=== PATIENT | male | born 1945 | race Caucasian/White ===

== ENCOUNTER 2020-03-16 07:06 | Outpatient (CLI) | payer MEDICARE, SELFPAY ==
--- NOTE | ~2020-03-16 | CT_ITS ---
EXAMINATION: CT abdomen pelvis w con DATE: 03/16/2020 07:58 INDICATION: Unintentional weight loss. TECHNIQUE: Computed tomography (CT) of the abdomen and pelvis was performed with 100 mL Omnipaque 350 intravenous contrast. Automated exposure control and iterative reconstruction technique were employe d. The dose-length product was 441.99 mGy-cm. COMPARISON: None. FINDINGS: The visualized portions of the lung bases demonstrate mild atelectasis. No pleural effusion . The heart size is normal. No pericardial effusion. 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 There is an 8 mm low-attenuation lesion at the periphery of right hepatic lobe, likely benign. The spleen, pancreas, adrenal glands, and right kidney are normal. There is a 1 mm stone in left kidney. There are bilateral inguinal hernias containing fat. The prostate is moderately enlarged. There is d iverticulosis of the colon without evidence of diverticulitis. There are no dilated loops of bowel. T he appendix is normal. There are no pathologically enlarged lymph nodes. There is no free intraperito kim fluid. There is lumbar levoscoliosis and severe spondylosis. IMPRESSION: 1. No specific evidence of malignancy. Reviewed, dictated and finalized at location B.
[2020-03-16 07:50] LABS: Estimated Glomerular Filt Rate > 60
== END 2020-03-16 07:07 | disposition home or self-care (01) ==
PROVIDERS: PCP Physician Assistant; Visit Provider Physician Assistant
DX: R63.4 Abnormal weight loss (principal)
CPT/HCPCS: 74177; Q9967

== ENCOUNTER 2021-05-08 01:41 | Day surgery (SDC) | payer MEDICARE, SELFPAY ==
[2021-04-23 10:54] VITALS: BMI 24.5
--- NOTE | 2021-05-08 08:23 | WPDHPUPDATE1 ---
History and Physical Update Update Date/Time: 05/08/21 08:23 History and Physical has been reviewed, including an updated exam of the patient. There are NO changes in the patient's condition. Risks, benefits, and alternatives have been discussed and questions answered. Patient agrees to proceed with procedure.
[2021-05-08 08:24] VITALS: BP 117/79; PULSE 127; RESP 18; O2SAT 98; BMI 23.3
[2021-05-08] MEDS: LACTATED RINGERS 1,000 ML 150 ML IV CONT (08:41)
--- NOTE | 2021-05-08 09:13 | P.PNAN_ITS ---
Anes - Initial Pre Proc Eval Procedure: Operation Date: 05/08/21 09:45 Proposed Procedures p Flexible Sigmoidoscopy - Jj Sullivan MD Date/Time: 05/08/21 09:13 Surgeon: Jj Sullivan MD Pre Op Diagnosis: Rectal Bleeding Patient Data Age: 76 Gender: M Height: 1.83 m Weight: 78.1 kg Last Vital Signs Pulse 127 H 05/08/21 08:24 Resp 18 05/08/21 08:24 BP 117/79 05/08/21 08:24 Pulse Ox 98 05/08/21 08:24 Allergies Allergy/AdvReac Type Severity Reaction Status Date / Time No Known Allergies Allergy Verified 05/08/21 08:23 Home Medications Medication Instructions Recorded Confirmed Type aspirin 81 mg tablet,delayed 81 mg PO DAILY 04/12/21 05/08/21 History release metoprolol succinate 25 mg 25 mg PO DAILY 04/12/21 05/08/21 History tablet,extended release 24 hr omeprazole 40 mg capsule,delayed 40 mg PO DAILY 04/12/21 05/08/21 History release Patient hx anesthesia problems: none Family hx anesthesia problems: none Results Review: All pre-operative results and documents have been reviewed as part of the pre-operative evaluation. COUNTS INCLUDE 234 BEDS AT THE [facility] Past Medical History Medical History GERD (gastroesophageal reflux disease) Hypertension Family History Family History Other Family history of malignant neoplasm Hypertension Social History Social History Smoking status: Never smoker Alcohol intake: never Substance use: never Living arrangements: with family Spiritual care concerns: No Anes - Eval Final PreProcedure Day of Procedure 05/08/21 09:13 Patient weight: normal Heart: regular rate and rhythm Lungs: clear to auscultation Airway: Mallampati scale class II Neurological: alert and oriented Last oral intake: >/= 8 hours ASA classification: II Emergent: no Anesthetic plan: proceed Anesthesia type and monitoring: general GIVS and standard monitoring Results Review: All pre-operative results and documents have been reviewed as part of the pre-operative evaluation. Informed Consent: The patient's anesthetic plan and its attendant risks and benefits were discussed with the patient/family/POA. Questions were solicited and answers provided to the satisfaction of the patient/family/POA.
[2021-05-08 09:32] VITALS: BP 96/54; PULSE 88; RESP 21; O2SAT 97
[2021-05-08 09:42] VITALS: BP 121/63; PULSE 88; RESP 23; O2SAT 96
[2021-05-08 09:52] VITALS: BP 133/72; PULSE 86; RESP 18; O2SAT 98
== END 2021-05-08 10:10 | disposition home or self-care (01) ==
PROVIDERS: PCP Physician Assistant; Visit Provider Internal Medicine Gastroenterology
PROC: 0DJD8ZZ Inspection of Lower Intestinal Tract, Via Natural or Artificial Opening Endoscopic (ICD-10-PCS; CPT 45330; principal; 2021-05-08 09:45)
DX: K62.5 Hemorrhage of anus and rectum (principal); K64.8 Other hemorrhoids; K57.30 Diverticulosis of large intestine without perforation or abscess without bleeding; K21.9 Gastro-esophageal reflux disease without esophagitis; I10 Essential (primary) hypertension; Z80.0 Family history of malignant neoplasm of digestive organs
CPT/HCPCS: 45330; J2704; J7120

== ENCOUNTER 2023-05-12 10:43 | Emergency (ER) | payer MEDICARE, SELFPAY ==
--- NOTE | ~2023-05-12 | XR_ITS ---
XR chest 2V 05/12/2023 13:17 Indication: Cough. Status post Covid. Procedure: PA and lateral views of the chest Comparison: No prior studies for comparison. Findings: There is right lower lobe airspace disease which may represent pneumonia or atelectasis. No pleural effusion. No edema. No pneumothorax. No acute osseous abnormality. There are cholecystectomy clips. Impression: 1: Right lower lobe airspace disease may represent pneumonia and/or atelectasis. Reviewed, dictated and finalized at location B. Impression: 1: Right lower lobe airspace disease may represent pneumonia and/or atelectasis .
[2023-05-12 11:03] VITALS: BP 122/73; PULSE 82; RESP 16; TEMP 36.4; O2SAT 97
[2023-05-12 11:10] VITALS: O2SAT 97
--- NOTE | 2023-05-12 12:44 | ED.GENADULT ---
HPI - General Adult General Chief complaint: Unspecified Stated complaint: I can't get over this stuff that I have. Time Seen by Provider: 05/12/23 12:00 History of Present Illness HPI narrative: Patient is a 78-year-old male presenting with diarrhea. Patient states that he was diagnosed with COVID about a month ago. Since that time he has had an ongoing cough. His PCP started him on Tylenol with codeine several weeks ago and he initially was struggling with constipation. States that he stopped taking the prescription and then he started to have diarrhea. States that it has irritated his hemorrhoids. He continues to feel generally weak and they are concerned that he is dehydrated. States that he was nauseated earlier but did not vomit. Reports normal urinary frequency and denies dysuria. He has been keeping down solids and fluids. No chest pain or shortness of breath. No fevers or chills. No further complaints. Related Data Home Medications Medication Instructions Recorded Confirmed aspirin 81 mg tablet,delayed 81 mg PO DAILY 04/12/21 05/08/21 release metoprolol succinate 25 mg 25 mg PO DAILY 04/12/21 05/08/21 tablet,extended release 24 hr omeprazole 40 mg capsule,delayed 40 mg PO DAILY 04/12/21 05/08/21 release Allergies Allergy/AdvReac Type Severity Reaction Status Date / Time No Known Allergies Allergy Verified 05/12/23 11:08 Review of Systems Review of Systems: All systems reviewed & are unremarkable except as noted in HPI and below PMFSH Past Medical History Medical History GERD (gastroesophageal reflux disease) Hypertension Family History Family History Other Family history of malignant neoplasm Hypertension Social History Social History Smoking status: Never smoker Alcohol intake: never Substance use: never Living arrangements: with family Spiritual care concerns: No Exam Narrative: GENERAL: Well-appearing, no acute distress HEAD: Normocephalic, atraumatic. EYES: PERRLA and EOMI. ENT: Mucous membranes moist. NECK: Supple. CHEST: Clear to auscultation. No respiratory distress. HEART: Regular rate and rhythm ABDOMEN: Soft, nontender, nondistended EXTREMITIES: Normal range of motion. SKIN: Warm, dry, no rash. NEURO: Alert and oriented x3. PSYCH: Normal mood and affect. Course Vital Signs Vital signs: Vital Signs Temperature 97.6 F 05/12/23 11:03 Pulse Rate 82 05/12/23 11:03 Respiratory Rate 16 05/12/23 11:03 Blood Pressure 122/73 05/12/23 11:03 Pulse Oximetry 97 05/12/23 11:03 Oxygen Delivery Room Air 05/12/23 11:03 Temperature 97.6 F 05/12/23 11:03 Pulse Rate 82 05/12/23 11:03 Respiratory Rate 16 05/12/23 11:03 Blood Pressure 122/73 05/12/23 11:03 Pulse Oximetry 97 05/12/23 11:10 Oxygen Delivery Room Air 05/12/23 11:10 Medical Decision Making MDM Narrative Medical decision making narrative: Patient is a 78-year-old male presenting with diarrhea and 1 month of cough. Vitals are stable. Exam remarkable for the above. Plan for basic labs, IV fluids, Zofran, chest x-ray. Chest x-ray with possible small right lower lobe pneumonia. We will start the patient on some Doxy. Blood work is unremarkable. UA is unremarkable. On reevaluation, the patient is resting comfortably. States that his nausea has improved. He feels comfortable going home. Advise close PCP follow-up. Appropriate return precautions given. Discharged in stable condition. Differential Diagnosis Differential Diagnosis: Pneumonia, postviral cough, diarrhea, dehydration Medical Records Medical records reviewed: Yes I reviewed the external patient's medical records. Vital Signs Vital Signs: Vital Signs Temperature 97.6 F 05/12/23 11:03 Pulse Rate 82
[2023-05-12] MEDS: SODIUM CHLORIDE 0.9% IV 1,000 ML 999 ML IV CONT (12:55)
[2023-05-12] MEDS: ONDANSETRON INJ 4 MG/2 ML VIAL IV PUSH (12:56)
[2023-05-12 13:49] LABS: Basophils Percent Auto 0.6 % (0.2-1.2); Eosinophils Absolute Auto 0.1 K/mm3 (0-0.3); Eosinophils Percent Auto 0.8 % (0-4.4); Hematocrit 33.6 % (42.0-52.0); Immature Granulocyte Absolute 0.03 K/mm3 (0.00-0.031); Immature Granulocyte Percent A 0.5 % (0-0.5); Lymphocytes Absolute Auto 1.22 K/mm3 (0.9-3.2); Lymphocytes Percent Auto 18.3 % (18.3-44.2); Mean Corpuscular HGB Conc 35.7 g/dl (32-36); Mean Corpuscular Hemoglobin 34.9 pg (26-34); Mean Corpuscular Volume 97.7 fl (80-100); Mean Platelet Volume 9.2 fl (7.4-10.4); Monocytes Absolute Auto 0.6 K/mm3 (0.1-0.6); Monocytes Percent Auto 9.2 % (2.6-8.5); Neutrophils Absolute Auto 4.7 K/mm3 (1.3-6.7); Neutrophils Percent Auto 70.6 % (45.5-73.1); Platelet Count Result 324 k/mm3 (150-375); Red Blood Count 3.44 M/mm3 (4.6-6.20); Red Cell Distribution Width 15.2 % (11.5-14.5); White Blood Count 6.7 K/mm3 (4.5-10.0)
[2023-05-12 13:59] LABS: Anion Gap 8 mmol/L (8-16); Blood Urea Nitrogen 16 mg/dL (9-20); Calcium 8.6 mg/dL (8.4-10.2); Carbon Dioxide 19 mmol/L (22-30); Chloride 109 mmol/L (98-107); Estimated CRCL calculation 85 ml/min; Estimated Glomerular Filt Rate > 60; Glucose 93 mg/dL (65-110); Sodium 136 mmol/L (137-145)
[2023-05-12 14:32] LABS: Appearance Urine Cloudy (Clear); Bacteria Urine None Seen /hpf; Bilirubin Urine 1+ (Negative); Blood Urine Negative (Negative); Color Urine Dark Yellow (Yellow); Glucose Urine UA Negative (Negative); Ketones Urine Trace mg/dL (Negative); Leukocyte Esterase Ur Trace LEU/UL (Negative); Nitrate Urine Negative (Negative); Non Pathogenic Casts 0-2; Protein Urine Negative (Negative); RBC Urine 0-2 /hpf (0-2); Specific Grav Ur 1.031 (1.001-1.035); Squamous Epithelial Cell Urine None seen /hpf (Few); WBC Urine 0-5 /hpf; pH Urine 5.5 (5.0-9.0)
[2023-05-12 14:38] LABS: Add Urine Microscopic? YES
== END 2023-05-12 15:24 | disposition home or self-care (01) ==
PROVIDERS: Emergency Provider Emergency Medicine; PCP Physician Assistant
DX: J18.9 Pneumonia, unspecified organism (principal); I10 Essential (primary) hypertension; K21.9 Gastro-esophageal reflux disease without esophagitis
CPT/HCPCS: 36415; 71046; 80048; 81001; 85025; 96361; 96374; 99284; J2405; J7030

== ENCOUNTER 2023-07-03 08:17 | Outpatient (CLI) | payer MEDICARE, SELFPAY ==
--- NOTE | 2023-07-03 | EST_ITS ---
Patient Info Name: Marek Schulz Age: 78 years : 1945 Gender: Male Ht: 72 in Wt: 165 lbs BSA: 1.95 m2 HR: 144 bpm BP: 199 / 84 mmHg Technical Quality: Fair Exam Date: 07/03/2023 8:50 AM Exam Location: Echo Lab Exam Room: stress lab Patient Status: Outpatient Admit Date: 07/03/2023 Staff Ordering Physician: Thomas Senior MD (lashell/pro) Package Dyer: Hellen Andrea RDCS Attending Provider: PAOLA GUZMÁN NP Referring Physician: Parrish LARSON; Exercise Technologist: Hellen Andrea RCS Nurse: Paola Guzmán APN Exam Type: CA stress echo Study Info Indications - alvarez Treadmill exercise stress echocardiogram is performed. Summary 1. Reduced functional capacity, achieving 5.3 METs of workload. 2. Occasional PACs during exercise. 3. There is baseline motion artifact during parts of exercise which limits interpretation. No clear abnormal ST/T wave changes diagnostic of ischemia with exercise. 4. Normal left venticular systolic function with no regional wall motion abnormalities noted at rest. 5. Negative stress echocardiogram for ischemia. 6. Stress test supervised by Paola Guzmán NP. Stress test interpreted by Thomas Senior MD. Stress Echo Findings Left Ventricle Normal left venticular systolic function with no regional wall motion abnormalities noted at rest. Normal augmentation of all wall segments without evidence of ischemia with stress. Protocol: [facility] Stress ECG Details Stage: REST Duration (min): 0 min : 59 sec Speed (mph): 0.0 Grade (%): 0 HR (bpm): 63 SBP (mmHg): 142 DBP (mmHg): 77 METS: --- Stage: REST Duration (min): 9 min : 2 sec Speed (mph): 0.0 Grade (%): 0 HR (bpm): 73 SBP (mmHg): 142 DBP (mmHg): 77 METS: --- Stage: STAGE 1 Duration (min): 1 min : 0 sec Speed (mph): 1.7 Grade (%): 10 HR (bpm): 105 SBP (mmHg): 142 DBP (mmHg): 77 METS: --- Stage: STAGE 1 Duration (min): 2 min : 0 sec Speed (mph): 1.7 Grade (%): 10 HR (bpm): 124 SBP (mmHg): 142 DBP (mmHg): 77 METS: --- Stage: STAGE 1 Duration (min): 3 min : 0 sec Speed (mph): 1.7 Grade (%): 10 HR (bpm): 136 SBP (mmHg): 199 DBP (mmHg): 84 METS: --- Stage: STAGE 2 Duration (min): 1 min : 0 sec Speed (mph): 0.0 Grade (%): 0 HR (bpm): 130 SBP (mmHg): 199 DBP (mmHg): 84 METS: --- Stage: STAGE 2 Duration (min): 2 min : 0 sec Speed (mph): 0.0 Grade (%): 0 HR (bpm): 110 SBP (mmHg): 199 DBP (mmHg): 84 METS: --- Stage: STAGE 2 Duration (min): 3 min : 0 sec Speed (mph): 0.0 Grade (%): 0 HR (bpm): 99 SBP (mmHg): 199 DBP (mmHg): 84 METS: --- Stage: STAGE 2 Duration (min): 4 min : 0 sec Speed (mph): 0.0 Grade (%): 0 HR (bpm): 82 SBP (mmHg): 199 DBP (mmHg): 84 METS: --- Stage: STAGE 2 Duration (min): 5 min : 0 sec Speed (mph): 0.0 Grade (%): 0 HR (bpm): 78 SBP (mmHg): 183 DBP (mmHg): 87 METS: --- Stage: STAGE 2 Duration (min): 5 min : 20 sec Speed (mph): 0.0 Grade (%):
== END 2023-07-03 08:18 | disposition home or self-care (01) ==
LOC: ANHCARD 08:20
PROVIDERS: PCP Physician Assistant; Visit Provider Internal Medicine
DX: R06.09 Other forms of dyspnea (principal)
CPT/HCPCS: 93351

== ENCOUNTER 2024-12-21 13:17 | Emergency (ER) | payer MEDICARE, SELFPAY ==
[2024-12-21 13:28] VITALS: BP 132/68; PULSE 80; RESP 16; TEMP 36.8; O2SAT 96
--- OUTSIDE RECORDS SUMMARY | 2024-12-21 13:28 | XMS_ITS | Data Portability ---
[facility] Address [address] [place] [address] Assessment No assessment recorded. Plan of Treatment Reminders Order Date Submit Date Provider Last Modified By Organization Details Last Modified Time Details Appointments None recorded. Lab CBC 2024 025 [facility], [address], [address], [place], [address], 5 13:02:01 iron + TIBC + ferritin, serum 2024 025 [facility], [address], [address], [place], [address], 5 13:01:58 CMP, serum or plasma 2024 025 [facility], [address], [address], [place], [address], 5 13:02:00 fecal occult blood, immunoassay , stool 2024 025 [facility], [address] [facility], [place], [address], 5 16:35:29 lipid panel, serum 2023 024 [facility], [address], [address], [place], [address], 4 11:00:37 carcinoembr yonic Ag, quant, serum or plasma 2023 024 [facility] [place], [address], [address], [place], [address], 4 11:00:39 CMP, serum or plasma 2023 024 [facility] [place], [address], [address], [place], [address], 4 11:00:38 CBC w/ auto diff 2023 024 [facility] [place], [address], [address]avi [address], [place], [address], 4 11:00:38 lipid panel, serum 2022 023 [facility] [place], [address], [address], [place], [address], 3 06:55:59 urinalysis, complete 2022 023 [facility] [place], [address], [address], [place], [address], 3 06:56:01 CBC w/ auto diff 2022 023 [facility] [place], [address], [address], [place], [address], 3 06:56:02 iron + TIBC + ferritin, serum 2022 023 [facility] [place], [address], [address], [place], [address], 3 06:55:59 CMP, serum or plasma 2022 023 [facility] [place], [address], [address], [place], [address], 3 06:56:00 carcinoembr yonic Ag, quant, serum or plasma 2022 023 [facility] [place], [address], [address], [place], [address], 3 06:56:03 erythrocyte sedimentati on rate by westergren method 2022 023 [facility], [address], [address], [place], [address], 3 06:56:01 carcinoembr yonic Ag, quant, serum or plasma 2021 022 WA[facility]A [facility] [place], [address], [address], [place], [address], 2 01:14:04 CMP, serum or plasma 2021 022 [facility], [address], [address], [place], [address], 2 01:14:03 lipid panel, serum 2021 022 [facility], [address], [address]avi [address], [place], [address], 2 01:14:02 CBC w/ auto diff 2021 022 [facility], [address], [address], [place], [address], 2 01:14:03 Referral cardiologis t referral 2022 023 [facility], [address], [address], [place], [address], 3 11:53:13 Procedures None recorded. Surgeries None recorded. Imaging None recorded. Medication Orders omeprazole 40 mg capsule,del ayed release 2023 024 [facility], [address] [place] [address], [address], [place], [place], [id number], 4 15:22:08 hydrocortis one 2.5 % topical cream with perineal applicator 2022 023 [id number], [address], [place], [place], [id number], 3 11:14:54 omeprazole 40 mg capsule,del ayed release 2022 023 WAIMEA [facility], [address] [place] [address], [address], [place], [place], [id number], 3 11:14:49 cyanocobala min (vit B-12) 1,000 mcg/mL injection solution 2022 023 Not available 14:53:11 acetaminoph en 300 mg-codeine 30 mg tablet 2022 023 [facility], [address], [place], [address], 3 10:36:02 Patient TargetsNo targets recorded. Patient Instructions Encounter Date Encounter Id Patient Instructions Last Modified By Organization Details Last Modified Time 03/19/2022 [id number] advance care planning: care instructions Not available 03/19/2022 11:45:30 preventing falls : care instructions Not available 03/19/2022 11:45:30 Medicare [facility] Preventive Checklist Not available 03/19/2022 11:45:30 eating healthy foods: care instructions Not available 03/19/2022 11:45:30 04/29/2023 [id number] advance care planning: care instructions Not available 04/29/2023 10:33:36 preventing falls : care instructions Not available 04/29/2023 10:33:37 eating healthy foods: care instructions Not available 04/29/2023 10:33:37 04/15/2024 [id number] advance care planning: care instructions Not available 04/15/2024 15:22:08 preventing falls : care instructions Not available 04/15/2024 15:22:08 Medicare [facility] Preventive Checklist Not available 04/15/2024 15:22:08 eating healthy foods: care instructions Not available 04/15/2024 15:22:08 AD8 Dementia Screening Interview Not available 04/15/2024 15:22:08 Reason for Referral [place] Referral for Dy spnea on exertion Referring Physician: Guadalupe Ware, Family Medicine, Encounter Date: 04/29/2023 Results Created Date Observation Date Name Description Value Unit Range Abnormal Flag Note LastModifiedBy Organization Detail LastModifiedTime 03/19/20 22 03/21/2022 LIPID PANEL , STAND KIMBERLYN cholesterol, total 161 mg/dL <200 normal Not Available [facility] [address], [address], 03/21/2022 01:14:02 03/19/20 22 03/21/2022 LIPID PANEL , STAND KIMBERLYN HDL cholesterol 68 mg/dL > or = 40 normal Not Available [facility] [address], [address], 03/21/2022 01:14:02 03/19/20 22 03/21/2022 LIPID PANEL , STAND KIMBERLYN triglyceride s 62 mg/dL <150 normal Not Available [facility] [address], [address], 03/21/2022 01:14:02 03/19/20 22 03/21/2022 LIPID PANEL , STAND KIMBERLYN LDL-choleste rol 79 mg/dL _(zina c) normal Refer ence range : <100 Catie able range <100 mg/dL for prima ry preve ntion ; <70 mg/dL for patie nts with CHD or diabe tic patie nts with > or = 2 CHD risk facto rs. LDL-C is now calcu lated using the [facility] n-Hop kins daryl ross, which is a valid ated novel metho d provi mg rodriguez r accur acy than the Fried gene equat ion in the estim ation of LDL-C . Magaly n SS et al. BRIT. 2013; 310(1 9): 2061- 2068 (http ://ed ucati on.Remotemedical carleeFracture. Athersys/f aq/FA Q164) Not Available [address], [address], 03/21/2022 01:14:02 03/19/20 22 03/21/2022 LIPID PANEL , STAND KIMBERLYN chol/HDLC ratio 2.4 (calc ) <5.0 normal Not Available [address], [address], 03/21/2022 01:14:02 03/19/2003/21/2022 LIPID PANEL , STAND KIMBERLYN non HDL cholesterol 93 mg/dL _(zina c) <130 normal For patie nts with diabe lazaro plus 1 major ASCVD risk facto r, treat ing to a non-H DL-C goal of <100 mg/dL (LDL- C of <70 mg/dL ) is mere perales n. Not Available [address] [address] [place], [address], 03/21/2022 01:14:02 03/19/20 22 03/21/2022 COMPR EHENS MATTHEW METAB OLIC PANEL glucose 90 mg/dL 65-99 normal Fasti ng refer ence inter mike Not Available [address] [address] [place], [address], 03/21/2022 01:14:03 03/19/20 22 03/21/2022 COMPR EHENS MATTHEW METAB OLIC PANEL urea nitrogen (BUN) 17 mg/dL 7-25 normal Not Available [address] [address] [place], [address], 03/21/2022 01:14:03 03/19/20 22 03/21/2022 COMPR EHENS MATTHEW METAB OLIC PANEL creatinine 0.91 mg/dL 0.70-1 .28 normal Not Available [address], [address], 03/21/2022 01:14:03 03/19/20 22 03/21/2022 COMPR EHENS MATTHEW METAB OLIC PANEL eGFR 88 mL/mi n/1.7 3m2 > or = 60 normal The eGFR is based on the CKD-E PI 2020 equat ion. To calcu late the new eGFR from a previ ous Creat inine or Cysta tin C resul t, go to https ://felicity cuello.jermaine higgins/saad moe s/ kdoqi /gfr% 5Fcal culat or Not Available [address], [address], 03/21/2022 01:14:03 03/19/20 22 03/21/2022 COMPR EHENS MATTHEW METAB OLIC PANEL BUN/creatini ne ratio NOT APPLIC ABLE (calc ) 6-22 Not Available [address], [address], 03/21/2022 01:14:03 03/19/20 22 03/21/2022 COMPR EHENS MATTHEW METAB OLIC PANEL sodium 138 mmol/ L 135-14 6 normal Not Available [address], [address], 03/21/2022 01:14:03 03/19/20 22 03/21/2022 COMPR EHENS MATTHEW METAB OLIC PANEL potassium 4.8 mmol/ L 3.5-5. 3 normal Not Available [address], [address], 03/21/2022 01:14:03 03/19/20 22 03/21/2022 COMPR EHENS MATTHEW METAB OLIC PANEL chloride 107 mmol/ L 98-110 normal Not Available [address], [address], 03/21/2022 01:14:03 03/19/20 22 03/21/2022 COMPR EHENS MATTHEW METAB OLIC PANEL carbon dioxide 24 mmol/ L 20-32 normal Not Available [address], [address], 03/21/2022 01:14:03 03/19/20 22 03/21/2022 COMPR EHENS MATTHEW METAB OLIC PANEL calcium 9.1 mg/dL 8.6-10 .3 normal Not Available [address], [address], 03/21/2022 01:14:03 03/19/20 22 03/21/2022 COMPR EHENS MATTHEW METAB OLIC PANEL protein, total 6.5 g/dL 6.1-8. 1 normal Not Available [address], [address], 03/21/2022 01:14:03 03/19/20 22 03/21/2022 COMPR EHENS MATTHEW METAB OLIC PANEL albumin 4.2 g/dL 3.6-5. 1 normal Not Available [address], [address], 03/21/2022 01:14:03 03/19/20 22 03/21/2022 COMPR EHENS MATTHEW METAB OLIC PANEL globulin 2.3 g/dL_ (calc ) 1.9-3. 7 normal Not Available [address], [address], 03/21/2022 01:14:03 03/19/20 22 03/21/2022 COMPR EHENS MATTHEW METAB OLIC PANEL albumin/glob ulin ratio 1.8 (calc ) 1.0-2. 5 normal Not Available [address], [address], 03/21/2022 01:14:03 03/19/20 22 03/21/2022 COMPR EHENS MATTHEW METAB OLIC PANEL bilirubin, total 0.9 mg/dL 0.2-1. 2 normal Not Available [address], [address], 03/21/2022 01:14:03 03/19/20 22 03/21/2022 COMPR EHENS MATTHEW METAB OLIC PANEL alkaline phosphatase 67 U/L 35-144 normal Not Available [facility] [employer] [address], [address], 03/21/2022 01:14:03 03/19/20 22 03/21/2022 COMPR EHENS MATTHEW METAB OLIC PANEL AST 15 U/L 10-35 normal Not Available [address], [address], 03/21/2022 01:14:03 03/19/20 22 03/21/2022 COMPR EHENS MATTHEW METAB OLIC PANEL ALT 10 U/L 9-46 normal Not Available [address], [address], 03/21/2022 01:14:03 03/19/20 22 03/21/2022 CBC (INCL UDES DIFF/ PLT) white blood cell count 5.7 thous and/u L 3.8-10 .8 normal Not Available [address], [address], 03/21/2022 01:14:03 03/19/20 22 03/21/2022 CBC (INCL UDES DIFF/ PLT) red blood cell count 4.00 killian on/uL 4.20-5 .80 low Not Available [address], [address], 03/21/2022 01:14:03 03/19/20 22 03/21/2022 CBC (INCL UDES DIFF/ PLT) hemoglobin 13.1 g/dL 13.2-1 7.1 low Not Available [address], [address], 03/21/2022 01:14:03 03/19/2003/21/2022 CBC (INCL UDES DIFF/ PLT) hematocrit 38.1 % 38.5-5 0.0 low Not Available [address], [address], 03/21/2022 01:14:03 03/19/20 22 03/21/2022 CBC (INCL UDES DIFF/ PLT) MCV 95.3 fL 80.0-1 00.0 normal Not Available [facility] [address], [address], 03/21/2022 01:14:03 03/19/20 22 03/21/2022 CBC (INCL UDES DIFF/ PLT) MCH 32.8 pg 27.0-3 3.0 normal Not Available [address], [address], 03/21/2022 01:14:03 03/19/2003/21/2022 CBC (INCL UDES DIFF/ PLT) MCHC 34.4 g/dL 32.0-3 6.0 normal Not Available [address], [address], 03/21/2022 01:14:03 03/19/2003/21/2022 CBC (INCL UDES DIFF/ PLT) RDW 13.0 % 11.0-1 5.0 normal Not Available [facility] [address], [address], 03/21/2022 01:14:03 03/19/2003/21/2022 CBC (INCL UDES DIFF/ PLT) platelet count 285 thous and/u L 140-40 0 normal Not Available [facility] [address], [address], 03/21/2022 01:14:03 03/19/20 22 03/21/2022 CBC (INCL UDES DIFF/ PLT) MPV 10.4 fL 7.5-12 .5 normal Not Available [address], [address], 03/21/2022 01:14:03 03/19/20 22 03/21/2022 CBC (INCL UDES DIFF/ PLT) absolute neutrophils 3842 cells /uL 1500-7 800 normal Not Available [address], [address], 03/21/2022 01:14:03 03/19/20 22 03/21/2022 CBC (INCL UDES DIFF/ PLT) absolute lymphocytes 1146 cells /uL 850-39 00 normal Not Available [address], [address], 03/21/2022 01:14:03 03/19/20 22 03/21/2022 CBC (INCL UDES DIFF/ PLT) absolute monocytes 547 cells /uL 200-95 0 normal Not Available [address], [address], 03/21/2022 01:14:03 03/19/20 22 03/21/2022 CBC (INCL UDES DIFF/ PLT) absolute eosinophils 103 cells /uL 15-500 normal Not Available [address], [address], 03/21/2022 01:14:03 03/19/20 22 03/21/2022 CBC (INCL UDES DIFF/ PLT) absolute basophils 63 cells /uL 0-200 normal Not Available [address], [address], 03/21/2022 01:14:03 03/19/20 22 03/21/2022 CBC (INCL UDES DIFF/ PLT) neutrophils 67.4 % normal Not Available [address], [address], 03/21/2022 01:14:03 03/19/20 22 03/21/2022 CBC (INCL UDES DIFF/ PLT) lymphocytes 20.1 % normal Not Available [address], [address], 03/21/2022 01:14:03 03/19/20 22 03/21/2022 CBC (INCL UDES DIFF/ PLT) monocytes 9.6 % normal Not Available [facility] [address], [address], 03/21/2022 01:14:03 03/19/20 22 03/21/2022 CBC (INCL UDES DIFF/ PLT) eosinophils 1.8 % normal Not Available [address], [address], 03/21/2022 01:14:03 03/19/20 22 03/21/2022 CBC (INCL UDES DIFF/ PLT) basophils 1.1 % normal Not Available [address], [address], 03/21/2022 01:14:03 03/19/20 22 03/21/2022 CEA cea 0.7 NG/mL see note: normal Refer ence Range : Non-S moker : <2.5 Smoke r: <5.0 This test was perfo rmed using the [employer] chemi lumin escen t metho d. Value s obtai rosibel from diffe rent assay metho ds canno t be used inter jackson eably . CEA level s, regar dless of value , shoul d not be inter prete d as absol [place] evide nce of the prese nce or absen ce of disea se. Not Available [address], [address], 03/21/2022 01:14:04 04/29/20 23 05/01/2023 IRON, TIBC AND NYA TIN PANEL iron, total 79 mcg/d L 50-180 normal Not Available [address], [address], 05/01/2023 06:55:59 04/29/2005/01/2023 IRON, TIBC AND NYA TIN PANEL iron binding capacity 210 mcg/d L_(ca lc) 250-42 5 low Not Available [address], [address], 05/01/2023 06:55:59 04/29/2005/01/2023 IRON, TIBC AND NYA TIN PANEL % saturation 38 %_(ca lc) 20-48 normal Not Available [address], [address], 05/01/2023 06:55:59 04/29/2005/01/2023 IRON, TIBC AND NYA TIN PANEL ferritin 166 NG/mL 24-380 normal Not Available [address], [address], 05/01/2023 06:55:59 04/29/2005/01/2023 LIPID PANEL , STAND KIMBERLYN cholesterol, total 131 mg/dL <200 normal Not Available [address], [address], 05/01/2023 06:55:59 04/29/2005/01/2023 LIPID PANEL , STAND KIMBERLYN HDL cholesterol 45 mg/dL > or = 40 normal Not Available [address], [address], 05/01/2023 06:55:59 04/29/2005/01/2023 LIPID PANEL , STAND KIMBERLYN triglyceride s 100 mg/dL <150 normal Not Available [address], [address], 05/01/2023 06:55:59 04/29/2005/01/2023 LIPID PANEL , STAND KIMBERLYN LDL-choleste rol 67 mg/dL _(zina c) normal Refer ence range : <100 Catie able range <100 mg/dL for prima ry preve ntion ; <70 mg/dL for patie nts with CHD or diabe tic patie nts with > or = 2 CHD risk facto rs. LDL-C is now calcu lated using the Mag[employer] n-Hop kins calcu sherri n, which is a valid ated novel metho d provi ding michael r accur acy than the Fried gene equat ion in the estim ation of LDL-C . Magaly ross SS et al. BRIT. 2013; 310(1 5): 2061- 2068 (http ://ed ucati on.Remotemedical carleeFracture. com/f aq/FA Q164) Not Available [facility] [address] [address] [place], [address], 05/01/2023 06:55:59 04/29/2005/01/2023 LIPID PANEL , STAND KIMBERLYN chol/HDLC ratio 2.9 (calc ) <5.0 normal Not Available [facility] [address] [address] [place], [address], 05/01/2023 06:55:59 04/29/2005/01/2023 LIPID PANEL , STAND KIMBERLYN non HDL cholesterol 86 mg/dL _(zina c) <130 normal For patie nts with diabe lazaro plus 1 major ASCVD risk facto r, treat ing to a non-H DL-C goal of <100 mg/dL (LDL- C of <70 mg/dL ) is consi dered a thera peuti c optio n. Not Available [employer] [facility] [address] [facility] [place], [address], 05/01/2023 06:55:59 04/29/2005/01/2023 COMPR EHENS MATTHEW METAB OLIC PANEL glucose 94 mg/dL 65-99 normal Fasti ng refer ence inter mike Not Available [facility] [address] [address] [place], [address], 05/01/2023 06:56:00 04/29/2005/01/2023 COMPR EHENS MATTHEW METAB OLIC PANEL urea nitrogen (BUN) 12 mg/dL 7-25 normal Not Available [address], [place], [address], 05/01/2023 06:56:00 04/29/2005/01/2023 COMPR EHENS MATTHEW METAB OLIC PANEL creatinine 0.78 mg/dL 0.70-1 .28 normal Not Available [address], [address], 05/01/2023 06:56:00 04/29/2005/01/2023 COMPR EHENS MATTHEW METAB OLIC PANEL eGFR 92 mL/mi n/1.7 3m2 > or = 60 normal Not Available [address], [address], 05/01/2023 06:56:00 04/29/2005/01/2023 COMPR EHENS MATTHEW METAB OLIC PANEL BUN/creatini ne ratio SEE NOTE: (calc ) 6-22 Not Repor carolyn: BUN and Creat inine are withi n refer ence range . Not Available [address], [address], 05/01/2023 06:56:00 04/29/2005/01/2023 COMPR EHENS MATTHEW METAB OLIC PANEL sodium 139 mmol/ L 135-14 6 normal Not Available [address] [address] [place], [address], 05/01/2023 06:56:00 04/29/2005/01/2023 COMPR EHENS MATTHEW METAB OLIC PANEL potassium 4.5 mmol/ L 3.5-5. 3 normal Not Available [address], [address], 05/01/2023 06:56:00 04/29/2005/01/2023 COMPR EHENS MATTHEW METAB OLIC PANEL chloride 107 mmol/ L 98-110 normal Not Available [address], [address], 05/01/2023 06:56:00 04/29/2005/01/2023 COMPR EHENS MATTHEW METAB OLIC PANEL carbon dioxide 25 mmol/ L 20-32 normal Not Available [address], [address], 05/01/2023 06:56:00 04/29/2005/01/2023 COMPR EHENS MATTHEW METAB OLIC PANEL calcium 8.7 mg/dL 8.6-10 .3 normal Not Available [address], [address], 05/01/2023 06:56:00 04/29/2005/01/2023 COMPR EHENS MATTHEW METAB OLIC PANEL protein, total 6.1 g/dL 6.1-8. 1 normal Not Available [address], [address], 05/01/2023 06:56:00 04/29/2005/01/2023 COMPR EHENS MATTHEW METAB OLIC PANEL albumin 3.9 g/dL 3.6-5. 1 normal Not Available [address], [address], 05/01/2023 06:56:00 04/29/2005/01/2023 COMPR EHENS MATTHEW METAB OLIC PANEL globulin 2.2 g/dL_ (calc ) 1.9-3. 7 normal Not Available [address], [address], 05/01/2023 06:56:00 04/29/2005/01/2023 COMPR EHENS MATTHEW METAB OLIC PANEL albumin/glob ulin ratio 1.8 (calc ) 1.0-2. 5 normal Not Available [address], [address], 05/01/2023 06:56:00 04/29/2005/01/2023 COMPR EHENS MATTHEW METAB OLIC PANEL bilirubin, total 0.8 mg/dL 0.2-1. 2 normal Not Available [address], [address], 05/01/2023 06:56:00 04/29/2005/01/2023 COMPR EHENS MATTHEW METAB OLIC PANEL alkaline phosphatase 72 U/L 35-144 normal Not Available [address], [address], 05/01/2023 06:56:00 04/29/2005/01/2023 COMPR EHENS MATTHEW METAB OLIC PANEL AST 16 U/L 10-35 normal Not Available [address], [address], 05/01/2023 06:56:00 04/29/2005/01/2023 COMPR EHENS MATTHEW METAB OLIC PANEL ALT 10 U/L 9-46 normal Not Available [address], [address], 05/01/2023 06:56:00 04/29/2005/01/2023 URINA LYSIS , COMPL ETE color DARK YELLOW yellow normal Not Available [address], [address], 05/01/2023 06:56:00 04/29/2005/01/2023 URINA LYSIS , COMPL ETE appearance TURBID clear abnormal Not Available [address], [address], 05/01/2023 06:56:00 04/29/2005/01/2023 URINA LYSIS , COMPL ETE specific gravity 1.022 1.001- 1.035 normal Not Available [address], [address], 05/01/2023 06:56:00 04/29/2005/01/2023 URINA LYSIS , COMPL ETE pH < OR = 5.0 5.0-8. 0 normal Not Available [address], [address], 05/01/2023 06:56:00 04/29/2005/01/2023 URINA LYSIS , COMPL ETE glucose NEGATI VE negati ve normal Not Available [address], [address], 05/01/2023 06:56:00 04/29/2005/01/2023 URINA LYSIS , COMPL ETE bilirubin NEGATI VE negati ve normal Not Available [address], [address], 05/01/2023 06:56:00 04/29/2005/01/2023 URINA LYSIS , COMPL ETE ketones NEGATI VE negati ve normal Not Available [address], [address], 05/01/2023 06:56:00 04/29/2005/01/2023 URINA LYSIS , COMPL ETE occult blood NEGATI VE negati ve normal Not Available [address], [address], 05/01/2023 06:56:00 04/29/2005/01/2023 URINA LYSIS , COMPL ETE protein NEGATI VE negati ve normal Not Available [address], [address], 05/01/2023 06:56:00 04/29/2005/01/2023 URINA LYSIS , COMPL ETE nitrite NEGATI VE negati ve normal Not Available [address], [address], 05/01/2023 06:56:00 04/29/2005/01/2023 URINA LYSIS , COMPL ETE leukocyte esterase NEGATI VE negati ve normal Not Available [address], [address], 05/01/2023 06:56:00 04/29/2005/01/2023 URINA LYSIS , COMPL ETE WBC NONE SEEN /hpf < or = 5 normal Not Available [address], [address], 05/01/2023 06:56:00 04/29/2005/01/2023 URINA LYSIS , COMPL ETE RBC NONE SEEN /hpf < or = 2 normal Not Available [address], [address], 05/01/2023 06:56:00 04/29/2005/01/2023 URINA LYSIS , COMPL ETE squamous epithelial cells NONE SEEN /hpf < or = 5 normal Not Available [address], [address], 05/01/2023 06:56:00 04/29/2005/01/2023 URINA LYSIS , COMPL ETE bacteria NONE SEEN /hpf none seen normal Not Available [address], [address], 05/01/2023 06:56:00 04/29/2005/01/2023 URINA LYSIS , COMPL ETE hyaline cast NONE SEEN /lpf none seen normal Not Available [address], [address], 05/01/2023 06:56:00 04/29/2005/01/2023 SED RATE BY MODIF IED KRYSTAL HIGGINSREN sed rate by modified westergren 5 mm/h < or = 20 normal Not Available [address], [address], 05/01/2023 06:56:01 04/29/2005/01/2023 CBC (INCL UDES DIFF/ PLT) white blood cell count 6.8 thous and/u L 3.8-10 .8 normal Not Available [address], [address], 05/01/2023 06:56:02 04/29/2005/01/2023 CBC (INCL UDES DIFF/ PLT) red blood cell count 4.07 killian on/uL 4.20-5 .80 low Not Available [address], [address], 05/01/2023 06:56:02 04/29/2005/01/2023 CBC (INCL UDES DIFF/ PLT) hemoglobin 13.2 g/dL 13.2-1 7.1 normal Not Available [address], [address], 05/01/2023 06:56:02 04/29/2005/01/2023 CBC (INCL UDES DIFF/ PLT) hematocrit 38.4 % 38.5-5 0.0 low Not Available [address], [address], 05/01/2023 06:56:02 04/29/2005/01/2023 CBC (INCL UDES DIFF/ PLT) MCV 94.3 fL 80.0-1 00.0 normal Not Available [facility] [address], [address], 05/01/2023 06:56:02 04/29/2005/01/2023 CBC (INCL UDES DIFF/ PLT) MCH 32.4 pg 27.0-3 3.0 normal Not Available [address] [place], [address], 05/01/2023 06:56:02 04/29/2005/01/2023 CBC (INCL UDES DIFF/ PLT) MCHC 34.4 g/dL 32.0-3 6.0 normal Not Available [address], [address], 05/01/2023 06:56:02 04/29/2005/01/2023 CBC (INCL UDES DIFF/ PLT) RDW 13.6 % 11.0-1 5.0 normal Not Available [address], [address], 05/01/2023 06:56:02 04/29/2005/01/2023 CBC (INCL UDES DIFF/ PLT) platelet count 279 thous and/u L 140-40 0 normal Not Available [address], [address], 05/01/2023 06:56:02 04/29/2005/01/2023 CBC (INCL UDES DIFF/ PLT) MPV 9.6 fL 7.5-12 .5 normal Not Available [address], [address], 05/01/2023 06:56:02 04/29/2005/01/2023 CBC (INCL UDES DIFF/ PLT) absolute neutrophils 4903 cells /uL 1500-7 800 normal Not Available [address], [address], 05/01/2023 06:56:02 04/29/2005/01/2023 CBC (INCL UDES DIFF/ PLT) absolute lymphocytes 884 cells /uL 850-39 00 normal Not Available [address], [address], 05/01/2023 06:56:02 04/29/2005/01/2023 CBC (INCL UDES DIFF/ PLT) absolute monocytes 884 cells /uL 200-95 0 normal Not Available [address], [address], 05/01/2023 06:56:02 04/29/2005/01/2023 CBC (INCL UDES DIFF/ PLT) absolute eosinophils 88 cells /uL 15-500 normal Not Available [facility] [address], [address], 05/01/2023 06:56:02 04/29/2005/01/2023 CBC (INCL UDES DIFF/ PLT) absolute basophils 41 cells /uL 0-200 normal Not Available [address], [address], 05/01/2023 06:56:02 04/29/2005/01/2023 CBC (INCL UDES DIFF/ PLT) neutrophils 72.1 % normal Not Available [address] [address], [address], 05/01/2023 06:56:02 04/29/2005/01/2023 CBC (INCL UDES DIFF/ PLT) lymphocytes 13.0 % normal Not Available [address], [address], 05/01/2023 06:56:02 04/29/2005/01/2023 CBC (INCL UDES DIFF/ PLT) monocytes 13.0 % normal Not Available [facility] [address], [address], 05/01/2023 06:56:02 04/29/2005/01/2023 CBC (INCL UDES DIFF/ PLT) eosinophils 1.3 % normal Not Available [facility] [address], [address], 05/01/2023 06:56:02 04/29/2005/01/2023 CBC (INCL UDES DIFF/ PLT) basophils 0.6 % normal Not Available [address], [address], 05/01/2023 06:56:02 04/29/2005/01/2023 CEA cea <2.0 NG/mL see note: normal Refer ence Range : Non-S moker : <2.5 Smoke r: <5.0 This test was perfo rmed using the Alaie ns chemi lumin escen t metho d. Value s obtai rosibel from diffe rent assay metho ds canno t be used inter jackson eably . CEA level s, regar dless of value , shoul d not be inter prete d as absol [place] evide nce of the prese nce or absen ce of disea se. Not Available [address], [address], 05/01/2023 06:56:03 04/15/20 24 04/16/2024 LIPID PANEL , STAND KIMBERLYN cholesterol, total 139 mg/dL <200 normal Not Available [address], [address], 04/16/2024 11:00:37 04/15/2004/16/2024 LIPID PANEL , STAND KIMBERLYN HDL cholesterol 62 mg/dL > or = 40 normal Not Available [address], [address], 04/16/2024 11:00:37 04/15/2004/16/2024 LIPID PANEL , STAND KIMBERLYN triglyceride s 90 mg/dL <150 normal Not Available [address], [address], 04/16/2024 11:00:37 04/15/2004/16/2024 LIPID PANEL , STAND KIMBERLYN LDL-choleste rol 60 mg/dL _(zina c) normal Refer ence range : <100 Catie able range <100 mg/dL for prima ry preve ntion ; <70 mg/dL for patie nts with CHD or diabe tic patie nts with > or = 2 CHD risk facto rs. LDL-C is now calcu lated using the Magaly n-Hop kins efrau sherri n, which is a valid ated novel metho d provi ding michael r accur acy than the Fried gene equat ion in the estim ation of LDL-C . Magaly ross SS et al. BRIT. 2013; 310(1 9): 2061- 2068 (http ://ed ucati on.Qu estFracture. com/f aq/FA Q164) Not Available [address], [address], 04/16/2024 11:00:37 04/15/20 24 04/16/2024 LIPID PANEL , STAND KIMBERLYN chol/HDLC ratio 2.2 (calc ) <5.0 normal Not Available [address], [address], 04/16/2024 11:00:37 04/15/20 24 04/16/2024 LIPID PANEL , STAND KIMBERLYN non HDL cholesterol 77 mg/dL _(zina c) <130 normal For patie nts with diabe lazaro plus 1 major ASCVD risk facto r, treat ing to a non-H DL-C goal of <100 mg/dL (LDL- C of <70 mg/dL ) is consi sulema a gerald sorenson optio n. Not Available [address] [address] [place], [address], 04/16/2024 11:00:37 04/15/20 24 04/16/2024 COMPR EHENS MATTHEW METAB OLIC PANEL glucose 89 mg/dL 65-99 normal Fasti ng refer ence inter mike Not Available [employer] [place] [address] [place], [address], 04/16/2024 11:00:38 04/15/20 24 04/16/2024 COMPR EHENS MATTHEW METAB OLIC PANEL urea nitrogen (BUN) 18 mg/dL 7-25 normal Not Available [address], [address], 04/16/2024 11:00:38 04/15/20 24 04/16/2024 COMPR EHENS MATTHE[place] METAB OLIC PANEL creatinine 0.94 mg/dL 0.70-1 .28 normal Not Available [address], [address], 04/16/2024 11:00:38 04/15/20 24 04/16/2024 COMPR EHENS MATTHEW METAB OLIC PANEL eGFR 83 mL/mi n/1.7 3m2 > or = 60 normal Not Available [address], [address], 04/16/2024 11:00:38 04/15/20 24 04/16/2024 COMPR EHENS MATTHEW METAB OLIC PANEL BUN/creatini ne ratio SEE NOTE: (calc ) 6-22 Not Repor carolyn: BUN and Creat inine are withi n refer ence range . Not Available [address], [address], 04/16/2024 11:00:38 04/15/20 24 04/16/2024 COMPR EHENS MATTHE[place] METAB OLIC PANEL sodium 141 mmol/ L 135-14 6 normal Not Available [address], [address], 04/16/2024 11:00:38 04/15/20 24 04/16/2024 COMPR EHENS MATTHE[place] METAB OLIC PANEL potassium 4.6 mmol/ L 3.5-5. 3 normal Not Available [address], [address], 04/16/2024 11:00:38 04/15/20 24 04/16/2024 COMPR EHENS MATTHEW METAB OLIC PANEL chloride 109 mmol/ L 98-110 normal Not Available [address] [place], [address], 04/16/2024 11:00:38 04/15/20 24 04/16/2024 COMPR EHENS MATTHEW METAB OLIC PANEL carbon dioxide 27 mmol/ L 20-32 normal Not Available [address], [address], 04/16/2024 11:00:38 04/15/20 24 04/16/2024 COMPR EHENS MATTHE[place] METAB OLIC PANEL calcium 9.0 mg/dL 8.6-10 .3 normal Not Available [address], [address], 04/16/2024 11:00:38 04/15/20 24 04/16/2024 COMPR EHENS MATTHE[place] METAB OLIC PANEL protein, total 6.0 g/dL 6.1-8. 1 low Not Available [address], [address], 04/16/2024 11:00:38 04/15/20 24 04/16/2024 COMPR EHENS MATTHEW METAB OLIC PANEL albumin 3.7 g/dL 3.6-5. 1 normal Not Available [address], [address], 04/16/2024 11:00:38 04/15/20 24 04/16/2024 COMPR EHENS MATTHEW METAB OLIC PANEL globulin 2.3 g/dL_ (calc ) 1.9-3. 7 normal Not Available [address], [address], 04/16/2024 11:00:38 04/15/20 24 04/16/2024 COMPR EHENS MATTHEW METAB OLIC PANEL albumin/glob ulin ratio 1.6 (calc ) 1.0-2. 5 normal Not Available [address], [address], 04/16/2024 11:00:38 04/15/20 24 04/16/2024 COMPR EHENS MATTHEW METAB OLIC PANEL bilirubin, total 0.6 mg/dL 0.2-1. 2 normal Not Available [address], [address], 04/16/2024 11:00:38 04/15/20 24 04/16/2024 COMPR EHENS MATTHEW METAB OLIC PANEL alkaline phosphatase 69 U/L 35-144 normal Not Available [facility] [address], [address], 04/16/2024 11:00:38 04/15/20 24 04/16/2024 COMPR EHENS MATTHEW METAB OLIC PANEL AST 15 U/L 10-35 normal Not Available [address], [address], 04/16/2024 11:00:38 04/15/20 24 04/16/2024 COMPR EHENS MATTHEW METAB OLIC PANEL ALT 9 U/L 9-46 normal Not Available [address], [address], 04/16/2024 11:00:38 04/15/20 24 04/16/2024 CBC (INCL UDES DIFF/ PLT) white blood cell count 6.4 thous and/u L 3.8-10 .8 normal Not Available [address], [address], 04/16/2024 11:00:38 04/15/20 24 04/16/2024 CBC (INCL UDES DIFF/ PLT) red blood cell count 3.94 killian on/uL 4.20-5 .80 low Not Available [address], [address], 04/16/2024 11:00:38 04/15/20 24 04/16/2024 CBC (INCL UDES DIFF/ PLT) hemoglobin 12.7 g/dL 13.2-1 7.1 low Not Available [address], [address], 04/16/2024 11:00:38 04/15/20 24 04/16/2024 CBC (INCL UDES DIFF/ PLT) hematocrit 37.7 % 38.5-5 0.0 low Not Available [address], [address], 04/16/2024 11:00:38 04/15/20 24 04/16/2024 CBC (INCL UDES DIFF/ PLT) MCV 95.7 fL 80.0-1 00.0 normal Not Available [address], [address], 04/16/2024 11:00:38 04/15/20 24 04/16/2024 CBC (INCL UDES DIFF/ PLT) MCH 32.2 pg 27.0-3 3.0 normal Not Available [address], [address], 04/16/2024 11:00:38 04/15/20 24 04/16/2024 CBC (INCL UDES DIFF/ PLT) MCHC 33.7 g/dL 32.0-3 6.0 normal Not Available [address], [address], 04/16/2024 11:00:38 04/15/20 24 04/16/2024 CBC (INCL UDES DIFF/ PLT) RDW 13.3 % 11.0-1 5.0 normal Not Available [facility] [address], [address], 04/16/2024 11:00:38 04/15/20 24 04/16/2024 CBC (INCL UDES DIFF/ PLT) platelet count 314 thous and/u L 140-40 0 normal Not Available [address], [address], 04/16/2024 11:00:38 04/15/20 24 04/16/2024 CBC (INCL UDES DIFF/ PLT) MPV 9.9 fL 7.5-12 .5 normal Not Available [address], [address], 04/16/2024 11:00:38 04/15/20 24 04/16/2024 CBC (INCL UDES DIFF/ PLT) absolute neutrophils 4237 cells /uL 1500-7 800 normal Not Available [address], [address], 04/16/2024 11:00:38 04/15/20 24 04/16/2024 CBC (INCL UDES DIFF/ PLT) absolute lymphocytes 1389 cells /uL 850-39 00 normal Not Available [address], [address], 04/16/2024 11:00:38 04/15/20 24 04/16/2024 CBC (INCL UDES DIFF/ PLT) absolute monocytes 595 cells /uL 200-95 0 normal Not Available [address], [address], 04/16/2024 11:00:38 04/15/20 24 04/16/2024 CBC (INCL UDES DIFF/ PLT) absolute eosinophils 128 cells /uL 15-500 normal Not Available [address], [address], 04/16/2024 11:00:38 04/15/20 24 04/16/2024 CBC (INCL UDES DIFF/ PLT) absolute basophils 51 cells /uL 0-200 normal Not Available [address], [address], 04/16/2024 11:00:38 04/15/20 24 04/16/2024 CBC (INCL UDES DIFF/ PLT) neutrophils 66.2 % normal Not Available [address] [place], [address], 04/16/2024 11:00:38 04/15/20 24 04/16/2024 CBC (INCL UDES DIFF/ PLT) lymphocytes 21.7 % normal Not Available [address], [address], 04/16/2024 11:00:38 04/15/20 24 04/16/2024 CBC (INCL UDES DIFF/ PLT) monocytes 9.3 % normal Not Available [facility] [address], [address], 04/16/2024 11:00:38 04/15/20 24 04/16/2024 CBC (INCL UDES DIFF/ PLT) eosinophils 2.0 % normal Not Available [address], [address], 04/16/2024 11:00:38 04/15/20 24 04/16/2024 CBC (INCL UDES DIFF/ PLT) basophils 0.8 % normal Not Available [address], [address], 04/16/2024 11:00:38 04/15/20 24 04/16/2024 CEA cea <2.0 NG/mL see note: normal Refer ence Range : Non-S moker : <2.5 Smoke r: <5.0 This test was perfo rmed using the Sieme ns chemi lumin escen t metho d. Value s obtai rosibel from diffe rent assay metho ds canno t be used inter jackson eably . CEA level s, regar dless of value , shoul d not be inter prete d as absol [place] evide nce of the prese nce or absen ce of disea se. Not Available [address], [address], 04/16/2024 11:00:39 04/15/20 24 04/19/2024 IRON, TIBC AND NYA TIN PANEL iron, total 115 mcg/d L 50-180 normal Not Available [address], [address], 04/19/2024 17:32:11 04/15/20 24 04/19/2024 IRON, TIBC AND NYA TIN PANEL iron binding capacity 243 mcg/d L_(ca lc) 250-42 5 low Not Available [address], [address], 04/19/2024 17:32:11 04/15/20 24 04/19/2024 IRON, TIBC AND NYA TIN PANEL % saturation 47 %_(ca lc) 20-48 normal Not Available [address], [address], 04/19/2024 17:32:11 04/15/20 24 04/19/2024 IRON, TIBC AND NYA TIN PANEL ferritin 96 NG/mL 24-380 normal Not Available [address], [address], 04/19/2024 17:32:11 04/15/20 24 04/19/2024 TEST AUTHO RIZAT ION test name: IRON, TIBC AND FERRIT IN PANEL Not Available [address], [address], 04/19/2024 17:32:14 04/15/2004/19/2024 TEST AUTHO RIZAT ION test code: 5616SB [id number] Not Available [address], [address], 04/19/2024 17:32:14 04/15/20 24 04/19/2024 TEST AUTHO RIZAT ION client contact: ABBY TITUS Not Available [address], [address], 04/19/2024 17:32:14 04/15/20 24 04/19/2024 TEST AUTHO RIZAT ION report always message signature The labor atory testi ng on this patie nt was verba lly reque sted or confi rmed by the order ing anum formann or his or her autho rized repre senta tive after conta ct with an emplo cantrell of [facility] s[facility] Alex al regul ation s requi re that we maint ain on file writt en autho rizat ion for all labor atorekta testi ng. Accor dingl y we are askin g that the order ing physi luis manuel or his or her autho rized repre senta tive sign a copy of this repor t and promp tly retur n it to the clien t servi ce repre senta tive. Signa ture: __ Not Available [facility] [employer] [address] [address] [place], [address], 04/19/2024 17:32:14 04/15/20 24 04/19/2024 TEST AUTHO RIZAT ION comment Fax pieter r: [phone] Not Available [employer] [address] [address] [place], [address], 04/19/2024 17:32:14 04/15/20 24 04/19/2024 VITAM IN B12/F OLATE , SERUM PANEL vitamin B12 497 pg/mL 200-11 00 normal Not Available [facility] [employer] [address] [address] [place], [address], 04/19/2024 17:32:15 04/15/20 24 04/19/2024 VITAM IN B12/F OLATE , SERUM PANEL folate, serum 17.5 NG/mL normal Refer ence Range Low: <3.4 Borde rline : 3.4-5 .4 Wanda l: >5.4 Not Available [employer] [address] [address] [address], [place], [address], 04/19/2024 17:32:15 04/27/2005/02/2024 Bacte brock ident ified in Speci men by Anaer obe cultu re specimen source identified TOE,LE FT SPEC DESCR IPTIO N TOE,L EFT 04/27 7:55 AM CDT [facility] Not Available Not Available 12/14/2024 03:18:08 04/27/2005/02/2024 Bacte brock ident ified in Speci men by Anaer obe cultu re service comment NO SPECIA L REQUES T SPECI AL REQUE STS NO SPECI AL REQUE ST 04/27 7:55 AM CDT [facility] Not Available Not Available 12/14/2024 03:18:08 04/27/2005/02/2024 Bacte brock ident ified in Speci men by Anaer obe cultu re microscopic observation [identifier] in specimen by gram stain RARE WHITE BLOOD CELLS SEEN GRAM STAIN RESUL T RARE WHITE BLOOD CELLS SEEN 04/27 2:32 PM CDT [facility] Not Available Not Available 12/14/2024 03:18:08 04/27/2005/02/2024 Bacte brock ident ified in Speci men by Anaer obe cultu re microscopic observation [identifier] in specimen by gram stain MANY RED BLOOD CELLS SEEN GRAM STAIN RESUL T MANY RED BLOOD CELLS SEEN 04/27 2:32 PM CDT [facility] Not Available Not Available 12/14/2024 03:18:08 04/27/2005/02/2024 Bacte brock ident ified in Speci men by Anaer obe cultu re microscopic observation [identifier] in specimen by gram stain NO ORGANI SMS SEEN GRAM STAIN RESUL T NO ORGAN ISMS SEEN 04/27 2:32 PM CDT [facility] Not Available Not Available 12/14/2024 03:18:08 04/27/20 24 05/02/2024 Bacte brock ident ified in Speci men by Anaer obe cultu re bacteria identified in specimen by culture NO GROWTH 5 DAYS CULTU RE RESUL T NO GROWT H 5 DAYS 05/02 6:55 AM CDT [facility] Not Available Not Available 12/14/2024 03:18:08 04/27/20 24 05/02/2024 Bacte brock ident ified in Speci men by Anaer obe cultu re bacteria identified in specimen by culture NOTE: ANAERO BIC CULTUR ES ARE ROUTIN SAMANTHA SCREEN ED FOR BOTH AEROBI C AND ANAERO BIC ORGANI SMS. CULTU RE RESUL T NOTE: ANAER OBIC CULTU RES ARE ROUTI AARON SCREE ROSIBEL FOR BOTH AEROB IC AND ANAER OBIC ORGAN ISMS. 05/02 6:55 AM CDT [facility] Not Available Not Available 12/14/2024 03:18:08 04/27/2004/28/2024 Patho logy study [facility] [address] [place] [address] Teleph one: [phone], extens ion [phone] Pathol ogy Report Surgic al Pathol ogy Report Name: PONCE GIBSON Bernardo en #: [id number] Age: [birth year] (Age: 79) Locati on: [facility] Sex: M Proced ure Date: Hospit al #: [id number] Date Receiv ed: Date Report ed: Provid er: GELACIO MACK DPM Source : Toe, left great Clinic al Histor y: Exosto sis and soft tissue mass left hallux . Gross Descri ption: Receiv ed in formal in, labele d with a patien t label and as left great toe is a disrup carolyn cystic struct ure that is 1.5 x 1.2 x 1.0 cm and is compos ed of firm pink-t an tissue . It is sectio rosibel to reveal thick white- mandel materi al. No bone is identi fied. No white chalky materi al is identi fied. Repres entati ve tissue is submit carolyn in casset te 1. Gross examin ation (when applic able), interp retati on, and sign [facility] [address] [place] [address]. FINAL DIAGNO SIS: Soft tissue , left great toe, excisi on: -Epide rmal inclus ion cyst. Elec tronic ally Signed Out GAVI JAIME MD PATHO LOGY [facility] Dep[facility] tment of Labor atory Medic ine [address] [facility] [place] [address] Telep conrad: , exten eleanor [phone] Patho logy Repor t Surgi zina Patho logy Repor t Name: PONCE GOTTI Speci men #: [id number] Age: [birth year] (Age: 79) Locat ion: [facility] Sex: M Proce dure Date: 2023 Hospi hrapreet #: [id number] Date Recei kathy: 2023 Date Repor carolyn: 2023 Provi carl: GELACIO Cabrera DPM Sourc e: Toe, left great Clini zina Histo ry: Exost osis and soft tissu e mass left hallu x. Gross Descr iptio n: Recei kathy in forma aroldo, label ed with a patie nt label and as left great toe is a disru pted cysti c struc ture that is 1.5 x 1.2 x 1.0 cm and is compo sed of firm pink- mandel tissu e. It is secti oned to revea l thick white -mandel mater ial. No bone is ident ified . No white chalk y mater ial is ident ified . Repre senta tive tissu e is submi tted in casse tte 1. Gross exami natio n (when appli cable ), inter preta tion, and sign out were perfo rmed at [facility], [address] [facility], [place] [address] . FINAL DIAGN OSIS: Soft tissu e, left great toe, excis ion: -Epid ermal inclu eleanor cyst. Abigail ctron icall y Nila d Out ERNESTINE Cabrera MD [facility] Not Available Not Available 12/14/2024 03:18:07 12/14/1912/15/2024 IRON, TIBC AND NYA TIN PANEL iron, total 181 mcg/d L 50-180 high Not Available [address], [address], 12/15/2024 13:01:58 12/14/19 25 12/15/2024 IRON, TIBC AND NYA TIN PANEL iron binding capacity 251 mcg/d L_(ca lc) 250-42 5 normal Not Available [address], [address], 12/15/2024 13:01:58 12/14/19 25 12/15/2024 IRON, TIBC AND NYA TIN PANEL % saturation 72 %_(ca lc) 20-48 high Not Available [address], [address], 12/15/2024 13:01:58 12/14/19 25 12/15/2024 IRON, TIBC AND NYA TIN PANEL ferritin 128 NG/mL 24-380 normal Not Available [address], [address], 12/15/2024 13:01:58 12/14/19 25 12/15/2024 COMPR EHENS MATTHE[place] METAB OLIC PANEL glucose 86 mg/dL 65-99 normal Fasti ng refer ence inter mike Not Available [address] [place], [address], 12/15/2024 13:02:00 12/14/19 25 12/15/2024 COMPR EHENS MATTHEW METAB OLIC PANEL urea nitrogen (BUN) 16 mg/dL 7-25 normal Not Available [address], [address], 12/15/2024 13:02:00 12/14/19 25 12/15/2024 COMPR EHENS MATTHEW METAB OLIC PANEL creatinine 0.89 mg/dL 0.70-1 .28 normal Not Available [address], [address], 12/15/2024 13:02:00 12/14/19 25 12/15/2024 COMPR EHENS MATTHEW METAB OLIC PANEL eGFR 88 mL/mi n/1.7 3m2 > or = 60 normal Not Available [address], [address], 12/15/2024 13:02:00 12/14/19 25 12/15/2024 COMPR EHENS MATTHE[place] METAB OLIC PANEL BUN/creatini ne ratio SEE NOTE: (calc ) 6-22 Not Repor carolyn: BUN and Creat inine are withi n refer ence range . Not Available [address], [address], 12/15/2024 13:02:00 12/14/19 25 12/15/2024 COMPR EHENS MATTHE[place] METAB OLIC PANEL sodium 139 mmol/ L 135-14 6 normal Not Available [address], [address], 12/15/2024 13:02:00 12/14/19 25 12/15/2024 COMPR EHENS MAT[place] METAB OLIC PANEL potassium 4.9 mmol/ L 3.5-5. 3 normal Not Available [address], [address], 12/15/2024 13:02:00 12/14/19 25 12/15/2024 COMPR EHENS MATTHE[place] METAB OLIC PANEL chloride 107 mmol/ L 98-110 normal Not Available [address], [address], 12/15/2024 13:02:00 12/14/19 25 12/15/2024 COMPR EHENS MATTHE[place] METAB OLIC PANEL carbon dioxide 28 mmol/ L 20-32 normal Not Available [address], [address], 12/15/2024 13:02:00 12/14/19 25 12/15/2024 COMPR EHENS MATTHE[place] METAB OLIC PANEL calcium 9.3 mg/dL 8.6-10 .3 normal Not Available [address], [address], 12/15/2024 13:02:00 12/14/19 25 12/15/2024 COMPR EHENS MATTHE[place] METAB OLIC PANEL protein, total 6.3 g/dL 6.1-8. 1 normal Not Available [address], [address], 12/15/2024 13:02:00 12/14/19 25 12/15/2024 COMPR EHENS MATTHE[place] METAB OLIC PANEL albumin 4.1 g/dL 3.6-5. 1 normal Not Available [address], [address], 12/15/2024 13:02:00 12/14/19 25 12/15/2024 COMPR EHENS MATTHE[place] METAB OLIC PANEL globulin 2.2 g/dL_ (calc ) 1.9-3. 7 normal Not Available [address], [address], 12/15/2024 13:02:00 12/14/19 25 12/15/2024 COMPR EHENS MATTHEW METAB OLIC PANEL albumin/glob ulin ratio 1.9 (calc ) 1.0-2. 5 normal Not Available [address], [address], 12/15/2024 13:02:00 12/14/19 25 12/15/2024 COMPR EHENS MAT[place] METAB OLIC PANEL bilirubin, total 1.0 mg/dL 0.2-1. 2 normal Not Available [address], [address], 12/15/2024 13:02:00 12/14/1912/15/2024 COMPR EHENS MATTHE[place] METAB OLIC PANEL alkaline phosphatase 68 U/L 35-144 normal Not Available [facility] [employer] [address], [address], 12/15/2024 13:02:00 12/14/19 25 12/15/2024 COMPR EHENS MATTHE[place] METAB OLIC PANEL AST 16 U/L 10-35 normal Not Available [address], [address], 12/15/2024 13:02:00 12/14/1912/15/2024 COMPR EHENS MAT[place] METAB OLIC PANEL ALT 11 U/L 9-46 normal Not Available [address], [address], 12/15/2024 13:02:00 12/14/19 25 12/15/2024 CBC (H/H, RBC, INDIC ES, WBC, PLT) white blood cell count 6.2 thous and/u L 3.8-10 .8 normal Not Available [address], [address], 12/15/2024 13:02:01 12/14/19 25 12/15/2024 CBC (H/H, RBC, INDIC ES, WBC, PLT) red blood cell count 4.20 killian on/uL 4.20-5 .80 normal Not Available [address], [address], 12/15/2024 13:02:01 12/14/1912 1212/15/2024 CBC (H/H, RBC, INDIC ES, WBC, PLT) hemoglobin 13.2 g/dL 13.2-1 7.1 normal Not Available [address], [address], 12/15/2024 13:02:01 12/14/1912/15/2024 CBC (H/H, RBC, INDIC ES, WBC, PLT) hematocrit 41.1 % 38.5-5 0.0 normal Not Available [address], [address], 12/15/2024 13:02:01 12/14/1912/15/2024 CBC (H/H, RBC, INDIC ES, WBC, PLT) MCV 97.9 fL 80.0-1 00.0 normal Not Available [facility] [address], [address], 12/15/2024 13:02:01 12/14/1912/15/2024 CBC (H/H, RBC, INDIC ES, WBC, PLT) MCH 31.4 pg 27.0-3 3.0 normal Not Available [address], [address], 12/15/2024 13:02:01 12/14/1912/15/2024 CBC (H/H, RBC, INDIC ES, WBC, PLT) MCHC 32.1 g/dL 32.0-3 6.0 normal For adult s, a sligh t decre ase in the calcu lated MCHC value (in the range of 30 to 32 g/dL) is most likel y not clini maritza signi gonzales t; linh er, it shoul d be inter prete d with cauti on in corre latio n with other red cell edmond eters and the patie nt's clini zina condi tion. Not Available [facility] [address], [address], 12/15/2024 13:02:01 12/14/1912/15/2024 CBC (H/H, RBC, INDIC ES, WBC, PLT) RDW 13.5 % 11.0-1 5.0 normal Not Available [address] [address] [place], [address], 12/15/2024 13:02:01 12/14/1912/15/2024 CBC (H/H, RBC, INDIC ES, WBC, PLT) platelet count 324 thous and/u L 140-40 0 normal Not Available [facility] [address] [address] [place], [address], 12/15/2024 13:02:01 12/14/19 25 12/15/2024 CBC (H/H, RBC, INDIC ES, WBC, PLT) MPV 9.8 fL 7.5-12 .5 normal Not Available [address], [address], 12/15/2024 13:02:01 05/12/20 23 05/12/2023 XR, abdom en, 2 or more views + XR, chest , 1 view No observ ation record ed. [email or web address] [place] [address] [address], [place], [address], 05/14/2023 09:45:07 07/18/2007/03/2023 exerc ise stres s test No observ ation record ed. Not Available 2022 12:57:30 Result Notes None recorded. Problems Name Problem SNOMED Code Status Onset Date Resolution Date Notes Provider Name and Address Organization Details Recorded Time Hyperlip idemia 04422962 Completed 03/06/2021 MIKE Soto Attn: Accounting ,[address] [facility], [place], [address] , [facility] 1 11:24:45 Gastroes ophageal reflux disease 861833760 Active Tara diallo, MD - [facility] 6 10:34:12 Conducti ve hearing loss 55661093 Active Tara Ocasio null, MD - [facility] 6 10:34:30 Impotenc e Active Tara Ocasio null, MD - [facility] 6 10:34:40 Closed fracture of rib 63430352 Completed 201308/26/2019 Location : None;Sev erity: Moderate ;Progres s: Stable;A dded By: Patrick Kovacs;Yusuf dd to Current Problems : NO MIKE Soto Attn: Accounting ,[address] [place], [address] , [facility] - [facility] 0 11:30:34 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 Completed 201203/29/2013 Location : None;Sev erity: Moderate ;Progres s: Stable;A dded By: Ashanti Wagoner;Add to Current Problems : NO Not Available [facility] 7 07:58:49 Actinic keratosi s Active 2012 Location : None;Sev erity: Moderate ;Progres s: Stable;A dded By: Lazara Fuentes;Add to Current Problems : NO Not Available [facility] 7 07:58:49 Screenin g procedur e Completed 201409/30/2014 Location : None;Sev erity: Moderate ;Progres s: Stable;A dded By: Lazara Fuentes;Add to Current Problems : YES Not Available [facility] 7 07:58:49 Psychose xual dysfunct ion associat ed with inhibite d libido 777638137 Completed 201408/26/2019 Location : None;Sev erity: Moderate ;Progres s: Stable;A dded By: Lazara Fuentes;Add to Current Problems : YES MIKE Soto Attn: Accounting ,[address] [place], [address] , [facility] 0 11:31:36 Neoplasm of uncertai n behavior of skin 35936224 Completed 201404/07/2015 Location : None;Sev erity: Moderate ;Progres s: Stable;A dded By: Lazara Fuentes;Add to Current Problems : YES Not Available [facility] 7 07:58:49 Lumbar sprain 207863101 Completed 201404/07/2015 Location : None;Sev erity: Moderate ;Progres s: Stable;A dded By: Lazara Fuentes;Add to Current Problems : YES Not Available [facility] 7 07:58:49 Benign essentia l hyperten eleanor 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 Active 2014 Location : None;Sev erity: Moderate ;Progres s: Stable;A dded By: Lazara Fuentes s Julien;Add to Current Problems : YES Not Available [facility] 7 07:58:49 Family history of malignan t neoplasm of thoracic cavity structur e 337241411 Active 2014 Location : None;Sev erity: Moderate ;Progres s: Stable;A dded By: Lazara Fuentes;Add to Current Problems : YES Not Available [facility] 7 07:58:50 Prostate specific antigen above referenc e range 833233677 Completed 201409/08/2015 Location : None;Sev erity: Moderate ;Progres s: Stable;A dded By: Lazara Fuentes;Add to Current Problems : YES Not Available [facility] 7 07:58:50 Screenin g for malignan t neoplasm of colon Active 2015 Location : None;Sev erity: Moderate ;Progres s: Stable;A dded By: Lazara Fuentes;Add to Current Problems : YES Not Available [facility] 7 07:58:50 Senile hyperker atosis 838887449 Completed 201209/16/2018 Location : None;Sev erity: Moderate ;Progres s: Stable;A dded By: Brooke Oviedo;Add to Current Problems : NO MIKE Soto Attn: [place], [address] , [facility] 9 14:54:17 Acute sinusiti s 97021992 Completed 201409/09/2015 Location : None;Sev erity: Moderate ;Progres s: Stable;A dded By: Brooke Oviedo;Add to Current Problems : YES Not Available [facility] 7 07:58:50 Diarrhea 12288433 Completed 201406/02/2015 Location : None;Sev erity: Moderate ;Progres s: Stable;A dded By: Nelda Peña; Add to Current Problems : YES Not Available [facility] 7 07:58:50 Neoplasm of uncertai n behavior of skin 87910360 Completed 201403/16/2015 Location : None;Sev erity: Moderate ;Progres s: Stable;A dded By: Karen Milton;Ad d to Current Problems : YES Not Available [facility] 7 07:58:50 Benign essentia l hyperten eleanor 9495839 Completed 201106/23/2012 Location : None;Sev erity: Moderate ;Progres s: Stable;A dded By: Marycruz Reich i;A dd to Current Problems : NO Not Available [facility] 7 07:58:50 Middle ear conducti ve hearing loss 39445381 Completed 201408/26/2019 Location : None;Sev erity: Moderate ;Progres s: Stable;A dded By: Marycruz Reich i;A dd to Current Problems : YES MIKE Soto Attn: Accounting [address] [place], [address] , [facility] 0 11:31:26 Abnormal weight loss 495103627 Completed 201509/16/2018 Location : None;Sev erity: Moderate ;Progres s: Stable;A dded By: Marycruz Reich i;A dd to Current Problems : NO MIKE Soto Attn: Accounting ,[address] [place], [address] , [facility] 9 14:54:12 Contact dermatit is due to plants, except food Completed 201502/03/2016 Location : None;Sev erity: Moderate ;Progres s: Stable;A dded By: Sabine Reich i dd to Current Problems : YES Not Available [facility] 7 07:58:51 Jose Francisco webster [id number] Completed 201108/26/2019 Location : None;Sev erity: Moderate ;Progres s: Stable;A dded By: Jose Angel Milton d to Current Problems : YES MIKE Soto Attn: Accounting [address] [place], [address] , [facility] 0 11:30:41 Problem Notes None recorded. Procedures Surgical History Date Name Laterality Status Provider Name and Address Organization Details Recorded Time 018 Knee arthroscopy/surger y completed Macey Zhou RN MD - [facility] 06/22/2018 12:49:40 [facility] 13:39:13 Cholecystectomy completed Marycruz Rodriguez [facility] 11/13/2017 13:39:07 Imaging Results None recorded. Procedure Notes None recorded. Medical Equipment None Reported. Allergies Allergen ID Allergen Name Allergen Category Reaction Reaction Severity Criticality Documentation Date Start Date Code Code System Note Provider Name and Address Organization Details Recorded Time 203437 Paxlovid medicatio n diarrhea Not available Not available 12/18/2021 [id number] UNK Jacklyn diallo MD - [facility] 2 14:03:15 Medications Name Sig Start Date Stop Date Status Note LastModified by Organization Details LastModified Time cyclobenz aprine 10 mg tablet TAKE 1 TABLET BY MOUTH THREE TIMES DAILY NEEDED . DO NOT DRIVE AFTER TAKING. 03/06 completed Not Available Not Available Not Available azelastin e 0.05 % eye drops INSTILL 1 DROP INTO BOTH EYES TWICE DAILY 12/14 completed Not Available Not Available Not Available prednison e 10 mg tablet take 6 tabs daily x 3 days, then 4 tabs daily x 3 days, then 2 tabs daily x 3 days then 1 tab daily x 3 days with food 07/01 completed Not Available Not Available Not Available doxycycli ne hyclate 100 mg capsule TAKE 1 CAPSULE BY MOUTH TWICE DAILY 04/15 completed Not Available Not Available Not Available ibuprofen 800 mg tablet active Not Available Not Available Not Available metoprolo l succinate ER 50 mg tablet,ex tended release 24 hr Take 1 tablet(s ) by mouth daily 08/01 completed RxNorm: 552262;A llow Substitu tion: True Not Available Not Available Not Available hydrocodo ne 5 mg-acetam inophen 325 mg tablet TAKE 1 TABLET BY MOUTH EVERY 6 HOURS NEEDED FOR PAIN OR ACUTE PAIN 12/14 completed Not Available Not Available Not Available ondansetr on HCl 4 mg tablet 07/25 completed Not Available Not Available Not Available Debrox 6.5 % ear drops INSTILL 5 DROPS INTO AFFECTED EAR(S) BY OTIC ROUTE 2 TIMES PER DAY 08/26 completed Not Available Not Available Not Available acetamino phen 300 mg-codein e 30 mg tablet Take 1 tablet every 6 hours by oral route as needed. 05/29 completed Not Available Not Available Not Available ciproflox acin 500 mg tablet 06/22 completed Not Available Not Available Not Available omeprazol e 40 mg capsule,d elayed release one po daily active Not Available Not Available No t Available aspirin 81 mg tablet,de layed release Take 1 tablet every day by oral route. 03/19 completed Not Available Not Available Not Available cefadroxi l 500 mg capsule 12/14 completed Not Available Not Available Not Available hydrocort isone 2.5 % topical cream with perineal applicato r APPLY THIN LAYER TOPICALL Y TO THE AFFECTED AREA 2 TO 4 TIMES DAILY FOR UP TO 2 WEEKS active Not Available Not Available No t Available ceftriaxo ne 1 gram solution for injection Take 1 g by injectio n route. 11/13 completed dboundsm a Not Available Not Available Not Available amoxicill in 875 mg tablet Take 1 tablet po bid with food for 10 days 11/13 completed Not Available Not Available Not Available meclizine 25 mg tablet Take 1 tab PO TID PRN for Dizzines s 08/26 completed Not Available Not Available Not Available benzonata te 100 mg capsule Take 2 capsules 3 times a day by oral route as needed for 14 days. 09/16 completed Not Available Not Available Not Available cyanocoba svetlana (vit B-12) 1,000 mcg/mL injection solution Inject 1 mL every other day by subcutan eous route. 04/15 completed Not Available Not Available Not Available esomepraz ole magnesium 40 mg capsule,d elayed release Take 1 capsule every day by oral route. 06/22 completed Not Available Not Available Not Available neomycin- polymyxin -dexameth 3.5 mg/mL-10, 000 unit/mL-0 .1% eye drops INSTILL 1 DROP 4 TIMES DAILY IN THE AFFECTED EYE AFTER WARM COMPRESS 05/29 completed Not Available Not Available Not Available aspirin 81 mg chewable tablet Chew 1 tablet(s ) by mouth qam 07/25 completed RxNorm: 518707;A corrie Substitu tion: True Not Available Not Available Not Available metoprolo l succinate ER 25 mg tablet,ex tended release 24 hr TAKE 1 TABLET BY MOUTH ONCE DAILY 2023 active Not Available Not Available Not Avai lable Anusol-HC 25 mg rectal supposito ry Insert 1 supposit ory twice a day by rectal route for 14 days. 03/29 completed Not Available Not Available Not Available methylpre dnisolone 4 mg tablets in a dose pack TAKE DIRECTED WITH FOOD 03/19 completed Not Available Not Available Not Available ondansetr on 4 mg disintegr ating tablet DISSOLVE 1 TABLET ON THE TONGUE DAILY FOR 5 DAYS NEEDED FOR NAUSEA OR VOMITING active Not Available Not Available No t Available fluticaso ne propionat e 50 mcg/actua tion nasal spray,jenyn [place] 1 spray every day by intranas al route. 09/16 completed Not Available Not Available Not Available doxycycli ne hyclate 100 mg tablet TAKE 1 TABLET BY MOUTH TWICE DAILY FOR 7 DAYS 05/29 completed Not Available Not Available Not Available dicyclomi ne 10 mg capsule Take 1 cap po qid prn 07/10 completed RxNorm: 142739;A llow Substitu tion: True Not Available Not Available Not Available naproxen 500 mg tablet TAKE 1 TABLET BY MOUTH TWICE DAILY NEEDED WITH MEALS 03/06 completed Not Available Not Available Not Available neomycin 3.5 mg/g-poly myxin B 10,000 unit/g-de xameth 0.1 % eye oint APPLY INTO EACH EYE AT BEDTIME 05/29 completed Not Available Not Available Not Available Mucinex DM 60 mg-1,200 mg tablet,ex tended release 12 hr TAKE 1 TABLET EVERY 12 HOURS BY MOUTH NEEDED 12/18 completed Not Available Not Available Not Available Paxlovid 300 mg (150 mg x 2)-100 mg tablets in a dose pack FOLLOW PACKAGE DIRECTIO NS 12/18 completed Not Available Not Available Not Available Vitals Date Recorded Body height Body mass index (BMI) Body weight Oxygen saturation Oxygen saturation in Arterial blood by Pulse oximetry Heart rate Body temperature Systolic blood pressure Diastolic blood pressure Provider Name and Address Organization Details Last Updated DateTime 5 182.88 cm 23.1 kg/m2 56425.5 g 96 % 96 % 72 /min 98.1 [degF] 109 mm[Hg] 70 mm[Hg] Greta Lugo MA MD - [facility] 5 10:11:10 Date Recorded Body height Body mass index (BMI) Body weight Body temperature Oxygen saturation Oxygen saturation in Arterial blood by Pulse oximetry Heart rate Systolic blood pressure Diastolic blood pressure Provider Name and Address Organization Details Last Updated DateTime 2 182.88 cm 23.3 kg/m2 34320.8 9 g 97.7 [degF] 96 % 96 % 67 /min 114 mm[Hg] 66 mm[Hg] Timothy Jeffries MA MD - [facility] 2 11:04:49 Date Recorded Body height Body mass index (BMI) Body weight Body temperature Heart rate Oxygen saturation Oxygen saturation in Arterial blood by Pulse oximetry Systolic blood pressure Diastolic blood pressure Provider Name and Address Organization Details Last Updated DateTime 4 182.88 cm 23.1 kg/m2 88858.5 g 98.5 [degF] 63 /min 96 % 96 % 108 mm[Hg] 65 mm[Hg] Blessing Montelongo MA [facility] 4 14:39:44 Date Recorded Body weight Body temperature Heart rate Oxygen saturation Oxygen saturation in Arterial blood by Pulse oximetry Body mass index (BMI) Body height Systolic blood pressure Diastolic blood pressure Provider Name and Address Organization Details Last Updated DateTime 3 84576.8 9 g 97.9 [degF] 85 /min 96 % 96 % 23.3 kg/m2 182.88 cm 102 mm[Hg] 62 mm[Hg] Brian Ventura MA [facility] 3 10:06:39 Date Recorded Body height Body mass index (BMI) Body weight Body temperature Oxygen saturation Oxygen saturation in Arterial blood by Pulse oximetry Heart rate Systolic blood pressure Diastolic blood pressure Provider Name and Address Organization Details Last Updated DateTime 3 182.88 cm 22.8 kg/m2 78004.2 2 g 97.3 [degF] 98 % 98 % 78 /min 120 mm[Hg] 71 mm[Hg] Greta Lugo MA [facility] 3 10:35:35 Social History Question Answer Notes LastModified by Organizat ion Details LastModified Time Tobacco Smoking Status Never [facility]oker [facility] 14:29:28 Do You Have An Advance Directive? Yes Information n ot available 03/06/2021 Are You Blind Or Do You Have Difficulty Seeing? No Information n ot available 03/06/2021 What Is Your Level Of Caffeine Consumption? Moderate Information not available 12/12/2021 In The 14 Days Before Symptom Onset, Have You Had Close Contact With A Laboratory-confirm ed COVID-19 While That Case Was Ill? No Information n ot available 03/06/2021 In The 14 Days Before Symptom Onset, Have You Had Close Contact With A Person Who Is Under Investigation For COVID-19 While That Person Was Ill? No Information not available 03/06/2021 Have You Been To An Area Known To Be High Risk For COVID-19? No Information not available 03/06/2021 Are You Deaf Or Do You Have Serious Difficulty Hearing? Yes Information not available 03/06/2021 What Type Of Diet Are You Following? REGULAR Information n ot available 03/06/2021 How Intense Was Your Typical Exercise? Moderate (brisk Walking) Information not available 03/06/2021 In The Past 7 Days, How Much Pain Have You Lebo? None Information not available 03/06/2021 In General, Would You Say You Health Is: Excellent Information not available 03/06/2021 How Would You Describe The Condition Of Your Mouth And Teeth- Including False Teeth Or Dentures? Good Information n ot available 03/06/2021 Each Night, How Many Hours Of Sleep Do You Get? 8 Information no t available 03/06/2021 Has Anyone Ever Told You That You Snore? Yes Information not available 03/06/2021 In The Past 7 Days, How Often Have You Lebo Sleepy In The Daytime? Rarely Information not available 03/06/2021 On They Days When You Drank Alcohol, How Often Did You Have 4 Or More Drinks At A Time? Never Information no t available 03/06/2021 # Alcohol Drinks Per Week 0 Information not available 03/06/2021 What Was The Date Of Your Most Recent Tobacco Screening? 12/14/2024 Information not available 12/14/2024 What Is Your Relationship Status? Information not available 03/06/2021 Do You Use Your Seat Belt Or Car Seat Routinely? Yes Information not available 03/06/2021 Do You Have Smoke And Carbon Monoxide Detectors In Your Home? Yes Information not available 03/06/2021 Are You Passively Exposed To Smoke? No Information no t available 03/06/2021 Sex: Unknown Functional Status Question Answer Note LastModified by Organizat ion Details LastModified Time Do you use any illicit or recreational drugs? No Information not available 03/06/2021 What is your level of alcohol consumption? None Information not available 03/06/2021 Are you currently employed? No Information not available 03/06/2021 Are you able to care for yourself? Yes Information n ot available 03/06/2021 What is your exercise level? Moderate Information not available 03/06/2021 Mental Status Question Answer Note LastModified by Organization D etails LastModified Time Do you feel stressed (tense, restless, nervous, or anxious, or unable to sleep at night)? [id number] Information not available 03/06/2021 Family History Relationship Description Onset Age of this Age Resolved Age Notes LastModified by Organization Details LastModified Time Sister Malignant tumor of breast charrisma Not available 2015 12:35:12 Sister Malignant neoplasm of lung [email or web address] Not available 13:39:34 Father Cerebrovascu lar accident charrisma Not available 06/2016 12:35:21 Father Heart disease charrisma Not available 2015 12:35:26 Father Hypertensive disorder charrisma Not available 2015 12:35:34 Mother Hypertensive disorder charrisma Not available 2015 12:35:34 Mother Kidney disease charrisma Not available 2015 12:35:40 Mother Malignant tumor of pancreas ssadlowskima Not available 13:39:47 Medical History Condition Response High Blood Pressure Y High Cholesterol Y Acid Reflux (GERD) Y Immunizations Vaccine Type Date Status Note Provider Ryan bingham and Address Organization Details Recorded Time Influenza, adjuvanted, quadrivalent, PF 1 completed MIKE Soto Attn: [address] [place], [address], [place] [facility] 04/29/2023 09:22:48 COVID-19, mRNA, LNP-S, PF, 30 mcg/0.3 mL dose 1 completed MIKE Soto Attn: [address] [place], [address], [place] [facility] 04/29/2023 09:22:48 COVID-19, mRNA, LNP-S, PF, 30 mcg/0.3 mL dose 1 completed MIKE Soto Attn: [address] [place], [address], [place] [facility] 04/29/2023 09:22:48 Influenza, split virus, quadrivalent, preservative 7 completed Not Available [facility] 08/07/2019 02:33:02 Tdap 8 completed Not Available [facility] 08/07/2019 02:45:24 Influenza, split virus, quadrivalent, preservative 8 completed Not Available [facility] 08/07/2019 02:51:07 Influenza, split virus, quadrivalent, preservative 0 completed Chari Gómez MA null, MD - [facility] 08/26/2019 12:10:01 Tdap 6 completed Tara Ocasio null, MD - [facility] 07/01/2016 10:36:30 Pneumococcal conjugate PCV 13 5 completed MIKE Soto Attn: [address] [place], [address], [facility] 04/29/2023 09:22:48 pneumococcal polysaccharide PPV23 4 completed MIKE Soto Attn: [address] [place], [address], [facility] 04/29/2023 09:22:48 Influenza, split virus, trivalent, preservative 2 completed Not Available [facility] 08/21/2019 02:11:43 Influenza, split virus, trivalent, preservative 3 completed Not Available [facility] 08/21/2019 02:11:43 Influenza, split virus, trivalent, preservative 4 completed Not Available [facility] 08/21/2019 02:11:43 Influenza, split virus, quadrivalent, preservative 5 completed Not Available [facility] 08/21/2019 02:11:43 Influenza, high-dose, trivalent, PF 4 completed Blessing Montelongo MA null, MD - [facility] 04/15/2024 16:16:11 Past Encounters Encounter ID Performer Location Encounter Start Date Encounter Closed Date Diagnosis/Indication Diagnosis SNOMED-CT Code Diagnosis ICD10 Code Diagnosis Note [id number] Chago Fuentes MD [facility] [address] [place] [address] 07/01/2016 12:33:00 07/03/2016 15:22:59 Upper respiratory infection 90889171 J06.9 [id number] Jacklyn Redd MD [facility] [address] [place] [address] 07/12/2016 10:09:57 07/16/2016 11:48:46 Screening for malignant neoplasm of prostate 136155114 Z12.5 Family his tory of malignant neoplasm 657079465 Z80.9 Essential hypertension 94097121 I10 Hyperlipidemia 73416311 E78.5 [id number] Jacklyn Redd MD [facility] [address] [place] [address] 07/23/2016 09:42:12 07/24/2016 11:36:06 Administration of influenza vaccine 09257921 Z23 [id number] Jacklyn Redd MD [facility] [address] [place] [address] 07/25/2017 11:15:42 07/25/2017 15:47:19 Acute sinusitis 92416183 J01.90 [id number] Chago Fuentes MD [facility] [address] [place] [address] 12/08/2017 16:43:28 12/09/2017 10:45:28 Gastroesophageal reflux disease 838718553 K21.9 Administra tion of diphtheria, pertussis, and tetanus vaccine 625353587 Z23 Adult heal th examination 856583647 Z00.00 Pain in thumb 217193032 M79.643 Primary er ectile dysfunction 835402241 N52.9 [id number] Chago Fuentes MD [facility] [address] [place] [address] 12/12/2017 09:04:47 12/16/2017 09:12:47 Benign essential hypertension 8909258 I10 Hyperlipidemia 50017307 E78.5 Adult heal th examination 115139661 Z00.00 Screening for malignant neoplasm of prostate 694525563 Z12.5 [id number] Chago Fuentes MD [facility] [address] [place] [address] 06/22/2018 12:12:32 06/23/2018 11:18:24 Benign essential hypertension 0525224 I10 Gastroesop hageal reflux disease 578274994 K21.9 Administra tion of influenza vaccine 82541789 Z23 Screening for malignant neoplasm of prostate 284411148 Z12.5 Active or passive immunization 893044580 Z23 Sinusitis 29511947 J32.9 Impacted c erumen of bilateral ears 6875708934 049614 H61.23 Use debrox daily for two weeks.Irri gate daily [id number] Jacklyn Redd MD [facility] [address] [place] [address] 09/16/2018 14:10:17 09/17/2018 13:30:34 Lacunar infarction 501316882 I63.81 no significan t sequelae, but one visit to neurology for anticoag recommenda tions vs none to be determined . Bilateral tinnitus 77601 33895 102 H93.13 continued f/u with audiology as discussed Benign par oxysmal positional vertigo 007631898 H81.11 Impacted c erumen of bilateral ears 7102816283 414029 H61.23 Anemia 057975297 D64.9 [id number] Jacklyn Redd MD [facility] [address] [place] [address] 08/26/2019 10:53:41 08/26/2019 12:28:08 Adult health examination 582124319 Z00.00 Health Risk Assessment collected and reviewed Hyperlipid emia screening 499273219 Z13.220 Screening for malignant neoplasm of prostate 205073176 Z12.5 Family his tory of malignant neoplasm of pancreas 391139784 Z80.0 per patient request sed rate to be added. Administra tion of influenza vaccine 08963621 Z23 [id number] Jacklyn Redd MD [facility] [address] [place] [address] 02/03/2020 11:07:40 02/03/2020 13:38:27 Allergic contact dermatitis 014191792 L23.9 Lacunar infarction 90853 8000 I63.81 [id number] Jacklyn Redd MD [facility] [address] [place] [address] 02/14/2020 14:50:58 02/14/2020 16:00:50 Anemia 509418090 D64.9 Bleeding i nternal hemorrhoids 41208078 K64.8 keep stool very soft, dietary measures and miralax discussed, sitz baths and witch wing pads prn. Prostate s pecific antigen above reference range 768969929 R97.20 saw urology and PSA has dropped Abnormal weight loss 267 138131 R63.4 reporting 10 pounds since last in the office, will see him in the office in 3 weeks when due for cbc repeat [id number] Jacklyn Redd MD [facility] [address] [place] [address] 03/06/2020 14:27:33 03/06/2020 17:24:35 Anemia 803267135 D64.9 Unintentio nal weight loss 429188264 R63.4 Family his tory of malignant neoplasm of pancreas 138003892 Z80.0 [id number] Jacklyn Redd MD [facility] [address] [place] [address] 03/29/2020 13:05:31 03/30/2020 11:45:05 Low back pain 231677074 M54.5 likely muscle bruise from blunt trauma. If he notices ANY blood or dark urine, he will come in for a urine dip. If no better let us know. No golf until pain resolved [id number] Jacklyn Redd MD [facility] [address] [place] [address] 03/06/2021 10:18:52 03/06/2021 15:08:55 Gastroesophageal reflux disease 878258530 K21.9 Adult heal th examination 015196928 Z00.00 Health Risk Assessment collected and reviewed Benign ess ential hypertension 6069752 I10 stable today Screening for malignant neoplasm of prostate 578880900 Z12.5 sees urology yearly and having every 6 months PSAs and last 2 were in the 3s. No symptoms Family his tory of malignant neoplasm of pancreas 549015195 Z80.0 Screening for malignant neoplasm of colon 574000029 Z12.11 discussed cologaurd, not interested currently, had hemoccult last year and was negative Pain of bi lateral hip joints 6477716347 5162865 M25.551 M25.552 will call when ready for referral to ortho. Not yet ready [id number] MIKE Soto [facility] [address] [place] [address] 12/12/2021 10:37:36 12/12/2021 15:13:06 COVID-19 564777115 U07.1 Lots of rest and fluids, tylenol or ibuprofen for headaches or body aches. Monitor for return of fever, extreme weakness or SOB. Call if no better or worsening symptoms. Isolation rules reviewed. [id number] Jacklyn Redd MD [facility] [address] [place] [address] 12/18/2021 12:31:14 12/18/2021 17:07:01 COVID-19 [id number] U07.1 Nausea 387509003 R11.0 [id number] Jacklyn Redd MD [facility] [address] [place] [address] 03/19/2022 10:40:30 03/20/2022 13:53:52 Adult health examination 256630393 Z00.00 Health Risk Assessment collected and reviewed Gastroesop hageal reflux disease 226425201 K21.9 only take omeprazole as needed, like with late large meals and prn rarely Benign ess ential hypertension 2759458 I10 stable today History of anemia 549967 002 Z86.2 Family his tory of malignant neoplasm of pancreas 833409057 Z80.0 requests yearly CEAs for FH GI cancers. Screening for malignant neoplasm of prostate 186731936 Z12.5 sees urology yearly and having every 6 months PSAs and last 2 were in the 3s and just another one Juan Manuel and 3.6. No symptoms Administra tion of viral vaccine 79798187 Z23 would like RX for shingles vaccine [id number] Rene Mae MD [facility] [address] [place] [address] 04/29/2023 09:40:34 04/30/2023 14:41:53 Adult health examination 668982051 Z00.00 Health Risk Assessment collected and reviewed Administra tion of influenza vaccine 77338130 Z23 will get at [facility] when not coughing. Administra tion of pneumococcal vaccine 65255273 Z23 will be due next year 2023 Anemia 656357259 D64.9 Screening for malignant neoplasm of prostate 083857298 Z12.5 sees urology PSA 3.6, will get urology records for our chart. Hyperlipid emia screening 050634751 Z13.220 Family his tory of malignant neoplasm of pancreas 449763082 Z80.0 requests yearly CEAs and sed rate for FH GI cancers. Postviral cough 26187968 4 R05.3 declines liquid cough medication . Will give codeine tablet. Normal lung exam, COVID 2 weeks ago. Dyspnea on exertion 6084 5006 R06.09 when at the [place] of the [place] mowing the grass, which is out of the norm for him, no CP or nausea. Will refer to cardiology for stress testing, has never had one in the past. [id number] Rene Mae MD [facility] [address] [facility] [address] [place] [address] 05/29/2023 10:20:52 05/29/2023 15:45:00 Gastroesophageal reflux disease 189784170 K21.9 only take omeprazole as needed, like with late large meals and prn rarely Right lowe r zone pneumonia 392996865 J18.1 Was minimal finding, possible atelectasi s only and symptom free with normal exam, no repeat CXR needed. External hemorrhoids 239 66435 K64.4 only aggravated with constipati on and/or diarrhea. Unintentio nal weight loss 826870135 R63.4 CT scan abd looks normal 2019 with initial work up. Labs reviewed all normal. Boost for protein suggested. Anemia 442582253 D64.9 with much fatigue post pneumonia and COVID, will give B12 injection, won't hurt. Start Centrum Silver daily with his lack of fruits and veggies in his diet. Will call if not feeling back to his normal energy level or if weight loss continues [id number] Verona Turner MD [facility] [address] [place] [address] 04/15/2024 14:27:30 04/15/2024 16:28:43 Gastroesophageal reflux disease 887701545 K21.9 only take omeprazole as needed, like with late large meals and prn rarely Adult heal th examination 754205184 Z00.00 Health Risk Assessment collected and reviewed Benign ess ential hypertension 5183643 I10 stable today, has a huge stock pile of metoprolol and doesn't need any. Screening for malignant neoplasm of prostate 353654807 Z12.5 sees urology PSA 3.3, will get urology records, Dr. Arnold at [place] Pre-surger y evaluation 933354996 Z01.[address] Senior last June was fine. Hyperlipid emia screening 574485889 Z13.220 Ate today, cholestero l is unbelievab ly low. Administra tion of influenza vaccine 86998348 Z23 Family his tory of malignant neoplasm of pancreas 678337457 Z80.0 requests yearly CEAs and sed rate for FH GI cancers. [id number] Verona Turner MD [facility] [address] [place] [address] 12/14/2024 09:40:18 12/15/2024 10:29:00 Diarrhea 32516793 R19.7 Black feces 314206617 K9 2.1 intermitte ntly with history of anemia, will check FIIT test and labs, if anemia or iron deficiency has worsened will refer for EGD and colonoscop y. Will start daily metamucil and probiotic, avoid gas and diarrhea producing foods. Health Concerns Section Related Observation LastModified by Organization Detai ls LastModified Time None Recorded Concern Status LastModified by Organization Details LastModified Time None Recorded Advance Directives Directive Y: Payers Encounter Date Sequence Insurance Name Policy Number Policy Mckeon Covered Member ID Mckeon Member ID Guarantor Name 03/19/2022 1 [facility] (MEDICARE REPLACEMENT/A DVANTAGE - PPO) [id number] Ponce Gibson [id number] Ponce Gibson 04/29/2023 1 [facility] (MEDICARE REPLACEMENT/A DVANTAGE - PPO) [id number] Ponce Gibson [id number] Ponce Gibson 05/29/2023 1 [facility] (MEDICARE REPLACEMENT/A DVANTAGE - PPO) [id number] Ponce Gibson [id number] Ponce Gibson 04/15/2024 1 [facility] (MEDICARE REPLACEMENT/A DVANTAGE - PPO) [id number] Ponce Gibson [id number] Ponce Gibson 12/14/2024 1 [facility] (MEDICARE REPLACEMENT/A DVANTAGE - PPO) [id number] Ponce Gibson [id number] Ponce Gibson Notes Date Note Type Note Provider Name and Address Organization Details Recorded Time 03/19/2022 text/html MAW 2Reported bypatient.Diet and Nutrition:healthy diet Fracture Risk:no history of fractures; no sudden unexplained fractures Concentration and Memory:no decreased concentrating ability; no memory lapses or loss; does not forget words Speech/Motor difficulties:no speech difficulties; no difficulty expressing formulated concepts; no difficulty with fine manipulative tasks; no difficulty writing/copying; no slowed reaction time; does not knock things over when trying to pick them up Hearing:no loss of hearing Vision:no vision problems Activities of Daily Living:able to bathe with limited or no assistance; able to contol urination and bowels; able to dress with limited or no assistance; able to feed self with limited or no assistance; able to get out of chair or bed with limited or no assistance; able to groom with limited or no assistance; able to toilet with limited or no assistance Instrumental Activities of Daily Living:able to do house work with limited or no assistance; able to grocery shop with limited or no assistance; able to manage medications with limited or no assistance; able to manage money with limited or no assistance; able to prepare meals with limited or no assistance; able to use the phone with limited or no assistance Falls Risk Assessment:no frequent falls while walking; no fall in the past year; no fall since last visit; no dizziness/vertigo Home Safety:no unsafe gretel hazzards; no unsafe stairs; working smoke/CO detectors; practicing 'safer sex'; no fire arms; has hand bars in the bathroom/shower; good lighting in the home MIKE Soto Attn: Accounting,[address] [place], [address], [facility] 03/20/2022 22:12:43 04/29/2023 text/html MAKeegan 2Reported bypatient.Diet and Nutrition:healthy diet Fracture Risk:no history of fractures; no sudden unexplained fractures Concentration and Memory:no decreased concentrating ability; no memory lapses or loss; does not forget words Speech/Motor difficulties:no speech difficulties; no difficulty expressing formulated concepts; no difficulty with fine manipulative tasks; no difficulty writing/copying; no slowed reaction time; does not knock things over when trying to pick them up Hearing:pt says his hearing is going away a little, he has hearing aids but does not wear them Vision:no vision problems Activities of Daily Living:able to bathe with limited or no assistance; able to contol urination and bowels; able to dress with limited or no assistance; able to feed self with limited or no assistance; able to get out of chair or bed with limited or no assistance; able to groom with limited or no assistance; able to toilet with limited or no assistance Instrumental Activities of Daily Living:able to do house work with limited or no assistance; able to grocery shop with limited or no assistance; able to manage medications with limited or no assistance; able to manage money with limited or no assistance; able to prepare meals with limited or no assistance; able to use the phone with limited or no assistance Falls Risk Assessment:no frequent falls while walking; no fall in the past year; no fall since last visit; no dizziness/vertigo Home Safety:no unsafe gretel hazzards; no unsafe stairs; working smoke/CO detectors; practicing 'safer sex'; no fire arms; has hand bars in the bathroom/shower; good lighting in the homeNotes:Tested Positive for COVID 20 days ago. No fever or chills, just a bad head cold symptoms. Was fine for a week and just recently 3 days ago the cough started. Dry cough. Am sputum only. NO ST, just a little dry. No wheezing, no fever. Worse at night. But once asleep he is ok. Not typical to get seasonal allergies. Just had cataract surgery 04/26 and wasn't coughing then. MIKE Soto Attn: Accounting,[address] [place], [address], [facility] 04/29/2023 14:01:19 05/29/2023 text/html FatigueReported bypatient.Quality:cont inuous Severity:normal sleep patterns;change in exercise habits(a little);changes in normal activities(a little) Duration:constant Timing:actual date: (pt said that after he had covid in mar.) Modifying Factors:no new stressors in life;not taking vitamins Associated Symptoms:no drug/alcohol withdrawal; no depression; no anxiety; no sleep disturbances;snoring;r ecent change in weight(pt wants to talk about this)Notes:Doesn't eat a lot of fruits or veggies, wondering about vitamins. pt said that his cough is gone. Went to ER for cough for a month and new diarrhea and nausea and dehydration. Small RLL pneumonia seen, IV fluids given and doxy as OP given. Feeling better but just exhausted, very low energy. Hit a bucket of balls yesterday and it was all he could do. COVID 6 weeks ago, f/b a week of feeling better, followed by a month long cough and then this pneumonia diagnosis. MIKE Soto Attn: Accounting,[address] [facility], [place], [address], [facility] 05/29/2023 11:27:33 04/15/2024 text/html Generic HPI TemplateReported bypatient.Notes:needs updated H&P for podiatric surgery with Dr. gelacio Mack at [facility]. Saw cardiology last year 07/12 and had stress test at [facility] with Dr. Senior.MARY 2Reported bypatient.Diet and Nutrition:healthy diet Fracture Risk:no history of fractures; no sudden unexplained fractures Concentration and Memory:no decreased concentrating ability; no memory lapses or loss; does not forget words Speech/Motor difficulties:no speech difficulties; no difficulty expressing formulated concepts; no difficulty with fine manipulative tasks; no difficulty writing/copying; no slowed reaction time; does not knock things over when trying to pick them up Hearing:no loss of hearing Vision:no vision problems Activities of Daily Living:able to bathe with limited or no assistance; able to contol urination and bowels; able to dress with limited or no assistance; able to feed self with limited or no assistance; able to get out of chair or bed with limited or no assistance; able to groom with limited or no assistance; able to toilet with limited or no assistance Instrumental Activities of Daily Living:able to do house work with limited or no assistance; able to grocery shop with limited or no assistance; able to manage medications with limited or no assistance; able to manage money with limited or no assistance; able to prepare meals with limited or no assistance; able to use the phone with limited or no assistance Falls Risk Assessment:no frequent falls while walking; no fall in the past year; no fall since last visit; no dizziness/vertigo Home Safety:no unsafe gretel hazzards; no unsafe stairs; working smoke/CO detectors; practicing 'safer sex'; no fire arms; has hand bars in the bathroom/shower; good lighting in the home MIKE Soto Attn: Accounting,[address] [place], [address], [place] [facility] 04/15/2024 15:30:21 12/14/2024 text/html DiarrheaReported bypatient.Quality:inte rmittent;soft;increase d quantity Severity:moderate Duration:present for 2-4 weeks Onset/Timin-3 times a day;worse in the morning;worse in the afternoon Context:no one else with similar symptoms; no recent camping; no recent picnic; no possible food sources; no recent travel; no well water; no family history of colon polyps or cancer; pt said that the diarrhea happens once every month pt said that he does night a regular bowel movement but every three days and then he said that he has loose stools for about a couple days Alleviating Factors:OTC medication Aggravating Factors:eating(sometim es) Associated Symptoms:no abdominal pain; no excess gas; no fever; no rash; no joint pain; no weight loss; no nausea; no vomiting; no heartburn; no blood in stool; no nutrient deficiency; no fecal incontinence;black or tarry stools(maybe);weakness (sometimes)Notes:colon oscopy 01/08/16 normal, repeat in 10 years.No weight loss.No fevers, no watery stool. Has a first formed stool about every 2-3 days, followed by several soft stools. No abd cramps or pain at all. Episodes of black stool at the end of his bout. No pepto bismol. Does take an antidiarrhea pill on occasion. MIKE Soto Attn: Accounting,[address] [place], [address], [facility] 12/14/2024 16:38:17
--- OUTSIDE RECORDS SUMMARY | 2024-12-21 13:28 | XMS_ITS | Continuity of Care Document ---
Author Name [facility] Organization [facility] Care Team Providers Care Health And Safety Representative Name Role Phone [facility] Unavailable Unavailable Encounters Combined list of: 1) Encounters from Department of Veterans Affairs facilities going backup to the last 18 months, not all VA inpatient encounters are included; 2) Encounters from the Department of [employer] facilities going backup to 280 months. Location Location Details Encounter Type Encounter Number Reason For Visit Attending Provider ADM Date DC Date Status Disposition Source [facility] Outpatient Encounter [id number] 08/14 [facility]
--- NOTE | 2024-12-21 13:58 | ED_ITS ---
HPI - General Adult General Chief complaint: Skin/Abscess/Foreign Body Stated complaint: fish hook to left ear Time Seen by Provider: 12/21/24 13:41 History of Present Illness HPI narrative: 79-year-old male presents emergency department for evaluation for fishhook can the helix of the left ear. Related Data Home Medications ?Medication ?Instructions ?Recorded ?Confirmed ?Last Taken ?Type aspirin 81 mg tablet,delayed 81 mg PO DAILY 04/12/21 05/08/21 05/06/21 History release metoprolol succinate 25 mg 25 mg PO DAILY 04/12/21 05/08/21 05/06/21 History tablet,extended release 24 hr omeprazole 40 mg capsule,delayed 40 mg PO DAILY 04/12/21 05/08/21 05/06/21 History release Allergies Allergy/AdvReac Type Severity Reaction Status Date / Time No Known Allergies Allergy Verified 12/21/24 13:30 Review of Systems Review of Systems: All systems reviewed & are unremarkable except as noted in HPI and below PMFSH Past Medical History Medical History GERD (gastroesophageal reflux disease) Hypertension Family History Family History Other Family history of malignant neoplasm Hypertension Social History Social History Smoking status: Never smoker Alcohol intake: never Substance use: never Living arrangements: with family Spiritual care concerns: No Exam Narrative: APPEARANCE: Well appearing, no pain, no distress, well-nourished. HEAD: normocephalic, atraumatic. EYES: PERRLA/EOMI, conjunctivae clear. NOSE: Normal no drainage EARS: [place] and helix of the left ear Course Vital Signs Vital signs: Vital Signs Temperature 98.2 F 12/21/24 13:28 Pulse Rate 80 12/21/24 13:28 Respiratory Rate 16 12/21/24 13:28 Blood Pressure 132/68 12/21/24 13:28 Pulse Oximetry 96 12/21/24 13:28 Oxygen Delivery Room Air 12/21/24 13:28 Temperature 98.2 F 12/21/24 13:28 Pulse Rate 80 12/21/24 13:28 Respiratory Rate 16 12/21/24 13:28 Blood Pressure 132/68 12/21/24 13:28 Pulse Oximetry 96 12/21/24 13:28 Oxygen Delivery Room Air 12/21/24 13:28 Procedures FB Removal Ear Foreign Body #1: Foreign Body Removal Date: 12/21/24 Foreign Body Removal Time: 14:00 Location: ear canal (L) (left ear helix) Foreign Body Suspected: other (fish hook) Foreign Body Removed: yes Patient Tolerated Procedure: well and no complications Complications: none Medical Decision Making MDM Narrative Medical decision making narrative: 79-year-old male present to the emergency department for evaluation for a fishhook in the left ear. Left ear helix was injected with lidocaine and face show was removed. Patient was started on antibiotics and patient's tetanus was updated. Patient was comfortable with plan for discharge and close follow-up. Differential Diagnosis Differential Diagnosis: Foreign body, ear lacertation Vital Signs Vital Signs: Vital Signs Temperature 98.2 F 12/21/24 13:28 Pulse Rate 80 12/21/24 13:28 Respiratory Rate 16 12/21/24 13:28 Blood Pressure 132/68 12/21/24 13:28 Pulse Oximetry 96 12/21/24 13:28 Oxygen Delivery Room Air 12/21/24 13:28 Temperature 98.2 F 12/21/24 13:28 Pulse Rate 80 12/21/24 13:28 Respiratory Rate 16 12/21/24 13:28 Blood Pressure 132/68 12/21/24 13:28 Pulse Oximetry 96 12/21/24 13:28 Oxygen Delivery Room Air 12/21/24 13:28 Discharge Plan Discharge Clinical Impression: Fish hook in ear region Patient Disposition: Home Condition: Stable Instructions: Antibiotic Form Additional Instructions: Wound care as directed. Antibiotics as directed. Have close follow-up with your primary care physician for a wound check. Patient Language: Kosovan Prescriptions: New cephalexin 500 mg capsule 500 mg PO Q12H 7 Days Qty: 14 0RF No Action metoprolol succinate 25 mg tablet extended release 24 hr 25 mg PO DAILY omeprazole 40 mg capsule,delayed release(DR/EC) 40 mg PO DAILY aspirin 81 mg tablet,delayed release (DR/EC) 81 mg PO DAILY ondansetron 4 mg tablet,disintegrating 4 mg PO DAILY PRN (Reason: nausea and vomiting) 5 Days Qty: 14 0RF doxycycline hyclate 100 mg tablet 100 mg PO BID 7 Days Qty: 14 0RF Follow-up/Referrals: Parent,MIKE Nava [Primary Care Provider] -
[2024-12-21] MEDS: TETANUS,DIPHTHERIA,AC PERTUSSIS ADULT (0.5 ML) BOOSTRIX IM (14:03)
[2024-12-21] MEDS: LIDOCAINE 1% LOCAL INJ 10 ML VIAL (14:04)
[2024-12-21] MEDS: CEPHALEXIN 500 MG CAPSULE PO (14:04)
--- OUTSIDE RECORDS SUMMARY | 2024-12-21 14:21 | XMS_ITS | Continuity of Care Document ---
Author Name [facility] Organization [facility] Care Team Providers Care Handyperson Name Role Phone [facility] Unavailable Unavailable Encounters Combined list of: 1) Encounters from Department of Veterans Affairs facilities going backup to the last 18 months, not all VA inpatient encounters are included; 2) Encounters from the Department of [employer] facilities going backup to 280 months. Location Location Details Encounter Type Encounter Number Reason For Visit Attending Provider ADM Date DC Date Status Disposition Source [facility] Outpatient Encounter [id number] 08/14 [facility]
== END 2024-12-21 14:24 | disposition home or self-care (01) ==
LOC: ANHED 14:18
PROVIDERS: Emergency Provider Emergency Medicine; PCP Physician Assistant
DX: S01.342A Puncture wound with foreign body of left ear, initial encounter (principal); W45.8XXA Other foreign body or object entering through skin, initial encounter; Z23 Encounter for immunization
CPT/HCPCS: 90715; 99283; A9270; J2003

== ENCOUNTER 2025-06-13 07:56 | Outpatient (CLI) | payer MEDICARE, SELFPAY ==
--- NOTE | ~2025-06-13 | US_ITS ---
EXAMINATION: US aorta [facility] scrn, 06/13/2025 8:28 DEPUTY PROGRAM MANAGER HISTORY: Screening for AAA Comparison: None Technique: [place]a-scale and color Doppler images were obtained. Findings: Bowel gas limits evaluation however there is no aneurysm identified. The visualized proximal iliac arteries are unremarkable. No significant plaque identified. IMPRESSION: No aneurysm is identified Reviewed, dictated and finalized at location P. TY PROGRAM MANAGER IMPRESSION: No aneurysm is identified
--- OUTSIDE RECORDS SUMMARY | 2025-06-13 08:05 | XMS_ITS | Continuity of Care Document ---
Author Organization [facility] Address [address] [place] [address] Assessment No assessment recorded. Plan of Treatment Reminders Order Date Submit Date Provider Last Modified By Organization Details Last Modified Time Details Appointments MEDICARE WELLNESS VISIT 2025 10:00A MIKE Pandya Not available Not available Not available Lab carcinoem bryonic Ag, quant, serum or plasma 2024 025 [employer] [facility], [address], [place], [address], 05/26/2025 02:15:43 cancer Ag 19-9, serum or plasma 2024 025 [employer] [facility], [address], [place], [address], 05/26/2025 02:15:44 CBC w/ auto diff 2024 025 [employer] [facility], [address], [place], [address], 05/26/2025 02:15:43 CMP, serum or plasma 2024 025 [employer] [address], [place], [address], 05/26/2025 02:15:42 lipid panel, serum 2024 025 [employer] [facility], [address], [place], [address], 05/26/2025 02:15:42 Referral gastroent erologist referral 2024 [facility], [address], [address], [place], [address], 05/31/2025 16:11:44 Procedures cerumen removal (PROC) 2024 [facility] Not available 05/24/2025 13:29:35 Surgeries None recorded. Imaging US, screening for abdominal aortic aneurysm 2024 [facility] (Im[facility]), [address], [place], [address], 05/24/2025 16:05:49 Medication Orders ondansetr on HCl 4 mg tablet 2024 CARLOS [facility], [address], [address], [place], [address], 05/24/2025 12:05:38 Patient TargetsNo targets recorded. 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 Referral for Gastroesophageal reflux disease Referring Physician: Guadalupe Ware, Family Medicine, Encounter Date: 05/24/2025 Results Created Date Observation Date Name Description Value Unit Range Abnormal Flag Note LastModifiedBy Organization Detail LastModifiedTime 05/24/2005/26/2025 LIPID PANEL , STAND KIMBERLYN cholesterol, total 159 mg/dL <200 normal Not Available [facility] [address] [place] [address] [place], [address], 05/26/2025 02:15:42 05/24/2005/26/2025 LIPID PANEL , STAND KIMBERLYN HDL cholesterol 58 mg/dL > or = 40 normal Not Available [facility] [address] [place], [address], 05/26/2025 02:15:42 05/24/20 25 05/26/2025 LIPID PANEL , STAND KIMBERLYN triglyceride s 67 mg/dL <150 normal Not Available [facility] [address] [place] [address] [place], [address], 05/26/2025 02:15:42 05/24/2005/26/2025 LIPID PANEL , STAND KIMBERLYN LDL-choleste rol 86 mg/dL _(zina c) normal Refer ence range : <100 Catie able range <100 mg/dL for prima ry preve ntion ; <70 mg/dL for patie nts with CHD or diabe tic patie nts with > or = 2 CHD risk facto rs. LDL-C is now calcu lated using the Magaly ross-Hop kins daryl polanco n, which is a valid ated novel chilo rodriguez r accur acy than the Fried gene equat ion in the estim ation of LDL-C . Magaly ross SS et al. BRIT. 2013; 310(1 9): 2061- 2068 (http ://ed ucati on.Qu Zuleika saleh Code Scoutss. com/f aq/FA Q164) Not Available [facility] [address] [place], [address], 05/26/2025 02:15:42 05/24/2005/26/2025 LIPID PANEL , STAND KIMBERLYN chol/HDLC ratio 2.7 (calc ) <5.0 normal Not Available [facility] [address] [place], [address], 05/26/2025 02:15:42 05/24/20 25 05/26/2025 LIPID PANEL , STAND KIMBERLYN non HDL cholesterol 101 mg/dL _(zina c) <130 normal For patie nts with diabe lazaro plus 1 major ASCVD risk facto r, treat ing to a non-H DL-C goal of <100 mg/dL (LDL- C of <70 mg/dL ) is mere [facility] optio n. Not Available [address] [place], [address], 05/26/2025 02:15:42 05/24/20 25 05/26/2025 COMPR EHENS MATTHEW METAB OLIC PANEL glucose 86 mg/dL 65-99 normal Fasti ng refer ence inter mike Not Available [address] [place], [address], 05/26/2025 02:15:42 05/24/20 25 05/26/2025 COMPR EHENS MATTHEW METAB OLIC PANEL urea nitrogen (BUN) 21 mg/dL 7-25 normal Not Available [address] [place], [address], 05/26/2025 02:15:42 05/24/20 25 05/26/2025 COMPR EHENS MATTHEW METAB OLIC PANEL creatinine 0.88 mg/dL 0.70-1 .28 normal Not Available [address], [address], 05/26/2025 02:15:42 05/24/20 25 05/26/2025 COMPR EHENS MATTHEW METAB OLIC PANEL eGFR 88 mL/mi n/1.7 3m2 > or = 60 normal Not Available [address], [address], 05/26/2025 02:15:42 05/24/20 25 05/26/2025 COMPR EHENS MATTHEW METAB OLIC PANEL BUN/creatini ne ratio SEE NOTE: (calc ) 6-22 Not Repor carolyn: BUN and Creat inine are withi n refer ence range . Not Available [facility] [place] [address] [place], [address], 05/26/2025 02:15:42 05/24/2005/26/2025 COMPR EHENS MATTHEW METAB OLIC PANEL sodium 139 mmol/ L 135-14 6 normal Not Available [address] [place], [address], 05/26/2025 02:15:42 05/24/2005/26/2025 COMPR EHENS MATTHEW METAB OLIC PANEL potassium 4.3 mmol/ L 3.5-5. 3 normal Not Available [address], [address], 05/26/2025 02:15:42 05/24/2005/26/2025 COMPR EHENS MATTHEW METAB OLIC PANEL chloride 106 mmol/ L 98-110 normal Not Available [address] [place], [address], 05/26/2025 02:15:42 05/24/20 25 05/26/2025 COMPR EHENS MATTHEW METAB OLIC PANEL carbon dioxide 24 mmol/ L 20-32 normal Not Available [address], [address], 05/26/2025 02:15:42 05/24/20 25 05/26/2025 COMPR EHENS MATTHEW METAB OLIC PANEL calcium 9.1 mg/dL 8.6-10 .3 normal Not Available [address], [address], 05/26/2025 02:15:42 05/24/2005/26/2025 COMPR EHENS MATTHEW METAB OLIC PANEL protein, total 6.4 g/dL 6.1-8. 1 normal Not Available [address], [address], 05/26/2025 02:15:42 05/24/20 25 05/26/2025 COMPR EHENS MATTHEW METAB OLIC PANEL albumin 4.3 g/dL 3.6-5. 1 normal Not Available [address], [address], 05/26/2025 02:15:42 05/24/20 25 05/26/2025 COMPR EHENS MATTHEW METAB OLIC PANEL globulin 2.1 g/dL_ (calc ) 1.9-3. 7 normal Not Available [address], [address], 05/26/2025 02:15:42 05/24/2005/26/2025 COMPR EHENS MATTHEW METAB OLIC PANEL albumin/glob ulin ratio 2.0 (calc ) 1.0-2. 5 normal Not Available [address], [address], 05/26/2025 02:15:42 05/24/20 25 05/26/2025 COMPR EHENS MATTHEW METAB OLIC PANEL bilirubin, total 1.6 mg/dL 0.2-1. 2 high Not Available [address], [address], 05/26/2025 02:15:42 05/24/20 25 05/26/2025 COMPR EHENS MATTHEW METAB OLIC PANEL alkaline phosphatase 63 U/L 35-144 normal Not Available [address], [address], 05/26/2025 02:15:42 05/24/20 25 05/26/2025 COMPR EHENS MATTHEW METAB OLIC PANEL AST 13 U/L 10-35 normal Not Available [address], [address], 05/26/2025 02:15:42 05/24/20 25 05/26/2025 COMPR EHENS MATTHEW METAB OLIC PANEL ALT 8 U/L 9-46 low Not Available [address], [address], 05/26/2025 02:15:42 05/24/2005/26/2025 CBC (INCL UDES DIFF/ PLT) white blood cell count 6.8 thous and/u L 3.8-10 .8 normal Not Available [address], [address], 05/26/2025 02:15:43 05/24/2005/26/2025 CBC (INCL UDES DIFF/ PLT) red blood cell count 4.09 killian on/uL 4.20-5 .80 low Not Available [address], [address], 05/26/2025 02:15:43 05/24/2005/26/2025 CBC (INCL UDES DIFF/ PLT) hemoglobin 13.1 g/dL 13.2-1 7.1 low Not Available [address], [address], 05/26/2025 02:15:43 05/24/2005/26/2025 CBC (INCL UDES DIFF/ PLT) hematocrit 39.3 % 38.5-5 0.0 normal Not Available [address], [address], 05/26/2025 02:15:43 05/24/2005/26/2025 CBC (INCL UDES DIFF/ PLT) MCV 96.1 fL 80.0-1 00.0 normal Not Available [address], [address], 05/26/2025 02:15:43 05/24/2005/26/2025 CBC (INCL UDES DIFF/ PLT) MCH 32.0 pg 27.0-3 3.0 normal Not Available [address], [address], 05/26/2025 02:15:43 05/24/2005/26/2025 CBC (INCL UDES DIFF/ PLT) MCHC 33.3 g/dL 32.0-3 6.0 normal For adult s, [...] nt's clini zina condi tion. Not Available [facility] [address], [address], 05/26/2025 02:15:43 05/24/2005/26/2025 CBC (INCL UDES DIFF/ PLT) RDW 13.4 % 11.0-1 5.0 normal Not Available [facility] [address], [address], 05/26/2025 02:15:43 05/24/2005/26/2025 CBC (INCL UDES DIFF/ PLT) platelet count 312 thous and/u L 140-40 0 normal Not Available [address], [address], 05/26/2025 02:15:43 05/24/2005/26/2025 CBC (INCL UDES DIFF/ PLT) MPV 9.6 fL 7.5-12 .5 normal Not Available [facility] [address], [address], 05/26/2025 02:15:43 05/24/2005/26/2025 CBC (INCL UDES DIFF/ PLT) absolute neutrophils 4576 cells /uL 1500-7 800 normal Not Available [facility] [address], [address], 05/26/2025 02:15:43 05/24/2005/26/2025 CBC (INCL UDES DIFF/ PLT) absolute lymphocytes 1408 cells /uL 850-39 00 normal Not Available [address], [address], 05/26/2025 02:15:43 05/24/20 25 05/26/2025 CBC (INCL UDES DIFF/ PLT) absolute monocytes 660 cells /uL 200-95 0 normal Not Available [address], [address], 05/26/2025 02:15:43 05/24/2005/26/2025 CBC (INCL UDES DIFF/ PLT) absolute eosinophils 109 cells /uL 15-500 normal Not Available [address], [address], 05/26/2025 02:15:43 05/24/2005/26/2025 CBC (INCL UDES DIFF/ PLT) absolute basophils 48 cells /uL 0-200 normal Not Available [address], [address], 05/26/2025 02:15:43 05/24/2005/26/2025 CBC (INCL UDES DIFF/ PLT) neutrophils 67.3 % normal Not Available [address], [address], 05/26/2025 02:15:43 05/24/20 25 05/26/2025 CBC (INCL UDES DIFF/ PLT) lymphocytes 20.7 % normal Not Available [address], [address], 05/26/2025 02:15:43 05/24/20 25 05/26/2025 CBC (INCL UDES DIFF/ PLT) monocytes 9.7 % normal Not Available [address], [address], 05/26/2025 02:15:43 05/24/20 05/26/2025 CBC (INCL UDES DIFF/ PLT) eosinophils 1.6 % normal Not Available [address], [address], 05/26/2025 02:15:43 05/24/2005/26/2025 CBC (INCL UDES DIFF/ PLT) basophils 0.7 % normal Not Available [address], [address], 05/26/2025 02:15:43 05/24/2005/26/2025 CEA cea <2.0 NG/mL see note: normal [...] not be inter prete d as absol ambler evide nce of the prese nce or absen ce of disea se. Not Available [address], [address], 05/26/2025 02:15:43 05/24/2005/26/2025 CA 19-9 Ca 19-9 35 U/mL <34 high This test was perfo rmed using the Sieme ns chemi lumin escen t metho d. Value s obtai rosibel from diffe rent assay metho ds canno t be used inter jackson eably . CA 19-9 level s, regar dless of value , shoul d not be inter prete d as absol ambler evide nce of the prese nce or absen ce of disea se. Not Available [address], [address], 05/26/2025 02:15:43 Result Notes None recorded. Problems Name Problem SNOMED Code Status Onset Date Resolution Date Notes Provider Name and Address Organization Details Recorded Time Hyperlip idemia 61345223 Completed 03/06/2021 MIKE Soto Attn: Accounting ,[address] [facility], [place], [address] , [facility] 1 11:24:45 Gastroes ophageal reflux disease 402464320 Active Tara Harrisma null, [place] - [facility] 6 10:34:12 Conducti ve hearing loss 61066520 Active Tara [place] [facility] 6 10:34:30 Impotenc e Active Tara [place]ma null[place] - [facility] 6 10:34:40 Essentia l hyperten eleanor 82879216 Completed 201108/26/2019 Location : None;Sev erity: Moderate ;Progres s: Stable;A dded By: Karen Milton;Billy d to Current Problems : YES MIKE Soto Attn: Accounting ,[address] [facility], [place], [address] , [facility] 0 11:30:41 Benign essentia l hyperten eleanor 2468355 Completed 201106/23/2012 Location : None;Sev erity: Moderate ;Progres s: Stable;A dded By: Marycruz Reich i;Yusuf dd to Current Problems : NO Not Available [facility] 7 07:58:50 Neoplasm of bone 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 Completed 201203/29/2013 Location : None;Sev erity: Moderate ;Progres s: Stable;A dded By: Ashanti Wagoner;Add to Current Problems : NO Not Available [facility] 7 07:58:49 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 Location : None;Sev erity: Moderate ;Progres s: Stable;A dded By: Lazara Fuentes;Add to Current Problems : NO Not Available [facility] 7 07:58:49 Senile hyperker atosis 800095317 Completed 201209/16/2018 Location : None;Sev erity: Moderate ;Progres s: Stable;A dded By: Brooke Oviedo;Add to Current Problems : NO MIKE Soto Attn: Accounting ,[address] [facility], [place], [address] , [facility] 9 14:54:17 Closed fracture of rib 00441079 Completed 201308/26/2019 Location : None;Sev erity: Moderate ;Progres s: Stable;A dded By: Patrick Kovacs;Yusuf dd to Current Problems : NO MIKE Soto Attn: Accounting ,[address] [facility], [place], [address] , [facility] 0 11:30:34 Screenin mikel bingham Completed 201409/30/2014 Location : None;Sev erity: Moderate ;Progres s: Stable;A dded By: Lazara Fuentes;Add to Current Problems : YES Not Available [facility] 7 07:58:49 Psychose xual dysfunct ion associat ed with inhibite d libido 728183382 Completed 201408/26/2019 Location : None;Sev erity: Moderate ;Progres s: Stable;A dded By: Lazara Fuentes;Add to Current Problems : YES MIKE Soto Attn: Accounting ,[address] [place], [address] , [facility] 0 11:31:36 Benign essentia l hyperten eleanor 7469248 Active 2014 Location : None;Sev erity: Moderate ;Progres s: Stable;A dded By: Lazara Fuentes;Add to Current Problems : YES Not Available [facility] 7 07:58:49 Middle ear conducti ve hearing loss 72359949 Completed 201408/26/2019 Location : None;Sev erity: Moderate ;Progres s: Stable;A dded By: Marycruz Reich i;Yusuf dd to Current Problems : YES MIKE Soto Attn: Accounting ,[address] [facility], [place], [address] , [facility] 0 11:31:26 Neoplasm of uncertai n behavior of skin 30820305 Completed 201404/07/2015 Location : None;Sev erity: Moderate ;Progres s: Stable;A dded By: Lazara Fuentes;Add to Current Problems : YES Not Available [facility] 7 07:58:49 Lumbar sprain 383995299 Completed 201404/07/2015 Location : None;Sev erity: Moderate ;Progres s: Stable;A dded By: Lazara Fuentes;Add to Current Problems : YES Not Available [facility] 7 07:58:49 Neoplasm of uncertai n behavior of skin 14280688 Completed 201403/16/2015 Location : None;Sev erity: Moderate ;Progres s: Stable;A dded By: Karen Milton;Ad d to Current Problems : YES Not Available [facility] 7 07:58:50 Diarrhea 99396151 Completed 201406/02/2015 Location : None;Sev erity: Moderate ;Progres s: Stable;A dded By: Nelda Peña; Add to Current Problems : YES Not Available [facility] 7 07:58:50 Family history of malignan t neoplasm of thoracic cavity structur e 120028648 Active 2014 Location : None;Sev erity: Moderate ;Progres s: Stable;A dded By: Lazara Fuentes;Add to Current Problems : YES Not Available [facility] 7 07:58:50 Prostate specific antigen above referenc e range 947251219 Completed 201409/08/2015 Location : None;Sev erity: Moderate ;Progres s: Stable;A dded By: Lazara Fuentes;Add to Current Problems : YES Not Available [facility] 7 07:58:50 Acute sinusiti s 73894712 Completed 201409/09/2015 Location : None;Sev erity: Moderate ;Progres s: Stable;A dded By: Brooke Oviedo;Add to Current Problems : YES Not Available [facility] 7 07:58:50 Screenin g for malignan t neoplasm of colon Active 2015 Location : None;Sev erity: Moderate ;Progres s: Stable;A dded By: Lazara Fuentes;Add to Current Problems : YES Not Available [facility] 07:58:50 Abnormal weight loss 200333085 Completed 201509/16/2018 Location : None;Sev erity: Moderate ;Progres s: Stable;A dded By: Marycruz Reich i;Yusuf dd to Current Problems : NO MIKE Soto Attn: Accounting ,[address] [place], [address] , [facility] 9 14:54:12 Contact dermatit is due to plants, except food Completed 201502/03/2016 Location : None;Sev erity: Moderate ;Progres s: Stable;A dded By: Marycruz Reich i;Yusuf dd to Current Problems : YES Not Available [facility] 07:58:51 Problem Notes None recorded. Procedures Surgical History Date Name Laterality Status Provider Name and Address Organization Details Recorded Time 018 Knee arthroscopy/surger y completed Macey Zhou RN [facility] 06/22/2018 12:49:40 Hernia Repair completed [facility] 11/13/2017 13:39:13 Cholecystectomy completed [facility] Jennifer [facility] 11/13/2017 13:39:07 Imaging Results None recorded. Procedure Notes None recorded. Medical Equipment None Reported. Allergies Allergen ID Allergen Name Allergen Category Reaction Reaction Severity Criticality Documentation Date Start Date Code Code System Note Provider Name and Address Organization Details Recorded Time 528057 Paxlovid medicatio n diarrhea Not available Not available 12/18/2021 Jacklyn diallo [facility] 14:03:15 Medications Name Sig Start Date Stop Date Status Note LastModified by Organization Details LastModified Time cyclobenz aprine 10 mg tablet TAKE 1 TABLET BY MOUTH THREE TIMES DAILY NEEDED . DO NOT DRIVE AFTER TAKING. 03/06 completed Not Available Not Available Not Available azelastin e 0.05 % eye drops APPLY ONE DROP BOTH EYES TWICE DAILY FOR 30 DAYS active Not Available Not Available No t Available prednison e 10 mg tablet take [...] Available Not Available ibuprofen 800 mg tablet 05/24 completed Not Available Not Available Not Available metoprolo l succinate ER 50 mg tablet,ex tended release 24 hr Take 1 tablet(s ) by mouth daily 08/01 completed RxNorm: 429355;A corrie Substitu tion: True Not Available Not Available Not Available hydrocodo ne 5 mg-acetam inophen 325 mg tablet TAKE 1 TABLET BY MOUTH EVERY 6 HOURS NEEDED FOR PAIN OR ACUTE PAIN 12/14 completed Not Available Not Available Not Available ondansetr on HCl 4 mg tablet Take 2 tablets twice a day by oral route as needed, for nausea/v omiting. 2024 active Not Available Not Available Not Avai lable Debrox 6.5 % ear drops INSTILL 5 [...] TIMES DAILY FOR UP TO 2 WEEKS 05/24 completed Not Available Not Available Not Available ceftriaxo ne 1 gram solution for [...] completed Not Available Not Available Not Available cephalexi n 500 mg capsule TAKE 1 CAPSULE BY MOUTH EVERY 12 HOURS FOR 7 DAYS 05/21 completed Not Available Not Available Not Available [...] ) by mouth qam 07/25 completed RxNorm: 103723;A llow Substitu tion: True Not Available Not [...] tablet DISSOLVE 1 TABLET ON THE TONGUE EVERY 4 TO 6 HOURS NEEDED FOR NAUSEA OR VOMITING active Not Available Not Available No t Available fluticaso ne propionat e 50 mcg/actua tion nasal spray,jenny pension Bonneau 1 spray every day by intranas al route. 09/16 completed Not Available Not Available Not Available doxycycli ne hyclate 100 mg tablet TAKE 1 TABLET BY MOUTH TWICE DAILY FOR 7 DAYS 05/29 completed Not Available Not Available Not Available dicyclomi ne 10 mg capsule Take 1 cap po qid prn 07/10 completed RxNorm: 238340;A llow Substitu tion: True Not Available Not [...] (BMI) Body weight Body temperature Oxygen saturation Heart rate Systolic And Diastolic Provider Name and Address Organization Details Last Updated DateTime 5 182.88 cm 22.8 kg/m2 97092.5 2 g 97.9 [degF] 97 % 66 /min 119/65 mm[Hg] Guadalupe Gaming [place] [facility] 5 11:30:19 Social History Question Answer Notes LastModified by Organizat ion Details LastModified Time Tobacco Smoking Status Never Smoker Amalia diallo, [place] [facility] 09/16/2018 14:29:28 Do You Have An Advance Directive? Yes Information n ot available 03/06/2021 Are You Blind Or Do You Have Difficulty Seeing? No Information n ot available 03/06/2021 What Is Your Level Of Caffeine Consumption? Moderate apricema Information not available 12/12/2021 In The 14 [...] 7 Days, How Much Pain Have You Big Arm? None Information not available 03/06/2021 In General, [...] Past 7 Days, How Often Have You Big Arm Sleepy In The Daytime? Rarely Information not available 03/06/2021 On They Days When You Drank Alcohol, How Often Did You Have 4 Or More Drinks At A Time? Never Information no t available 03/06/2021 # Alcohol Drinks Per Week 0 Information not available 03/06/2021 What Was The Date Of Your Most Recent Tobacco Screening? 05/24/2025 [email or web address] Information not available 05/24/2025 What Is Your Relationship Status? Information not available 03/06/2021 Do You Use Your Seat Belt Or Car Seat Routinely? Yes Information not available 03/06/2021 Do You Have Smoke And Carbon Monoxide Detectors In Your Home? Yes Information not available 03/06/2021 Are You Passively Exposed To Smoke? No Information no t available 03/06/2021 Sex: Male Functional Status Question Answer Note LastModified by Organizat ion Details LastModified Time Do you use any illicit or recreational drugs? No Information not available 03/06/2021 What is your level of alcohol consumption? None Information not available 03/06/2021 Are you currently employed? No Information not available 03/06/2021 Are you able to care for yourself independently? Yes Information not available 03/06/2021 What is your exercise level? Moderate Information not available 03/06/2021 Mental Status Question Answer Note LastModified by Organization D etails LastModified Time Do you feel stressed (tense, restless, nervous, or anxious, or unable to sleep at night)? [id number] Information not available 03/06/2021 Family History Relationship Description Onset Age of this Age Resolved Age Notes LastModified by Organization Details LastModified Time Sister Malignant neoplasm of breast charrisma Not available 2015 12:35:12 Sister Malignant neoplasm of lung [email or web address] Not available 13:39:34 Father Cerebrovascu lar accident charrisma Not available 06/2016 12:35:21 Father Heart disease charrisma Not available 2015 12:35:26 Father Hypertensive disorder charrisma Not available 2015 12:35:34 Mother Hypertensive disorder charrisma Not available 2015 12:35:34 Mother Kidney disease charrisma Not available 2015 12:35:40 Mother Malignant neoplasm of pancreas [email or web address] Not available 13:39:47 Medical History Condition Response Acid Reflux (GERD) Y High Blood Pressure Y High Cholesterol Y Immunizations Vaccine Type Date Status Note Provider Nam e and Address Organization Details Recorded Time Influenza, adjuvanted, quadrivalent, PF 10/22/202 1 completed MIKE Soto Attn: Accounting,[address] [facility], [place], [place], [address] [place] [address], [place] - [facility] 04/29/2023 09:22:48 COVID-19, mRNA, LNP-S, PF, 30 mcg/0.3 mL dose 1 completed MIKE Soto Attn: Accounting[address] [place], [place], [address] [place] [address], [place] - [facility] 04/29/2023 09:22:48 COVID-19, mRNA, LNP-S, PF, 30 mcg/0.3 mL dose 1 completed MIKE Soto Attn: Accounting[address] [place], [place], [address] [place] [address], [place] - [facility] 04/29/2023 09:22:48 Influenza, split virus, quadrivalent, preservative 7 completed Not Available [facility] 08/07/2019 02:33:02 Tdap 5 completed Not Available [facility] 05/24/2025 10:44:19 Tdap 8 completed Not Available [facility] 08/07/2019 02:45:24 Influenza, split virus, quadrivalent, preservative 8 completed Not Available [facility] [facility] 08/07/2019 02:51:07 Influenza, split virus, quadrivalent, preservative 0 completed Chari Gómez [place] null, [place] [facility] 08/26/2019 12:10:01 Tdap 6 completed Tara Ocasio [place], [place] [facility] 07/01/2016 10:36:30 Pneumococcal conjugate PCV 13 5 completed MIKE Soto Attn: Accounting,[address] [place], [place], [address] [place] [address], [place] [facility] 04/29/2023 09:22:48 pneumococcal polysaccharide PPV23 4 completed MIKE Soto Attn: Accounting,[address] [place], [address], [place] [facility] 04/29/2023 09:22:48 Influenza, split virus, trivalent, preservative 2 completed Not Available [facility] 08/21/2019 02:11:43 Influenza, split virus, trivalent, preservative 3 completed Not Available [facility] 08/21/2019 02:11:43 Influenza, split virus, trivalent, preservative 4 completed Not Available [facility] 08/21/2019 02:11:43 Influenza, split virus, quadrivalent, preservative 5 completed Not Available [facility] 08/21/2019 02:11:43 Influenza, high-dose, trivalent, PF 4 completed Blessing Montelongo [place], [place] [facility] 04/15/2024 16:16:11 Influenza, high-dose, trivalent, PF 5 completed Guadalupe Gaming [place] [facility] 05/24/2025 13:20:52 Pneumococcal conjugate PCV20, polysaccharide NSW380 conjugate, adjuvant, PF 5 completed Guadalupe Gaming [place], [place] [facility] 05/24/2025 13:20:53 Past Encounters Encounter ID Performer Location Encounter Start Date Encounter Closed Date Diagnosis/Indication Diagnosis SNOMED-CT Code Diagnosis ICD10 Code Diagnosis IMO Codes Diagnosis Note [id number] Verona Turner MD [facility] [address] [facility] [place] [address] 05/24/2025 10:43:21 05/24/2025 16:05:49 Adult health examination 569580541 Z00.00 Health Risk Assessment collected and reviewed. FIT test negative in November 2024 and colonoscop y with [facility] normal 2015 he declines further colorectal cancer screening, tetanus 12/05, zostavax completed, needs updated prevnar and influenza, recommende d seasonal covid and rsv. Hep C screening complete 06/19/21, offered AAA screening. Screening for malignant neoplasm of prostate 347443004 Z12.5 [id number] sees urology PSA 3.3 last reported, will get urology records, Dr. Arnold at [place] 3.1 this year. REceived records Benign ess ential hypertension 9942380 I10 stable today, has a huge stock pile of metoprolol and doesn't need any. Gastroesop hageal reflux disease 863080521 K21.9 Having pretty consistent dyspepsia where he has very bloated full feeling in his epigastriu m after lunch or dinner, gets relief with TUMS, also with this ST with soda and intermitte nt hoarseness . Agrees to EGD. Influenza vaccination given 2670667431 9109 Z23 [id number] Requires v accination against Streptococcus pneumoniae 6173991280 Z23 191521 Nausea 099100687 R11.0 Abdominal aortic aneurysm screening 104632052 Z13.6 682476 Family his tory of malignant neoplasm of pancreas 422010034 Z80.0 [id number] requests yearly CEAs and sed rate for FH GI cancers. Will add this year a Ca 19-9 as well. Hoarse 61184248 R49.0 [id number] with off and on ST rena with carbonatio n likely. EGD will cover the vocal cord visualizat ion Recurrent bleeding of nose 7366508168 102 R04.0 50925948 3 days in row two weeks ago, then once last week, none since then. Left side. Resolved after 10 minutes max. Saline NS daily recommende d, exam normal today. Impacted c erumen in left ear [id number] 870564 H61.22 8135142 successful ear wash. Health Concerns Section Related Observation LastModified by Organization Detai ls LastModified Time None Recorded Concern Status LastModified by Organization Details LastModified Time None Recorded Payers Encounter Date Sequence Insurance Name Policy Number Policy Mckeon Covered Member ID Mckeon Member ID Guarantor Name 05/24/2025 1 [facility] (MEDICARE REPLACEMENT/A DVANTAGE - PPO) [id number] Marek Schulz [id number] Marek Schulz Notes Date Note Type Note Provider Name and Address Organization Details Recorded Time 05/24/2025 text/html MAW 2Reported by PatientSocial/Behavi oral HistoryFor diet and nutrition, patient reportshealthy diet. For fracture risk, patient reportsno history of fracturesandno sudden unexplained fractures.Mental Status:For concentration and memory, patient reportsno decreased concentrating ability,no memory lapses or loss, anddoes not forget words. For speech/motor difficulties, patient reportsno speech difficulties,no difficulty expressing formulated concepts,no difficulty with fine manipulative tasks,no difficulty writing/copying,no slowed reaction time, anddoes not knock things over when trying to pick them up.Functional AbilityFor home safety, patient reportsdoes not have hand bars in the bathroom/showerbut reportsno unsafe gretel hazzards,no unsafe stairs,working smoke/co detectors,practicing 'safer sex',no fire arms, andgood lighting in the home. For hearing, patient reportsno loss of hearing(some hearing loss). For vision, patient reportsno vision problems. For activities of daily living, patient reportsable to bathe with limited or no assistance,able to contol urination and bowels,able to dress with limited or no assistance,able to feed self with limited or no assistance,able to get out of chair or bed with limited or no assistance,able to groom with limited or no assistance, andable to toilet with limited or no assistance. For instrumental activities of daily living, patient reportsable to do house work with limited or no assistance,able to grocery shop with limited or no assistance,able to manage medications with limited or no assistance,able to manage money with limited or no assistance,able to prepare meals with limited or no assistance, andable to use the phone with limited or no assistance. For falls risk assessment, patient reportsno frequent falls while walking,no fall in the past year,no fall since last visit, andno dizziness/vertigo.Fe els his lungs burning on occasion out in the cold, but no cough, no SOB. Just wondering if he should have a CXR, has never had one, never a smoker. Having pretty consistent dyspepsia where he has very bloated full feeling in his epigastrium after lunch or dinner, gets relief with TUMS, also with this ST with soda and intermittent hoarseness. In the past with EGD was told that he has very red throat and not to drink soda or eat greasy foods.ROS as noted in the HPI MIKE Soto Attn: Accounting,[address] [facility], [place], [address], [facility] 05/24/2025 14:10:12
--- OUTSIDE RECORDS SUMMARY | 2025-06-13 08:06 | XMS_ITS | Data Portability ---
[facility] Address [address] [place] [address] Assessment No assessment recorded. Plan of Treatment Reminders Order Date Submit Date Provider Last Modified By Organization Details Last Modified Time Details Appointments MEDICARE WELLNESS VISIT 2025 10:00A M MIKE Soto Not available Not available Not available Lab carcinoem bryonic Ag, quant, serum or plasma 2024 025 [facility], [address], [place], [address], 05/26/2025 02:15:43 cancer Ag 19-9, serum or plasma 2024 025 [facility], [address], [place], [address], 05/26/2025 02:15:44 CBC w/ auto diff 2024 025 [facility], [address], [place], [address], 05/26/2025 02:15:43 CMP, serum or plasma 2024 025 [facility], [address], [place], [address], 05/26/2025 02:15:42 lipid panel, serum 2024 025 [facility], [address], [place], [address], 05/26/2025 02:15:42 CBC 2024 025 [facility], [address], [address], [place], [address], 12/15/2024 13:02:01 iron + TIBC + ferritin, serum 2024 025 [facility], [address], [address], [place], [address], 12/15/2024 13:01:58 CMP, serum or plasma 2024 025 [facility], [address], [address], [place], [address], 12/15/2024 13:02:00 fecal occult blood, immunoass ay, stool 2024 025 [facility], [address] [place] [address], [place], [address], 12/21/2024 16:12:45 lipid panel, serum 2023 024 [facility], [address], [address], [place], [address], 04/16/2024 11:00:37 carcinoem bryonic Ag, quant, serum or plasma 2023 024 [facility], [address], [address], [place], [address], 04/16/2024 11:00:39 CMP, serum or plasma 2023 024 [facility], [address], [address], [place], [address], 04/16/2024 11:00:38 CBC w/ auto diff 2023 024 [facility], [address], [place], [address], 04/16/2024 11:00:38 lipid panel, serum 2022 023 [facility], [address], [address], [place], [address], 05/01/2023 06:55:59 urinalysi s, complete 2022 023 [facility], [address], [address], [place], [address], 05/01/2023 06:56:01 CBC w/ auto diff 2022 023 [facility], [address], [address], [place], [address], 05/01/2023 06:56:02 iron + TIBC + ferritin, serum 2022 023 [facility], [address], [address], [place], [address], 05/01/2023 06:55:59 CMP, serum or plasma 2022 023 [facility], [address], [address], [place], [address], 05/01/2023 06:56:00 carcinoem bryonic Ag, quant, serum or plasma 2022 023 [facility], [address], [address], [place], [address], 05/01/2023 06:56:03 erythrocy te sedimenta tion rate by aura n method 2022 023 [facility], [address], [address], [place], [address], 05/01/2023 06:56:01 Referral gastroent erologist referral 2024 025 [facility], [address], [address], [place], [address], 05/31/2025 16:11:44 cardiolog ist referral 2022 023 [facility], [address], [address], [place], [address], 06/22/2023 11:53:13 Procedures cerumen removal (PROC) 2024 [facility] Not available 05/24/2025 13:29:35 Surgeries None recorded. Imaging US, screening for abdominal aortic aneurysm 2024 [facility] (Imaging), [address], [place], [address], 05/24/2025 16:05:49 Medication Orders ondansetr on HCl 4 mg tablet 2024 025 [facility], [address], [address], [place], [address], 05/24/2025 12:05:38 omeprazol e 40 mg capsule,d elayed release 2023 024 [facility], [address], [address], [place], [address], 04/15/2024 15:22:08 hydrocort isone 2.5 % topical cream with perineal applicato r 2022 023 [id number], [address], [place], [place], [id number], 05/24/2025 11:14:24 omeprazol e 40 mg capsule,d elayed release 2022 023 [facility], [address], [address], [place], [address], 05/29/2023 11:14:49 cyanocoba svetlana (vit B-12) 1,000 mcg/mL injection solution 2022 023 Not available 04/15/2024 14:53:11 acetamino phen 300 mg-codein e 30 [address] tablet [address] [facility], [address], [place], [address], 05/29/2023 10:36:02 Patient TargetsNo targets recorded. Patient Instructions Encounter Date Encounter Id Patient Instructions Last Modified By Organization Details Last Modified Time 04/29/2023 [id number] advance care planning: care instructions Not available 04/29/2023 10:33:36 preventing falls : care instructions Not available 04/29/2023 10:33:37 eating healthy foods: care instructions Not available 04/29/2023 10:33:37 04/15/2024 [id number] advance care planning: care instructions Not available 04/15/2024 15:22:08 preventing falls : care instructions Not available 04/15/2024 15:22:08 Medicare Wellnes s Preventive Checklist Not available 04/15/2024 15:22:08 eating healthy foods: care instructions Not available 04/15/2024 15:22:08 AD8 Dementia Screening Interview Not available 04/15/2024 15:22:08 05/24/2025 [id number] advance care planning: care instructions Not available 05/24/2025 12:05:33 preventing falls : care instructions Not available 05/24/2025 12:05:33 Medicare Wellnes s Preventive Checklist Not available 05/24/2025 12:05:33 eating healthy foods: care instructions Not available 05/24/2025 12:05:33 AD8 Dementia Screening Interview Not available 05/24/2025 12:05:33 Reason for Referral Manager Estate Referral for Dy spnea on exertion Referring Physician: Guadalupe Parent, Family Medicine, Encounter Date: 04/29/2023 Lead Quality Technician Referral for Gastroesophageal reflux disease Referring Physician: Guadalupe Ware [facility], Encounter Date: 05/24/2025 Results Created Date Observation Date Name Description Value Unit Range Abnormal Flag Note LastModifiedBy Organization Detail LastModifiedTime 04/29/2005/01/2023 IRON, TIBC AND NYA TIN PANEL iron, total 79 mcg/d L 50-180 normal Not Available [address], [address], 05/01/2023 06:55:59 04/29/2005/01/2023 IRON, TIBC AND NYA TIN PANEL iron binding capacity 210 mcg/d L_(ca lc) 250-42 5 low Not Available [address], [address], 05/01/2023 06:55:59 04/29/2005/01/2023 IRON, TIBC AND NYA TIN PANEL % saturation 38 %_(ca lc) 20-48 normal Not Available [address], [address], 05/01/2023 06:55:59 04/29/2005/01/2023 IRON, TIBC AND NYA TIN PANEL ferritin 166 NG/mL 24-380 normal Not Available [address], [address], 05/01/2023 06:55:59 04/29/2005/01/2023 LIPID PANEL , STAND KIMBERLYN cholesterol, total 131 mg/dL <200 normal Not Available [address], [address], 05/01/2023 06:55:59 04/29/2005/01/2023 LIPID PANEL , STAND KIMBERLYN HDL cholesterol 45 mg/dL > or = 40 normal Not Available [address], [address], 05/01/2023 06:55:59 04/29/2005/01/2023 LIPID PANEL , STAND KIMBERLYN triglyceride s 100 mg/dL <150 normal Not Available [facility] [address] [place], [address], 05/01/2023 06:55:59 04/29/2005/01/2023 LIPID PANEL , STAND [...] n, which is a valid ated novel onealo d andresi mg michael r accur acy than the Fried gene equat ion in the estim ation of LDL-C . Magaly ross SS et al. BRIT. 2013; 310(1 9): 2061- 2068 (http ://ed ucati on.Qu [employer]Lab[employer] Systems. com/f aq/FA Q164) Not Available [facility] [address] [facility], [place], [address], 05/01/2023 06:55:59 04/29/2005/01/2023 LIPID PANEL , STAND KIMBERLYN chol/HDLC ratio 2.9 (calc ) <5.0 normal Not Available [facility] [address] [place], [address], 05/01/2023 06:55:59 04/29/2005/01/2023 LIPID PANEL , STAND KIMBERLYN non HDL cholesterol 86 mg/dL _(zina c) <130 normal For patie nts with diabe lazaro plus 1 major ASCVD risk facto r, treat ing to a non-H DL-C goal of <100 mg/dL (LDL- C of <70 mg/dL ) is consi dered a thera peuti c optio n. Not Available [facility] [address] [place], [address], 05/01/2023 06:55:59 04/29/2005/01/2023 COMPR EHENS MATTHEW METAB OLIC PANEL glucose 94 mg/dL 65-99 normal Fasti ng refer ence inter mike Not Available [address], [address], 05/01/2023 06:56:00 04/29/2005/01/2023 COMPR EHENS MATTHEW METAB OLIC PANEL urea nitrogen (BUN) 12 mg/dL 7-25 normal Not Available [address], [address], 05/01/2023 06:56:00 04/29/2005/01/2023 COMPR EHENS MATTHEW METAB OLIC PANEL creatinine 0.78 mg/dL 0.70-1 .28 normal Not Available [address], [address], 05/01/2023 06:56:00 04/29/2005/01/2023 COMPR EHENS MATTHEW METAB OLIC PANEL eGFR 92 mL/mi n/1.7 3m2 > or = 60 normal Not Available [address], [address], 05/01/2023 06:56:00 04/29/2005/01/2023 COMPR EHENS MATTHEW METAB OLIC PANEL BUN/creatini ne ratio SEE NOTE: (calc ) 6-22 Not Repor carolyn: BUN and Creat inine are withi n refer ence range . Not Available [address], [address], 05/01/2023 06:56:00 04/29/2005/01/2023 COMPR EHENS MATTHEW METAB OLIC PANEL sodium 139 mmol/ L 135-14 6 normal Not Available [address], [address], 05/01/2023 06:56:00 04/29/2005/01/2023 COMPR EHENS MATTHEW METAB OLIC PANEL potassium 4.5 mmol/ L 3.5-5. 3 normal Not Available [address], [address], 05/01/2023 06:56:00 04/29/2005/01/2023 COMPR EHENS MATTHEW METAB OLIC PANEL chloride 107 mmol/ L 98-110 normal Not Available [address], [address], 05/01/2023 06:56:00 04/29/2005/01/2023 COMPR EHENS MATTHEW METAB OLIC PANEL carbon dioxide 25 mmol/ L 20-32 normal Not Available [address], [address], 05/01/2023 06:56:00 04/29/2005/01/2023 COMPR EHENS MATTHEW METAB OLIC PANEL calcium 8.7 mg/dL 8.6-10 .3 normal Not Available [address], [address], 05/01/2023 06:56:00 04/29/2005/01/2023 COMPR EHENS MATTHEW METAB OLIC PANEL protein, total 6.1 g/dL 6.1-8. 1 normal Not Available [address], [address], 05/01/2023 06:56:00 04/29/2005/01/2023 COMPR EHENS MATTHEW METAB OLIC PANEL albumin 3.9 g/dL 3.6-5. 1 normal Not Available [address], [address], 05/01/2023 06:56:00 04/29/2005/01/2023 COMPR EHENS MATTHEW METAB OLIC PANEL globulin 2.2 g/dL_ (calc ) 1.9-3. 7 normal Not Available [address], [address], 05/01/2023 06:56:00 04/29/2005/01/2023 COMPR EHENS MATTHEW METAB OLIC PANEL albumin/glob ulin ratio 1.8 (calc ) 1.0-2. 5 normal Not Available [address], [address], 05/01/2023 06:56:00 04/29/2005/01/2023 COMPR EHENS MATTHEW METAB OLIC PANEL bilirubin, total 0.8 mg/dL 0.2-1. 2 normal Not Available [address], [address], 05/01/2023 06:56:00 04/29/2005/01/2023 COMPR EHENS MATTHEW METAB OLIC PANEL alkaline phosphatase 72 U/L 35-144 normal Not Available [address], [address], 05/01/2023 06:56:00 04/29/2005/01/2023 COMPR EHENS MATTHEW METAB OLIC PANEL AST 16 U/L 10-35 normal Not Available [address], [address], 05/01/2023 06:56:00 04/29/2005/01/2023 COMPR EHENS MATTHEW METAB OLIC PANEL ALT 10 U/L 9-46 normal Not Available [address], [address], 05/01/2023 06:56:00 04/29/2005/01/2023 URINA LYSIS , COMPL ETE color DARK YELLOW yellow normal Not Available [address], [address], 05/01/2023 06:56:00 04/29/2005/01/2023 URINA LYSIS , COMPL ETE appearance TURBID clear abnormal Not Available [address], [address], 05/01/2023 06:56:00 04/29/2005/01/2023 URINA LYSIS , COMPL ETE specific gravity 1.022 1.001- 1.035 normal Not Available [address], [address], 05/01/2023 06:56:00 04/29/2005/01/2023 URINA LYSIS , COMPL ETE pH < OR = 5.0 5.0-8. 0 normal Not Available [address], [address], 05/01/2023 06:56:00 04/29/2005/01/2023 URINA LYSIS , COMPL ETE glucose NEGATI VE negati ve normal Not Available [facility] [address], [address], 05/01/2023 06:56:00 04/29/2005/01/2023 URINA LYSIS , COMPL ETE bilirubin NEGATI VE negati ve normal Not Available [facility] [address], [address], 05/01/2023 06:56:00 04/29/2005/01/2023 URINA LYSIS , COMPL ETE ketones NEGATI VE negati ve normal Not Available [facility] [address], [address], 05/01/2023 06:56:00 04/29/2005/01/2023 URINA LYSIS , COMPL ETE occult blood NEGATI VE negati ve normal Not Available [facility] [address], [address], 05/01/2023 06:56:00 04/29/2005/01/2023 URINA LYSIS , COMPL ETE protein NEGATI VE negati ve normal Not Available [address], [address], 05/01/2023 06:56:00 04/29/2005/01/2023 URINA LYSIS , COMPL ETE nitrite NEGATI VE negati ve normal Not Available [address], [address], 05/01/2023 06:56:00 04/29/2005/01/2023 URINA LYSIS , COMPL ETE leukocyte esterase NEGATI VE negati ve normal Not Available [address], [address], 05/01/2023 06:56:00 04/29/2005/01/2023 URINA LYSIS , COMPL ETE WBC NONE SEEN /hpf < or = 5 normal Not Available [address], [address], 05/01/2023 06:56:00 04/29/2005/01/2023 URINA LYSIS , COMPL ETE RBC NONE SEEN /hpf < or = 2 normal Not Available [address], [address], 05/01/2023 06:56:00 04/29/2005/01/2023 URINA LYSIS , COMPL ETE squamous epithelial cells NONE SEEN /hpf < or = 5 normal Not Available [address], [address], 05/01/2023 06:56:00 04/29/2005/01/2023 URINA LYSIS , COMPL ETE bacteria NONE SEEN /hpf none seen normal Not Available [address], [address], 05/01/2023 06:56:00 04/29/2005/01/2023 URINA LYSIS , COMPL ETE hyaline cast NONE SEEN /lpf none seen normal Not Available [address], [address], 05/01/2023 06:56:00 04/29/2005/01/2023 SED RATE BY MODIF IED WESTE RGREN sed rate by modified westergren 5 mm/h < or = 20 normal Not Available [address], [address], 05/01/2023 06:56:01 04/29/2005/01/2023 CBC (INCL UDES DIFF/ PLT) white blood cell count 6.8 thous and/u L 3.8-10 .8 normal Not Available [address], [address], 05/01/2023 06:56:02 04/29/2005/01/2023 CBC (INCL UDES DIFF/ PLT) red blood cell count 4.07 killian on/uL 4.20-5 .80 low Not Available [address], [address], 05/01/2023 06:56:02 04/29/20 23 05/01/2023 CBC (INCL UDES DIFF/ PLT) hemoglobin 13.2 g/dL 13.2-1 7.1 normal Not Available [address], [address], 05/01/2023 06:56:02 04/29/2005/01/2023 CBC (INCL UDES DIFF/ PLT) hematocrit 38.4 % 38.5-5 0.0 low Not Available [address], [address], 05/01/2023 06:56:02 04/29/2005/01/2023 CBC (INCL UDES DIFF/ PLT) MCV 94.3 fL 80.0-1 00.0 normal Not Available [address], [address], 05/01/2023 06:56:02 04/29/2005/01/2023 CBC (INCL UDES DIFF/ PLT) MCH 32.4 pg 27.0-3 3.0 normal Not Available [address], [address], 05/01/2023 06:56:02 04/29/2005/01/2023 CBC (INCL UDES DIFF/ PLT) MCHC 34.4 g/dL 32.0-3 6.0 normal Not Available [address], [address], 05/01/2023 06:56:02 04/29/2005/01/2023 CBC (INCL UDES DIFF/ PLT) RDW 13.6 % 11.0-1 5.0 normal Not Available [address], [address], 05/01/2023 06:56:02 04/29/2005/01/2023 CBC (INCL UDES DIFF/ PLT) platelet count 279 thous and/u L 140-40 0 normal Not Available [address], [address], 05/01/2023 06:56:02 04/29/2005/01/2023 CBC (INCL UDES DIFF/ PLT) MPV 9.6 fL 7.5-12 .5 normal Not Available [address], [address], 05/01/2023 06:56:02 04/29/2005/01/2023 CBC (INCL UDES DIFF/ PLT) absolute neutrophils 4903 cells /uL 1500-7 800 normal Not Available [address], [address], 05/01/2023 06:56:02 04/29/2005/01/2023 CBC (INCL UDES DIFF/ PLT) absolute lymphocytes 884 cells /uL 850-39 00 normal Not Available [address], [address], 05/01/2023 06:56:02 04/29/2005/01/2023 CBC (INCL UDES DIFF/ PLT) absolute monocytes 884 cells /uL 200-95 0 normal Not Available [address], [address], 05/01/2023 06:56:02 04/29/2005/01/2023 CBC (INCL UDES DIFF/ PLT) absolute eosinophils 88 cells /uL 15-500 normal Not Available [address], [address], 05/01/2023 06:56:02 04/29/2005/01/2023 CBC (INCL UDES DIFF/ PLT) absolute basophils 41 cells /uL 0-200 normal Not Available [address], [address], 05/01/2023 06:56:02 04/29/2005/01/2023 CBC (INCL UDES DIFF/ PLT) neutrophils 72.1 % normal Not Available [address], [address], 05/01/2023 06:56:02 04/29/2005/01/2023 CBC (INCL UDES DIFF/ PLT) lymphocytes 13.0 % normal Not Available [address], [address], 05/01/2023 06:56:02 04/29/2005/01/2023 CBC (INCL UDES DIFF/ PLT) monocytes 13.0 % normal Not Available [address], [address], 05/01/2023 06:56:02 04/29/20 23 05/01/2023 CBC (INCL UDES DIFF/ PLT) eosinophils 1.3 % normal Not Available [address], [address], 05/01/2023 06:56:02 04/29/2005/01/2023 CBC (INCL UDES DIFF/ PLT) basophils 0.6 % normal Not Available [address], [address], 05/01/2023 06:56:02 04/29/2005/01/2023 CEA cea <2.0 NG/mL see note: normal Refer ence Range : Non-S moker : <2.5 Smoke r: <5.0 This test was perfo rmed using the [employer] ns chemi lumin escen t metho d. Value s obtai rosibel from diffe rent assay metho ds canno t be used inter jackson eably . CEA level s, regar dless of value , shoul d not be inter prete d as absol saxman evide nce of the prese nce or absen ce of disea se. Not Available [address], [address], 05/01/2023 06:56:03 04/15/2004/16/2024 LIPID PANEL , STAND KIMBERLYN cholesterol, total 139 mg/dL <200 normal Not Available [address], [address], 04/16/2024 11:00:37 04/15/20 24 04/16/2024 LIPID PANEL , STAND KIMBERLYN HDL cholesterol 62 mg/dL > or = 40 normal Not Available [address], [address], 04/16/2024 11:00:37 04/15/20 24 04/16/2024 LIPID PANEL , STAND KIMBERLYN triglyceride s 90 mg/dL <150 normal Not Available [facility] [address] [place], [address], 04/16/2024 11:00:37 04/15/20 24 04/16/2024 LIPID PANEL , STAND KIMBERLYN LDL-choleste rol [...] which is a valid ated novel chilo olivia than the Fried gene equat ion in the estim ation of LDL-C . Magaly ross SS et al. BRIT. 2013; 310(1 9): 2061- 2068 (http ://ed ucati on.IQR Consulting car[employer]. Mobile Captain/f aq/FA Q164) Not Available [facility] [place] [address] [place], [address], 04/16/2024 11:00:37 04/15/20 24 04/16/2024 LIPID PANEL , STAND KIMBERLYN chol/HDLC ratio 2.2 (calc ) <5.0 normal Not Available [facility] [address] [place], [address], 04/16/2024 11:00:37 04/15/20 24 04/16/2024 LIPID PANEL , STAND KIMBERLYN non HDL cholesterol 77 mg/dL _(zina c) <130 normal For patie nts with diabe lazaro plus 1 major ASCVD risk facto r, treat ing to a non-H DL-C goal of <100 mg/dL (LDL- C of <70 mg/dL ) is consi kortneyd a gerald pepippa c optio n. Not Available [facility] [address] [place], [address], 04/16/2024 11:00:37 04/15/20 24 04/16/2024 COMPR EHENS MATTHEW METAB OLIC PANEL glucose 89 mg/dL 65-99 normal Fasti ng refer ence inter mike Not Available [address], [address], 04/16/2024 11:00:38 04/15/20 24 04/16/2024 COMPR EHENS MATTHEW METAB OLIC PANEL urea nitrogen (BUN) 18 mg/dL 7-25 normal Not Available [address], [address], 04/16/2024 11:00:38 04/15/20 24 04/16/2024 COMPR EHENS MATTHEW METAB OLIC PANEL creatinine 0.94 mg/dL 0.70-1 .28 normal Not Available [address], [address], 04/16/2024 11:00:38 04/15/20 24 04/16/2024 COMPR EHENS MATTHEW METAB OLIC PANEL eGFR 83 mL/mi n/1.7 3m2 > or = 60 normal Not Available [address], [address], 04/16/2024 11:00:38 04/15/20 24 04/16/2024 COMPR EHENS MATTHEW METAB OLIC PANEL BUN/creatini ne ratio SEE NOTE: (calc ) 6-22 Not Repor carolyn: BUN and Creat inine are withi n refer ence range . Not Available [address], [address], 04/16/2024 11:00:38 04/15/20 24 04/16/2024 COMPR EHENS MATTHEW METAB OLIC PANEL sodium 141 mmol/ L 135-14 6 normal Not Available [address], [address], 04/16/2024 11:00:38 04/15/20 24 04/16/2024 COMPR EHENS MATTHEW METAB OLIC PANEL potassium 4.6 mmol/ L 3.5-5. 3 normal Not Available [address], [address], 04/16/2024 11:00:38 04/15/20 24 04/16/2024 COMPR EHENS MATTHEW METAB OLIC PANEL chloride 109 mmol/ L 98-110 normal Not Available [address], [address], 04/16/2024 11:00:38 04/15/20 24 04/16/2024 COMPR EHENS MATTHEW METAB OLIC PANEL carbon dioxide 27 mmol/ L 20-32 normal Not Available [address], [address], 04/16/2024 11:00:38 04/15/20 24 04/16/2024 COMPR EHENS MATTHEW METAB OLIC PANEL calcium 9.0 mg/dL 8.6-10 .3 normal Not Available [address], [address], 04/16/2024 11:00:38 04/15/20 24 04/16/2024 COMPR EHENS MATTHEW METAB OLIC PANEL protein, total 6.0 g/dL 6.1-8. 1 low Not Available [address], [address], 04/16/2024 11:00:38 04/15/20 24 04/16/2024 COMPR EHENS MATTHEW METAB OLIC PANEL albumin 3.7 g/dL 3.6-5. 1 normal Not Available [address], [address], 04/16/2024 11:00:38 04/15/20 24 04/16/2024 COMPR EHENS MATTHEW METAB OLIC PANEL globulin 2.3 g/dL_ (calc ) 1.9-3. 7 normal Not Available [address], [address], 04/16/2024 11:00:38 04/15/20 24 04/16/2024 COMPR EHENS MATTHEW METAB OLIC PANEL albumin/glob ulin ratio 1.6 (calc ) 1.0-2. 5 normal Not Available [address], [address], 04/16/2024 11:00:38 04/15/20 24 04/16/2024 COMPR EHENS MATTHEW METAB OLIC PANEL bilirubin, total 0.6 mg/dL 0.2-1. 2 normal Not Available [address], [address], 04/16/2024 11:00:38 04/15/20 24 04/16/2024 COMPR EHENS MATTHEW METAB OLIC PANEL alkaline phosphatase 69 U/L 35-144 normal Not Available [address], [address], 04/16/2024 11:00:38 04/15/20 24 04/16/2024 COMPR EHENS MATTHEW METAB OLIC PANEL AST 15 U/L 10-35 normal Not Available [address], [address], 04/16/2024 11:00:38 04/15/20 24 04/16/2024 COMPR EHENS MATTHEW METAB OLIC PANEL ALT 9 U/L 9-46 normal Not Available [address], [address], 04/16/2024 11:00:38 04/15/20 24 04/16/2024 CBC (INCL UDES DIFF/ PLT) white blood cell count 6.4 thous and/u L 3.8-10 .8 normal Not Available [address], [address], 04/16/2024 11:00:38 04/15/20 24 04/16/2024 CBC (INCL UDES DIFF/ PLT) red blood cell count 3.94 killian on/uL 4.20-5 .80 low Not Available [address], [address], 04/16/2024 11:00:38 04/15/20 24 04/16/2024 CBC (INCL UDES DIFF/ PLT) hemoglobin 12.7 g/dL 13.2-1 7.1 low Not Available [address], [address], 04/16/2024 11:00:38 04/15/20 24 04/16/2024 CBC (INCL UDES DIFF/ PLT) hematocrit 37.7 % 38.5-5 0.0 low Not Available [address], [address], 04/16/2024 11:00:38 04/15/20 24 04/16/2024 CBC (INCL UDES DIFF/ PLT) MCV 95.7 fL 80.0-1 00.0 normal Not Available [address], [address], 04/16/2024 11:00:38 04/15/20 24 04/16/2024 CBC (INCL UDES DIFF/ PLT) MCH 32.2 pg 27.0-3 3.0 normal Not Available [address], [address], 04/16/2024 11:00:38 04/15/20 24 04/16/2024 CBC (INCL UDES DIFF/ PLT) MCHC 33.7 g/dL 32.0-3 6.0 normal Not Available [address], [address], 04/16/2024 11:00:38 04/15/20 24 04/16/2024 CBC (INCL UDES DIFF/ PLT) RDW 13.3 % 11.0-1 5.0 normal Not Available [address], [address], 04/16/2024 11:00:38 04/15/20 24 04/16/2024 CBC (INCL UDES DIFF/ PLT) platelet count 314 thous and/u L 140-40 0 normal Not Available [address], [address], 04/16/2024 11:00:38 04/15/20 24 04/16/2024 CBC (INCL UDES DIFF/ PLT) MPV 9.9 fL 7.5-12 .5 normal Not Available [address], [address], 04/16/2024 11:00:38 04/15/20 24 04/16/2024 CBC (INCL UDES DIFF/ PLT) absolute neutrophils 4237 cells /uL 1500-7 800 normal Not Available [address], [address], 04/16/2024 11:00:38 04/15/20 24 04/16/2024 CBC (INCL UDES DIFF/ PLT) absolute lymphocytes 1389 cells /uL 850-39 00 normal Not Available [address], [address], 04/16/2024 11:00:38 04/15/20 24 04/16/2024 CBC (INCL UDES DIFF/ PLT) absolute monocytes 595 cells /uL 200-95 0 normal Not Available [address], [address], 04/16/2024 11:00:38 04/15/20 24 04/16/2024 CBC (INCL UDES DIFF/ PLT) absolute eosinophils 128 cells /uL 15-500 normal Not Available [address], [address], 04/16/2024 11:00:38 04/15/20 24 04/16/2024 CBC (INCL UDES DIFF/ PLT) absolute basophils 51 cells /uL 0-200 normal Not Available [address], [address], 04/16/2024 11:00:38 04/15/20 24 04/16/2024 CBC (INCL UDES DIFF/ PLT) neutrophils 66.2 % normal Not Available [address], [address], 04/16/2024 11:00:38 04/15/20 24 04/16/2024 CBC (INCL UDES DIFF/ PLT) lymphocytes 21.7 % normal Not Available [address], [address], 04/16/2024 11:00:38 04/15/20 24 04/16/2024 CBC (INCL UDES DIFF/ PLT) monocytes 9.3 % normal Not Available [address], [address], 04/16/2024 11:00:38 04/15/20 24 04/16/2024 CBC (INCL UDES DIFF/ PLT) eosinophils 2.0 % normal Not Available [address], [address], 04/16/2024 11:00:38 04/15/20 24 04/16/2024 CBC (INCL UDES DIFF/ PLT) basophils 0.8 % normal Not Available [address], [address], 04/16/2024 11:00:38 04/15/20 24 04/16/2024 CEA cea <2.0 NG/mL see note: normal Refer ence Range : Non-S moker : <2.5 Smoke r: <5.0 This test was perfo rmed using the [employer] chemi lumin escen t metho d. Value s obtai rosibel from diffe rent assay metho ds canno t be used inter jackson eably . CEA level s, regar dless of value , shoul d not be inter prete d as absol saxman evide nce of the prese nce or absen ce of [facility] se. Not Available [address], [address], 04/16/2024 11:00:39 04/15/20 24 04/19/2024 IRON, TIBC AND NYA TIN PANEL iron, total 115 mcg/d L 50-180 normal Not Available [address], [address], 04/19/2024 17:32:11 04/15/2004/19/2024 IRON, TIBC AND NYA TIN PANEL iron binding capacity 243 mcg/d L_(ca lc) 250-42 5 low Not Available [address], [address], 04/19/2024 17:32:11 04/15/20 24 04/19/2024 IRON, TIBC AND NYA TIN PANEL % saturation 47 %_(ca lc) 20-48 normal Not Available [address], [address], 04/19/2024 17:32:11 04/15/20 24 04/19/2024 IRON, TIBC AND NYA TIN PANEL ferritin 96 NG/mL 24-380 normal Not Available [address], [address], 04/19/2024 17:32:11 04/15/20 24 04/19/2024 TEST AUTHO RIZAT ION test name: IRON, TIBC AND FERRIT IN PANEL Not Available [address], [address], 04/19/2024 17:32:14 04/15/20 24 04/19/2024 TEST AUTHO RIZAT ION test code: 5616SB 7065SB Not Available [address], [place], [address], 04/19/2024 17:32:14 04/15/20 24 04/19/2024 TEST AUTHO RIZAT ION client contact: ABBY TITUS Not Available [facility] [address] [address] [place], [address], 04/19/2024 17:32:14 04/15/20 24 04/19/2024 TEST AUTHO RIZAT ION report always message signature The labor atory testi ng on this patie nt was verba lly reque sted or confi rmed by the order ing physi luis manuel or his or her autho rized repre senta tive after conta ct with an emplo cantrell of [facility] al regul ation s requi re that we maint ain on file writt en autho rizat ion for all labor atory testi ng. Accor dingl y we are askin g that the order ing physi luis manuel or his or her autho rized repre senta tive sign a copy of this repor t and promp tly retur n it to the clien t servi ce repre senta tive. Signa ture: __ Not Available [facility] [address] [address] [place], [address], 04/19/2024 17:32:14 04/15/20 24 04/19/2024 TEST AUTHO RIZAT ION comment Fax pieter r: [phone] Not Available [facility] [address] [address] [place], [address], 04/19/2024 17:32:14 04/15/20 24 04/19/2024 VITAM IN B12/F OLATE , SERUM PANEL vitamin B12 497 pg/mL 200-11 00 normal Not Available [facility] [address] [place], [address], 04/19/2024 17:32:15 04/15/2004/19/2024 VITAM IN B12/F OLATE , SERUM PANEL folate, serum 17.5 NG/mL normal Refer ence Range Low: <3.4 Borde rline : 3.4-5 .4 Wanda l: >5.4 Not Available [facility] [address] [address], [place], [address], 04/19/2024 17:32:15 04/27/20 24 05/02/2024 Bacte brock ident ified in Speci men by Anaer obe cultu re specimen source identified TOE,LE FT SPEC DESCR IPTIO N TOE,L EFT 04/27 7:55 AM CDT [facility] Not Available Not Available 12/14/2024 03:18:08 04/27/2005/02/2024 Bacte brock ident ified in Speci men by Anaer obe cultu re service comment NO SPECIA L REQUES T SPECI AL REQUE STS NO SPECI AL REQUE ST 04/27 7:55 AM CDT [facility] Not Available Not Available 12/14/2024 03:18:08 04/27/2005/02/2024 Bacte brock ident ified in Speci men by Anaer obe cultu re microscopic observation [identifier] in specimen by gram stain RARE WHITE BLOOD CELLS SEEN GRAM STAIN RESUL T RARE WHITE BLOOD CELLS SEEN 04/27 2:32 PM CDT [facility] Not Available Not Available 12/14/2024 03:18:08 04/27/2005/02/2024 Bacte brock ident ified in Speci men by Anaer obe cultu re microscopic observation [identifier] in specimen by gram stain MANY RED BLOOD CELLS SEEN GRAM STAIN RESUL T MANY RED BLOOD CELLS SEEN 04/27 2:32 PM CDT [facility] Not Available Not Available 12/14/2024 03:18:08 04/27/20 24 05/02/2024 Bacte brock ident ified in Speci men by Anaer obe cultu re microscopic observation [identifier] in specimen by gram stain NO ORGANI SMS SEEN GRAM STAIN RESUL T NO ORGAN ISMS SEEN 04/27 2:32 PM CDT [facility] Not Available Not Available 12/14/2024 03:18:08 04/27/20 24 05/02/2024 Bacte brock ident ified in Speci men by Anaer obe cultu re bacteria identified in specimen by culture NO GROWTH 5 DAYS CULTU RE RESUL T NO GROWT H 5 DAYS 05/02 6:55 AM CDT [facility] Not Available Not Available 12/14/2024 03:18:08 [...] OBIC ORGAN ISMS. 05/02 6:55 AM CDT [facility] Not Available Not Available 12/14/2024 03:18:08 04/27/20 24 04/28/2024 Patho logy study pathology study [facility] Dep[facility] ment [facility] [address] [place] [address] Teleph one: , extens ion [phone] Pathol ogy Report Surgic al Pathol ogy Report Name: PONCE GIBSON Bernardo en #: [id number] Age: [birth year] (Age: 79) Locati on: [facility] Sex: M Proced ure Date: Hospit al #: [id number] Date Receiv ed: Date Report ed: Provid er: GELACIO MACK DPYessi Source : Toe, left great Clinic al [...] and sign out were perfor med at [facility], [address] [place] [address]. FINAL DIAGNO SIS: Soft tissue , left great toe, excisi on: -Epide rmal inclus ion cyst. Elec tronic ally Signed Out GAVI JAIME MD PATHO LOGY [facility] harpreet Depar tment of Labor atory Medic ine [address] [facility] nter [facility], [place] [address] Telep conrad: , exten eleanor [phone] Patho logy Repor t Surgi zina Patho logy Repor t Name: PONCE GOTTI Speci men #: [id number] Age: [birth year] (Age: 79) Locat ion: [facility] Sex: Yessi Sifuentes dure Date: 2023 Hospi harpreet #: [id number] Date Recei kathy: 2023 Date Repor [...] and sign out were perfo rmed at [facility], [address] [facility], [place] [address] . FINAL DIAGN OSIS: Soft tissu e, left great toe, excis ion: -Epid ermal inclu eleanor cyst. Abigail ctron icall y Nila d Out ERNESTINE Cabrera MD [facility] Not Available Not Available 12/14/2024 03:18:07 12/14/1912/15/2024 IRON, TIBC AND NYA TIN PANEL iron, total 181 mcg/d L 50-180 high Not Available [facility] [address] [address] [place], [address], 12/15/2024 13:01:58 12/14/1912/15/2024 IRON, TIBC AND NYA TIN PANEL iron binding capacity 251 mcg/d L_(ca lc) 250-42 5 normal Not Available [facility] [address], [address], 12/15/2024 13:01:58 12/14/19 25 12/15/2024 IRON, TIBC AND NYA TIN PANEL % saturation 72 %_(ca lc) 20-48 high Not Available [facility] [address] [place], [address], 12/15/2024 13:01:58 12/14/19 25 12/15/2024 IRON, TIBC AND NYA TIN PANEL ferritin 128 NG/mL 24-380 normal Not Available [facility] [address] [address] [place], [address], 12/15/2024 13:01:58 12/14/19 25 12/15/2024 COMPR EHENS MATTHEW METAB OLIC PANEL glucose 86 mg/dL 65-99 normal Fasti ng refer ence inter mike Not Available [address], [address], 12/15/2024 13:02:00 12/14/19 25 12/15/2024 COMPR EHENS MATTHEW METAB OLIC PANEL urea nitrogen (BUN) 16 mg/dL 7-25 normal Not Available [address], [address], 12/15/2024 13:02:00 12/14/19 25 12/15/2024 COMPR EHENS MATTHEW METAB OLIC PANEL creatinine 0.89 mg/dL 0.70-1 .28 normal Not Available [address], [address], 12/15/2024 13:02:00 12/14/19 25 12/15/2024 COMPR EHENS MATTHEW METAB OLIC PANEL eGFR 88 mL/mi n/1.7 3m2 > or = 60 normal Not Available [address], [address], 12/15/2024 13:02:00 12/14/1912/15/2024 COMPR EHENS MATTHEW METAB OLIC PANEL BUN/creatini ne ratio SEE NOTE: (calc ) 6-22 Not Repor carolyn: BUN and Creat inine are withi n refer ence range . Not Available [address], [address], 12/15/2024 13:02:00 12/14/19 25 12/15/2024 COMPR EHENS MATTHEW METAB OLIC PANEL sodium 139 mmol/ L 135-14 6 normal Not Available [address], [address], 12/15/2024 13:02:00 12/14/19 25 12/15/2024 COMPR EHENS MATTHEW METAB OLIC PANEL potassium 4.9 mmol/ L 3.5-5. 3 normal Not Available [address], [address], 12/15/2024 13:02:00 12/14/19 25 12/15/2024 COMPR EHENS MATTHEW METAB OLIC PANEL chloride 107 mmol/ L 98-110 normal Not Available [address], [address], 12/15/2024 13:02:00 12/14/19 25 12/15/2024 COMPR EHENS MATTHEW METAB OLIC PANEL carbon dioxide 28 mmol/ L 20-32 normal Not Available [address], [address], 12/15/2024 13:02:00 12/14/19 25 12/15/2024 COMPR EHENS MATTHEW METAB OLIC PANEL calcium 9.3 mg/dL 8.6-10 .3 normal Not Available [address], [address], 12/15/2024 13:02:00 12/14/19 25 12/15/2024 COMPR EHENS MATTHEW METAB OLIC PANEL protein, total 6.3 g/dL 6.1-8. 1 normal Not Available [address], [address], 12/15/2024 13:02:00 12/14/19 25 12/15/2024 COMPR EHENS MATTHEW METAB OLIC PANEL albumin 4.1 g/dL 3.6-5. 1 normal Not Available [address], [address], 12/15/2024 13:02:00 12/14/19 25 12/15/2024 COMPR EHENS MATTHEW METAB OLIC PANEL globulin 2.2 g/dL_ (calc ) 1.9-3. 7 normal Not Available [address], [address], 12/15/2024 13:02:00 12/14/1912/15/2024 COMPR EHENS MATTHEW METAB OLIC PANEL albumin/glob ulin ratio 1.9 (calc ) 1.0-2. 5 normal Not Available [address], [address], 12/15/2024 13:02:00 12/14/19 25 12/15/2024 COMPR EHENS MATTHEW METAB OLIC PANEL bilirubin, total 1.0 mg/dL 0.2-1. 2 normal Not Available [address], [address], 12/15/2024 13:02:00 12/14/19 25 12/15/2024 COMPR EHENS MATTHEW METAB OLIC PANEL alkaline phosphatase 68 U/L 35-144 normal Not Available [address], [address], 12/15/2024 13:02:00 12/14/19 25 12/15/2024 COMPR EHENS MATTHEW METAB OLIC PANEL AST 16 U/L 10-35 normal Not Available [address], [address], 12/15/2024 13:02:00 12/14/19 25 12/15/2024 COMPR EHENS MATTHEW METAB OLIC PANEL ALT 11 U/L 9-46 normal Not Available [address], [address], 12/15/2024 13:02:00 12/14/1912/15/2024 CBC (H/H, RBC, INDIC ES, WBC, PLT) white blood cell count 6.2 thous and/u L 3.8-10 .8 normal Not Available [address], [address], 12/15/2024 13:02:01 12/14/1912/15/2024 CBC (H/H, RBC, INDIC ES, WBC, PLT) red blood cell count 4.20 killian on/uL 4.20-5 .80 normal Not Available [address], [address], 12/15/2024 13:02:12/14/1912/15/2024 CBC (H/H, RBC, INDIC ES, WBC, PLT) hemoglobin 13.2 g/dL 13.2-1 7.1 normal Not Available [address], [address], 12/15/2024 13:02:12/14/1912/15/2024 CBC (H/H, RBC, INDIC ES, WBC, PLT) hematocrit 41.1 % 38.5-5 0.0 normal Not Available [address], [address], 12/15/2024 13:02:12/14/1912/15/2024 CBC (H/H, RBC, INDIC ES, WBC, PLT) MCV 97.9 fL 80.0-1 00.0 normal Not Available [address], [address], 12/15/2024 13:02:12/14/1912/15/2024 CBC (H/H, RBC, INDIC ES, WBC, PLT) MCH 31.4 pg 27.0-3 3.0 normal Not Available [address], [address], 12/15/2024 13:02:01 12/14/1912/15/2024 CBC (H/H, RBC, INDIC ES, WBC, PLT) MCHC 32.1 g/dL 32.0-3 6.0 normal For adult s, a sligh t decre ase in the calcu lated MCHC value (in the range of 30 to 32 g/dL) is most likel y not clini maritza signi gonzales t; linh er, it shoul d be inter prete d with cauti on in [facility] n with other red cell edmond eters and the patie nt's clini zina condi tion. Not Available [address], [address], 12/15/2024 13:02:01 12/14/19 25 12/15/2024 CBC (H/H, RBC, INDIC ES, WBC, PLT) RDW 13.5 % 11.0-1 5.0 normal Not Available [facility] [address], [address], 12/15/2024 13:02:01 12/14/19 25 12/15/2024 CBC (H/H, RBC, INDIC ES, WBC, PLT) platelet count 324 thous and/u L 140-40 0 normal Not Available [facility] [address], [address], 12/15/2024 13:02:01 12/14/19 25 12/15/2024 CBC (H/H, RBC, INDIC ES, WBC, PLT) MPV 9.8 fL 7.5-12 .5 normal Not Available [address], [address], 12/15/2024 13:02:01 12/15/19 25 12/21/2024 COLOF IT,OC CULT BLOOD ,FECA L,IA occult blood, fecal, ia NEGATI VE negati ve Not Available [facility] ([facility]) [address] [facility], [place], [address], 12/21/2024 16:12:44 05/24/20 25 05/26/2025 LIPID PANEL , STAND KIMBERLYN cholesterol, total 159 mg/dL <200 normal Not Available [address], [address], 05/26/2025 02:15:42 05/24/20 25 05/26/2025 LIPID PANEL , STAND KIMBERLYN HDL cholesterol 58 mg/dL > or = 40 normal Not Available [facility] [address] [place] [address], [address], 05/26/2025 02:15:42 05/24/20 25 05/26/2025 LIPID PANEL , STAND KIMBERLYN triglyceride s 67 mg/dL <150 normal Not Available [facility] [address], [address], 05/26/2025 02:15:42 05/24/20 25 05/26/2025 LIPID PANEL , STAND KIMBERLYN LDL-choleste rol [...] which is a valid ated novel chilo d colleen cabrera accur acy than the Fried gene equat ion in the estim ation of LDL-C . Magaly ross SS et al. BRIT. 2013; 310(1 9): 2061- 2068 (http ://ed ucati on.Qu Zuleika Tigerlily. com/f aq/FA Q164) Not Available [address], [address], 05/26/2025 02:15:42 05/24/20 25 05/26/2025 LIPID PANEL , STAND KIMBERLYN chol/HDLC ratio 2.7 (calc ) <5.0 normal Not Available [facility] [address] [place] [address], [address], 05/26/2025 02:15:42 05/24/20 25 05/26/2025 LIPID PANEL , STAND KIMBERLYN non HDL cholesterol 101 mg/dL _(zian c) <130 normal For patie nts with diabe lazaro plus 1 major ASCVD risk facto r, treat ing to a non-H DL-C goal of <100 mg/dL (LDL- C of <70 mg/dL ) is mere sorenson optio n. Not Available [address] [address] [place], [address], 05/26/2025 02:15:42 05/24/2005/26/2025 COMPR EHENS MATTHEW METAB OLIC PANEL glucose 86 mg/dL 65-99 normal Fasti ng refer ence inter mike Not Available [address] [address] [place], [address], 05/26/2025 02:15:42 05/24/20 25 05/26/2025 COMPR EHENS MATTHEW METAB OLIC PANEL urea nitrogen (BUN) 21 mg/dL 7-25 normal Not Available [address] [address] [place], [address], 05/26/2025 02:15:42 05/24/20 25 05/26/2025 COMPR EHENS MATTHEW METAB OLIC PANEL creatinine 0.88 mg/dL 0.70-1 .28 normal Not Available [address] [address] [place], [address], 05/26/2025 02:15:42 05/24/20 25 05/26/2025 COMPR EHENS MATTHEW METAB OLIC PANEL eGFR 88 mL/mi n/1.7 3m2 > or = 60 normal Not Available [address] [place], [address], 05/26/2025 02:15:42 05/24/2005/26/2025 COMPR EHENS MATTHEW METAB OLIC PANEL BUN/creatini ne ratio SEE NOTE: (calc ) 6-22 Not Repor carolyn: BUN and Creat inine are withi n refer ence range . Not Available [address] [address] [place], [address], 05/26/2025 02:15:42 05/24/20 25 05/26/2025 COMPR EHENS MATTHEW METAB OLIC PANEL sodium 139 mmol/ L 135-14 6 normal Not Available [address], [address], 05/26/2025 02:15:42 05/24/20 25 05/26/2025 COMPR EHENS MATTHEW METAB OLIC PANEL potassium 4.3 mmol/ L 3.5-5. 3 normal Not Available [address], [address], 05/26/2025 02:15:42 05/24/2005/26/2025 COMPR EHENS MATTHEW METAB OLIC PANEL chloride 106 mmol/ L 98-110 normal Not Available [address], [address], 05/26/2025 02:15:42 05/24/20 25 05/26/2025 COMPR EHENS MATTHEW METAB OLIC PANEL carbon dioxide 24 mmol/ L 20-32 normal Not Available [address], [address], 05/26/2025 02:15:42 05/24/20 25 05/26/2025 COMPR EHENS MATTHEW METAB OLIC PANEL calcium 9.1 mg/dL 8.6-10 .3 normal Not Available [address], [address], 05/26/2025 02:15:42 05/24/20 25 05/26/2025 COMPR EHENS MATTHEW METAB OLIC PANEL protein, total 6.4 g/dL 6.1-8. 1 normal Not Available [address], [address], 05/26/2025 02:15:42 05/24/20 25 05/26/2025 COMPR EHENS MATTHEW METAB OLIC PANEL albumin 4.3 g/dL 3.6-5. 1 normal Not Available [facility] [address] [place], [address], 05/26/2025 02:15:42 05/24/20 25 05/26/2025 COMPR EHENS MATTHEW METAB OLIC PANEL globulin 2.1 g/dL_ (calc ) 1.9-3. 7 normal Not Available [address], [address], 05/26/2025 02:15:42 05/24/20 25 05/26/2025 COMPR EHENS MATTHEW METAB OLIC PANEL albumin/glob ulin ratio 2.0 (calc ) 1.0-2. 5 normal Not Available [address], [address], 05/26/2025 02:15:42 05/24/20 25 05/26/2025 COMPR EHENS MATTHEW METAB OLIC PANEL bilirubin, total 1.6 mg/dL 0.2-1. 2 high Not Available [address] [address] [place], [address], 05/26/2025 02:15:42 05/24/20 25 05/26/2025 COMPR EHENS MATTHEW METAB OLIC PANEL alkaline phosphatase 63 U/L 35-144 normal Not Available [address] [address] [place], [address], 05/26/2025 02:15:42 05/24/20 25 05/26/2025 COMPR EHENS MATTHEW METAB OLIC PANEL AST 13 U/L 10-35 normal Not Available [address], [address], 05/26/2025 02:15:42 05/24/20 25 05/26/2025 COMPR EHENS MATTHEW METAB OLIC PANEL ALT 8 U/L 9-46 low Not Available [address] [address] [place], [address], 05/26/2025 02:15:42 05/24/20 25 05/26/2025 CBC (INCL UDES DIFF/ PLT) white blood cell count 6.8 thous and/u L 3.8-10 .8 normal Not Available [address], [address], 05/26/2025 02:15:43 05/24/20 25 05/26/2025 CBC (INCL UDES DIFF/ PLT) red blood cell count 4.09 killian on/uL 4.20-5 .80 low Not Available [address], [address], 05/26/2025 02:15:43 05/24/2005/26/2025 CBC (INCL UDES DIFF/ PLT) hemoglobin 13.1 g/dL 13.2-1 7.1 low Not Available [address], [address], 05/26/2025 02:15:43 05/24/2005/26/2025 CBC (INCL UDES DIFF/ PLT) hematocrit 39.3 % 38.5-5 0.0 normal Not Available [address], [address], 05/26/2025 02:15:43 05/24/20 25 05/26/2025 CBC (INCL UDES DIFF/ PLT) MCV 96.1 fL 80.0-1 00.0 normal Not Available [address], [address], 05/26/2025 02:15:43 05/24/20 25 05/26/2025 CBC (INCL UDES DIFF/ PLT) MCH 32.0 pg 27.0-3 3.0 normal Not Available [address], [address], 05/26/2025 02:15:43 05/24/20 25 05/26/2025 CBC (INCL UDES DIFF/ PLT) MCHC 33.3 g/dL 32.0-3 6.0 normal For adult s, a sligh t decre ase in the calcu lated MCHC value (in the range of 30 to 32 g/dL) is most likel y not clini maritza signi gonzales t; linh er, it shoul d be inter prete d with cauti on in [facility] n with other red cell edmond eters and the patie nt's clini zina condi tion. Not Available [address], [address], 05/26/2025 02:15:43 05/24/2005/26/2025 CBC (INCL UDES DIFF/ PLT) RDW 13.4 % 11.0-1 5.0 normal Not Available [address], [address], 05/26/2025 02:15:43 05/24/2005/26/2025 CBC (INCL UDES DIFF/ PLT) platelet count 312 thous and/u L 140-40 0 normal Not Available [address], [address], 05/26/2025 02:15:43 05/24/2005/26/2025 CBC (INCL UDES DIFF/ PLT) MPV 9.6 fL 7.5-12 .5 normal Not Available [address], [address], 05/26/2025 02:15:43 05/24/2005/26/2025 CBC (INCL UDES DIFF/ PLT) absolute neutrophils 4576 cells /uL 1500-7 800 normal Not Available [address], [address], 05/26/2025 02:15:43 05/24/20 25 05/26/2025 CBC (INCL UDES DIFF/ PLT) absolute lymphocytes 1408 cells /uL 850-39 00 normal Not Available [facility] [address], [address], 05/26/2025 02:15:43 05/24/20 25 05/26/2025 CBC (INCL UDES DIFF/ PLT) absolute monocytes 660 cells /uL 200-95 0 normal Not Available [facility] [address], [address], 05/26/2025 02:15:43 05/24/2005/26/2025 CBC (INCL UDES DIFF/ PLT) absolute eosinophils 109 cells /uL 15-500 normal Not Available [facility] [address], [address], 05/26/2025 02:15:43 05/24/2005/26/2025 CBC (INCL UDES DIFF/ PLT) absolute basophils 48 cells /uL 0-200 normal Not Available [facility] [address], [address], 05/26/2025 02:15:43 05/24/20 25 05/26/2025 CBC (INCL UDES DIFF/ PLT) neutrophils 67.3 % normal Not Available [facility] [address], [address], 05/26/2025 02:15:43 05/24/20 25 05/26/2025 CBC (INCL UDES DIFF/ PLT) lymphocytes 20.7 % normal Not Available [facility] [address], [address], 05/26/2025 02:15:43 05/24/2005/26/2025 CBC (INCL UDES DIFF/ PLT) monocytes 9.7 % normal Not Available [facility] [address], [address], 05/26/2025 02:15:43 05/24/20 25 05/26/2025 CBC (INCL UDES DIFF/ PLT) eosinophils 1.6 % normal Not Available [facility] [address] [place], [address], 05/26/2025 02:15:43 05/24/2005/26/2025 CBC (INCL UDES DIFF/ PLT) basophils 0.7 % normal Not Available [address] [address] [place], [address], 05/26/2025 02:15:43 05/24/2005/26/2025 CEA cea <2.0 NG/mL [...] not be inter prete d as absol saxman evide nce of the prese nce or absen ce of disea se. Not Available [facility] [address] [place] [address], [address], 05/26/2025 02:15:43 05/24/2005/26/2025 CA 19-9 Ca 19-9 35 U/mL <34 high This test was perfo rmed using the Sieme ns chemi lumin escen t metho d. Value s obtai rosibel from diffe rent assay metho ds canno t be used inter jackson eay . CA 19-9 level s, regar dless of value , shoul d not be inter prete d as absol saxman evide nce of the prese nce or absen ce of disea se. Not Available [facility] [address] [place] [address], [address], 05/26/2025 02:15:43 05/12/2005/12/2023 XR, abdom en, 2 or more views + XR, chest , 1 view No observ ation record ed. [address] [facility] [address], [place], [address], 05/14/2023 09:45:07 07/18/20 23 07/03/2023 exerc ise stres s test No observ ation record ed. Not Available 2022 12:57:30 Result Notes None recorded. Problems Name Problem SNOMED Code Status Onset Date Resolution Date Notes Provider Name and Address Organization Details Recorded Time Hyperlip idemia 87046130 Completed 03/06/2021 MIKE Soto Attn: Accounting ,[address] [facility], [place], [address] , [facility] 1 11:24:45 Gastroes ophageal reflux disease 690292293 Active Tara Harrisma null, [facility] 6 10:34:12 Conducti ve hearing loss 30444006 Active Tara Harrisma null, [facility] 6 10:34:30 Impotenc e Active Tara Harrisma null, [facility] 6 10:34:40 [facility] hyperten eleanor 00194363 Completed 201108/26/2019 Location : None;Sev erity: Moderate ;Progres s: Stable;A dded By: Karen Milton;Billy d to Current Problems : YES MIKE Soto Attn: Accounting ,[address] [facility], [place], [address] , [facility] 0 11:30:41 Benign essentia l hyperten eleanor 3820283 Completed 201106/23/2012 Location : None;Sev erity: Moderate ;Progres s: Stable;A dded By: Sabine Reich i dd to Current Problems : NO Not Available [facility] 7 07:58:50 Neoplasm of bone 630484656 Completed 201203/29/2013 Location : None;Sev erity: Moderate ;Progres s: Stable;A dded By: Ashanti Wagoner;Add to Current Problems : NO Not Available 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 Location : None;Sev erity: Moderate ;Progres s: Stable;A dded By: Lazara Fuentes;Add to Current Problems : NO Not Available [facility] 7 07:58:49 Senile hyperker atosis [id number] Completed 201209/16/2018 Location : None;Sev erity: Moderate ;Progres s: Stable;A dded By: Brooke Oviedo;Add to Current Problems : NO MIKE Soto Attn: Accounting ,[address] [place], [address] , [facility] 9 14:54:17 Closed fracture of rib 75865677 Completed 201308/26/2019 Location : None;Sev erity: Moderate ;Progres s: Stable;A dded By: Patrick Kovacs;Yusuf dd to Current Problems : NO MIKE Soto Attn: Accounting ,[address] [place], [address] , [facility] 0 11:30:34 Screenin g procedur e Completed 201409/30/2014 Location : None;Sev erity: Moderate ;Progres s: Stable;A dded By: Lazara Fuentes;Add to Current Problems : YES Not Available [facility] 7 07:58:49 Psychose xual dysfunct ion associat ed with inhibite d libido 084808178 Completed 201408/26/2019 Location : None;Sev erity: Moderate ;Progres s: Stable;A dded By: Lazara Fuentes;Add to Current Problems : YES MIKE Soto Attn: Accounting ,[address] [place], [address] , [facility] 0 11:31:36 Benign essentia l hyperten eleanor 8676326 Active 2014 Location : None;Sev erity: Moderate ;Progres s: Stable;A dded By: Lazara Fuentes;Add to Current Problems : YES Not Available [facility] 7 07:58:49 Middle ear conducti ve hearing loss 16079139 Completed 201408/26/2019 Location : None;Sev erity: Moderate ;Progres s: Stable;A dded By: Marycruz Reich i;Yusuf dd to Current Problems : YES MIKE Soto Attn: [facility] ,[address] [place], [address] , [facility] 0 11:31:26 Neoplasm of uncertai n behavior of skin 31959134 Completed 201404/07/2015 Location : None;Sev erity: Moderate ;Progres s: Stable;A dded By: Lazara Fuentes;Add to Current Problems : YES Not Available [facility] 7 07:58:49 Lumbar sprain 969990350 Completed 201404/07/2015 Location : None;Sev erity: Moderate ;Progres s: Stable;A dded By: Lazara Fuentes;Add to Current Problems : YES Not Available [facility] 7 07:58:49 Neoplasm of uncertai n behavior of skin 65447019 Completed 201403/16/2015 Location : None;Sev erity: Moderate ;Progres s: Stable;A dded By: Karen Milton;Ad d to Current Problems : YES Not Available [facility] 7 07:58:50 Diarrhea 24499410 Completed 201406/02/2015 Location : None;Sev erity: Moderate ;Progres s: Stable;A dded By: Nelda Peña; Add to Current Problems : YES Not Available [facility] 7 07:58:50 Family history of malignan t neoplasm of thoracic cavity structur e 661574983 Active 2014 Location : None;Sev erity: Moderate ;Progres s: Stable;A dded By: Lazara Fuentes;Add to Current Problems : YES Not Available [facility] 7 07:58:50 Prostate specific antigen above referenc e range 073405106 Completed 201409/08/2015 Location : None;Sev erity: Moderate ;Progres s: Stable;A dded By: Lazara Fuentes;Add to Current Problems : YES Not Available [facility] 7 07:58:50 Acute sinusiti s 56913661 Completed 201409/09/2015 Location : None;Sev erity: Moderate ;Progres s: Stable;A dded By: Brooke Oviedo;Add to Current Problems : YES Not Available [facility] 7 07:58:50 Screenin g for malignan t neoplasm of colon Active 2015 Location : None;Sev erity: Moderate ;Progres s: Stable;A dded By: Lazara Fuentes;Add to Current Problems : YES Not Available [facility] 7 07:58:50 Abnormal weight loss 745573704 Completed 201509/16/2018 Location : None;Sev erity: Moderate ;Progres s: Stable;A dded By: Marycruz Reich i;Yusuf dd to Current Problems : NO MIKE Soto Attn: Accounting ,[address] [place], [address] , [facility] 9 14:54:12 Contact dermatit is due to plants, except food Completed 201502/03/2016 Location : None;Sev erity: Moderate ;Progres s: Stable;A dded By: Marycruz Reich i;Yusuf dd to Current Problems : YES Not Available [facility] 7 07:58:51 Problem Notes Documentation Provider Name and Address Organization Details Recorded Time [employer] Consult Note : This document (1 of 1) was received from [email or web address] on 04/07/2025 through Direct Message along with the following message body content: Patient Name: PONCE GIBSON. Patient : 1945. [place] . [place] [facility] 04/08/2025 14:55:38 Procedures Surgical History Date Name Laterality Status Provider Name and Address Organization Details Recorded Time 018 Knee arthroscopy/surger y completed Macey Zhou RN [place] [facility] 06/22/2018 12:49:40 Hernia Repair completed Marycruz Rodriguez [facility] 11/13/2017 13:39:13 Cholecystectomy completed Marycruz Rodriguez [facility] 11/13/2017 13:39:07 Imaging Results None recorded. Procedure Notes None recorded. Medical Equipment None Reported. Allergies Allergen ID Allergen Name Allergen Category Reaction Reaction Severity Criticality Documentation Date Start Date Code Code System Note Provider Name and Address Organization Details Recorded Time 576808 Paxlovid medicatio n diarrhea Not available Not available 12/18/2021 Jacklyn diallo [place] - [facility] 14:03:15 Medications Name Sig Start Date [...] ) by mouth daily 08/01 completed RxNorm: 263139;A llow Substitu tion: True Not Available Not [...] ) by mouth qam 07/25 completed RxNorm: 584766;A llow Substitu tion: True Not Available Not [...] e 50 mcg/actua tion nasal spray,jenny pension [employer] 1 spray every day by intranas al route. 09/16 completed Not Available Not Available Not Available doxycycli ne hyclate 100 mg tablet TAKE 1 TABLET BY MOUTH TWICE DAILY FOR 7 DAYS 05/29 completed Not Available Not Available Not Available dicyclomi ne 10 mg capsule Take 1 cap po qid prn 07/10 completed RxNorm: 735596;A llow Substitu tion: True Not Available Not [...] mass index (BMI) Body weight Oxygen saturation Heart rate Body temperature Systolic And Diastolic Provider Name and Address Organization Details Last Updated DateTime 5 182.88 cm 23.1 kg/m2 48016.5 g 96 % 72 /min 98.1 [degF] 109/70 mm[Hg] Greta Lugo MA [facility] 5 10:11:10 Date Recorded Body height Body mass index (BMI) Body weight Body temperature Heart rate Oxygen saturation Systolic And Diastolic Provider Name and Address Organization Details Last Updated DateTime 4 182.88 cm 23.1 kg/m2 72147.5 g 98.5 [degF] 63 /min 96 % 108/65 mm[Hg] Blessing Montelongo MA [facility] 4 14:39:44 Date Recorded Body weight Body temperature Heart rate Oxygen saturation Body mass index (BMI) Body height Systolic And Diastolic Provider Name and Address Organization Details Last Updated DateTime 3 53092.8 9 g 97.9 [degF] 85 /min 96 % 23.3 kg/m2 182.88 cm 102/62 mm[Hg] Brian Ventura MA [facility] 3 10:06:39 Date Recorded Body height Body mass index (BMI) Body weight Body temperature Oxygen saturation Heart rate Systolic And Diastolic Provider Name and Address Organization Details Last Updated DateTime 5 182.88 cm 22.8 kg/m2 69244.5 2 g 97.9 [degF] 97 % 66 /min 119/65 mm[Hg] Guadalupe Gaming MA [facility] 5 11:30:19 Date Recorded Body height Body mass index (BMI) Body weight Body temperature Oxygen saturation Heart rate Systolic And Diastolic Provider Name and Address Organization Details Last Updated DateTime 3 182.88 cm 22.8 kg/m2 51121.2 2 g 97.3 [degF] 98 % 78 /min 120/71 mm[Hg] Greta Lugo MA [facility] 3 10:35:35 Social History Question Answer Notes LastModified by Organizat ion Details LastModified Time Tobacco Smoking Status Never Smoker Amalia Harman [facility] 09/16/2018 14:29:28 Do You Have An Advance [...] 7 Days, How Much Pain Have You Ethel? None Information not available 03/06/2021 In General, [...] Past 7 Days, How Often Have You Ethel Sleepy In The Daytime? Rarely Information not [...] anxious, or unable to sleep at night)? [id number] Information not available 03/06/2021 Family History Relationship [...] 1 completed MIKE Soto Attn: Accounting,[address] [place], [place], [address] [place] [address], [place] [facility] 04/29/2023 09:22:48 COVID-19, mRNA, LNP-S, PF, 30 mcg/0.3 mL dose 1 completed MIKE Soto Attn: Accounting[address] [place], [place], [address] [place] [address], [place] [facility] 04/29/2023 09:22:48 COVID-19, mRNA, LNP-S, PF, 30 mcg/0.3 mL dose 1 completed MIKE Soto Attn: Accounting[address] [place], [address] [place] [address], [place] [facility] 04/29/2023 09:22:48 Influenza, split virus, quadrivalent, preservative 7 completed Not Available [facility] 08/07/2019 02:33:02 Tdap 5 completed Not Available [facility] 05/24/2025 10:44:19 Tdap 8 completed Not Available [facility] 08/07/2019 02:45:24 Influenza, split virus, quadrivalent, preservative 8 completed Not Available [facility] 08/07/2019 02:51:07 Influenza, split virus, quadrivalent, preservative 0 completed CHELE [place], [place] [facility] 08/26/2019 12:10:01 Tdap 6 completed Tara diallo, [place] [facility] 07/01/2016 10:36:30 Pneumococcal conjugate PCV 13 5 completed MIKE Soto Attn: Accounting[address] [place], [place], [address] [place] [address], [facility] 04/29/2023 09:22:48 pneumococcal polysaccharide PPV23 4 completed MIKE Soto Attn: Accounting[address] [facility], [place], [address], [facility] 04/29/2023 09:22:48 Influenza, split virus, trivalent, preservative 2 completed Not Available [facility] 08/21/2019 02:11:43 Influenza, split virus, trivalent, preservative 3 completed Not Available [facility] 08/21/2019 02:11:43 Influenza, split virus, trivalent, preservative 4 completed Not Available [facility] 08/21/2019 02:11:43 Influenza, split virus, quadrivalent, preservative 5 completed Not Available [facility] 08/21/2019 02:11:43 Influenza, high-dose, trivalent, PF 4 completed Blessing Montelongo MA null, [place] - [facility] 04/15/2024 16:16:11 Influenza, high-dose, trivalent, PF 5 completed Guadalupe Gaming MA null, [place] [facility] 05/24/2025 13:20:52 Pneumococcal conjugate PCV20, polysaccharide [id number] conjugate, adjuvant, PF 5 completed Guadalupe Gaming [place], [place] [facility] 05/24/2025 13:20:53 Past Encounters Encounter ID Performer Location Encounter Start Date Encounter Closed Date Diagnosis/Indication Diagnosis SNOMED-CT Code Diagnosis ICD10 Code Diagnosis IMO Codes Diagnosis Note [id number] [facility] [address] [place] [address] 07/01/2016 12:33:00 07/03/2016 15:22:59 Upper respiratory infection 95804653 J06.9 [id number] Jacklyn Redd [facility] [address] [place] [address] 07/12/2016 10:09:57 07/16/2016 11:48:46 Screening for malignant neoplasm of prostate 581165972 Z12.5 Family his tory of malignant neoplasm 816705515 Z80.9 Essential hypertension 78720228 I10 Hyperlipidemia 20324729 E78.5 [id number] Jacklyn Redd [facility] [address] [place] [address] 07/23/2016 09:42:12 07/24/2016 11:36:06 Administration of influenza vaccine 60785274 Z23 [id number] Jacklyn Redd [facility] [address] [place] [address] 07/25/2017 11:15:42 07/25/2017 15:47:19 Acute sinusitis 71501688 J01.90 [id number] Chago Fuentes [facility] [address] [place] [address] 12/08/2017 16:43:28 12/09/2017 10:45:28 Gastroesophageal reflux disease 963871576 K21.9 Administra tion of diphtheria, pertussis, and tetanus vaccine 418130485 Z23 Adult heal th examination 228128667 Z00.00 Pain in thumb 071483427 M79.643 Primary er ectile dysfunction 662868094 N52.9 [id number] Chago Fuentes [facility] [address] [place] [address] 12/12/2017 09:04:47 12/16/2017 09:12:47 Benign essential hypertension 8938118 I10 Hyperlipidemia 50646873 E78.5 Adult heal th examination 019507033 Z00.00 Screening for malignant neoplasm of prostate 235645376 Z12.5 [id number] Chago Fuentes [facility] [address] [place] [address] 06/22/2018 12:12:32 06/23/2018 11:18:24 Benign essential hypertension 6080197 I10 Gastroesop hageal reflux disease 235568564 K21.9 Administra tion of influenza vaccine 56699155 Z23 Screening for malignant neoplasm of prostate 437659218 Z12.5 Active or passive immunization 881975542 Z23 Sinusitis 12422053 J32.9 Impacted c erumen of bilateral ears 8993076340 734728 H61.23 Use debrox daily for two weeks.Irri gate daily [id number] Jacklyn Redd [facility] [address] [facility] [address] [place] [address] 09/16/2018 14:10:17 09/17/2018 13:30:34 Lacunar infarction 153539325 I63.81 no significan t sequelae, but one visit to neurology for anticoag recommenda tions vs none to be determined . Bilateral tinnitus 33606 65358 102 H93.13 continued f/u with audiology as discussed Benign par oxysmal positional vertigo 500758673 H81.11 Impacted c erumen of bilateral ears 7937941735 055061 H61.23 Anemia 275177837 D64.9 [id number] Jacklyn Redd [facility] [address] [facility] [address] [place] [address] 08/26/2019 10:53:41 08/26/2019 12:28:08 Adult health examination 204300358 Z00.00 Health Risk Assessment collected and reviewed Hyperlipid emia screening 758019773 Z13.220 Screening for malignant neoplasm of prostate 232344339 Z12.5 Family his tory of malignant neoplasm of pancreas 311076640 Z80.0 per patient request sed rate to be added. Administra tion of influenza vaccine 03948419 Z23 [id number] Jacklyn Redd [facility] [address] [facility] [address] [place] [address] 02/03/2020 11:07:40 02/03/2020 13:38:27 Allergic contact dermatitis 409302544 L23.9 Lacunar infarction 64595 8000 I63.81 [id number] Jacklyn Redd [facility] [address] [facility] [address] [place] [address] 02/14/2020 14:50:58 02/14/2020 16:00:50 Anemia 302612554 D64.9 Bleeding i nternal hemorrhoids 78899684 K64.8 keep stool very soft, dietary measures and miralax discussed, sitz baths and witch wing pads prn. Prostate s pecific antigen above reference range 055378419 R97.20 saw urology and PSA has dropped Abnormal weight loss 267 593008 R63.4 reporting 10 pounds since last in the office, will see him in the office in 3 weeks when due for cbc repeat [id number] Jacklyn Redd [facility] [address] [place] [address] 03/06/2020 14:27:33 03/06/2020 17:24:35 Anemia 835254174 D64.9 Unintentio nal weight loss 737410860 R63.4 Family his tory of malignant neoplasm of pancreas 690370831 Z80.0 [id number] Jacklyn Redd [facility] [address] [place] [address] 03/29/2020 13:05:31 03/30/2020 11:45:05 Low back pain 716888814 M54.5 likely muscle bruise from blunt trauma. If he notices ANY blood or dark urine, he will come in for a urine dip. If no better let us know. No golf until pain resolved [id number] Jacklyn Redd [facility] [address] [place] [address] 03/06/2021 10:18:52 03/06/2021 15:08:55 Gastroesophageal reflux disease 188314217 K21.9 Adult heal th examination 404376152 Z00.00 Health Risk Assessment collected and reviewed Benign ess ential hypertension 2986661 I10 stable today Screening for malignant neoplasm of prostate 526533832 Z12.5 sees urology yearly and having every 6 months PSAs and last 2 were in the 3s. No symptoms Family his tory of malignant neoplasm of pancreas 465044245 Z80.0 Screening for malignant neoplasm of colon 750688378 Z12.11 discussed cologaurd, not interested currently, had hemoccult last year and was negative Pain of bi lateral hip joints 6393211819 3574266 M25.551 M25.552 will call when ready for referral to ortho. Not yet ready [id number] MIKE Soto [facility] [address] [place] [address] 12/12/2021 10:37:36 12/12/2021 15:13:06 COVID-19 718619568 U07.1 Lots of rest and fluids, tylenol or ibuprofen for headaches or body aches. Monitor for return of fever, extreme weakness or SOB. Call if no better or worsening symptoms. Isolation rules reviewed. [id number] Jacklyn Redd [facility] [address] [place] [address] 12/18/2021 12:31:14 12/18/2021 17:07:01 COVID-19 814604342 U07.1 Nausea 091370579 R11.0 [id number] Jacklyn Redd [facility] [address] [place] [address] 03/19/2022 10:40:30 03/20/2022 13:53:52 Adult health examination 952962639 Z00.00 Health Risk Assessment collected and reviewed Gastroesop hageal reflux disease 511713990 K21.9 only take omeprazole as needed, like with late large meals and prn rarely Benign ess ential hypertension 3629715 I10 stable today History of anemia 333850 002 Z86.2 Family his tory of malignant neoplasm of pancreas 578829647 Z80.0 requests yearly CEAs for FH GI cancers. Screening for malignant neoplasm of prostate 440118844 Z12.5 sees urology yearly and having every 6 months PSAs and last 2 were in the 3s and just another one Juan Manuel and 3.6. No symptoms Administra tion of viral vaccine 50404309 Z23 would like RX for shingles vaccine [id number] Rene Mae [facility] [address] [place] [address] 04/29/2023 09:40:34 04/30/2023 14:41:53 Adult health examination 462130985 Z00.00 Health Risk Assessment collected and reviewed Administra tion of influenza vaccine 25749587 Z23 will get at [facility] when not coughing. Administra tion of pneumococcal vaccine 87602185 Z23 will be due next year 2023 Anemia 521805254 D64.9 Screening for malignant neoplasm of prostate 951782817 Z12.5 sees urology PSA 3.6, will get urology records for our chart. Hyperlipid emia screening 719681041 Z13.220 Family his tory of malignant neoplasm of pancreas 176566734 Z80.0 requests yearly CEAs and sed rate for FH GI cancers. Postviral cough 87962392 4 R05.3 declines liquid cough medication . Will give codeine tablet. Normal lung exam, COVID 2 weeks ago. Dyspnea on exertion 6084 5006 R06.09 [place] the [place] the [place] mowing the grass, which is out of the norm for him, no CP or nausea. Will refer to cardiology for stress testing, has never had one in the past. [id number] Rene Mae [facility] [address] [place] [address] 05/29/2023 10:20:52 05/29/2023 15:45:00 Gastroesophageal reflux disease 624039132 K21.9 only take omeprazole as needed, like with late large meals and prn rarely Right lowe r zone pneumonia 587588753 J18.1 Was minimal finding, possible atelectasi s only and symptom free with normal exam, no repeat CXR needed. External hemorrhoids 239 15731 K64.4 only aggravated with constipati on and/or diarrhea. Unintentio nal weight loss 853760283 R63.4 CT scan abd looks normal 2019 with initial work up. Labs reviewed all normal. Boost for protein suggested. Anemia 112833880 D64.9 with much fatigue post pneumonia and COVID, will give B12 injection, won't hurt. Start Centrum Silver daily with his lack of fruits and veggies in his diet. Will call if not feeling back to his normal energy level or if weight loss continues [id number] Verona Turner [facility] [address] [place] [address] 04/15/2024 14:27:30 04/15/2024 16:28:43 Gastroesophageal reflux disease 021435781 K21.9 only take omeprazole as needed, like with late large meals and prn rarely Adult heal th examination 009477067 Z00.00 Health Risk Assessment collected and reviewed Benign ess ential hypertension 1452356 I10 stable today, has a huge stock pile of metoprolol and doesn't need any. Screening for malignant neoplasm of prostate 777875512 Z12.5 sees urology PSA 3.3, will get urology records, Dr. Arnold at [place] Pre-surger y evaluation 067217847 Z01.[address] eSnior last June was fine. Hyperlipid emia screening 576058691 Z13.220 Ate today, cholestero l is unbelievab ly low. Administra tion of influenza vaccine 92499746 Z23 Family his tory of malignant neoplasm of pancreas 225552639 Z80.0 requests yearly CEAs and sed rate for FH GI cancers. [id number] Verona Turner [facility] [address] [facility] [address] [place] [address] 12/14/2024 09:40:18 12/15/2024 10:29:00 Diarrhea 14318760 R19.7 70734114 Black feces 389025846 K9 2.1 611374 intermitte ntly with history of anemia, will check FIIT test and labs, if anemia or iron deficiency has worsened will refer for EGD and colonoscop y. Will start daily metamucil and probiotic, avoid gas and diarrhea producing foods. [id number] Verona Turner [facility] [address] [facility] [address] [place] [address] 05/24/2025 10:43:21 05/24/2025 16:05:49 Adult health examination 844779368 Z00.00 Health Risk Assessment collected and reviewed. FIT test negative in November 2024 and colonoscop y with [facility] normal 2015 he declines further colorectal cancer screening, tetanus 12/05, zostavax completed, needs updated prevnar and influenza, recommende d seasonal covid and rsv. Hep C screening complete 06/19/21, offered AAA screening. Screening for malignant neoplasm of prostate 904693506 Z12.5 833703 sees urology PSA 3.3 last reported, will get urology records, Dr. Arnold at [place] 3.1 this year. REceived records Benign ess ential hypertension 4978955 I10 stable today, has a huge stock pile of metoprolol and doesn't need any. Gastroesop hageal reflux disease 626257196 K21.9 Having pretty consistent dyspepsia where he has very bloated full feeling in his epigastriu m after lunch or dinner, gets relief with TUMS, also with this ST with soda and intermitte nt hoarseness . Agrees to EGD. Influenza vaccination given 4879554926 9109 Z23 42200002 Requires v accination against Streptococcus pneumoniae 6625644325 Z23 592705 Nausea 972742560 R11.0 Abdominal aortic aneurysm screening 386418311 Z13.6 809752 Family his tory of malignant neoplasm of pancreas 495676580 Z80.0 514323 requests yearly CEAs and sed rate for FH GI cancers. Will add this year a Ca 19-9 as well. Hoarse 32729142 R49.0 713107 with off and on ST rena with carbonatio n likely. EGD will cover the vocal cord visualizat ion Recurrent bleeding of nose 3416025088 102 R04.0 17792675 3 days in row two weeks ago, then once last week, none since then. Left side. Resolved after 10 minutes max. Saline NS daily recommende d, exam normal today. Impacted c erumen in left ear 0115275625 725059 H61.22 5177766 successful ear wash. Health Concerns Section Related Observation LastModified by Organization Detai ls LastModified Time None Recorded Concern Status LastModified by Organization Details LastModified Time None Recorded Advance Directives Directive Y: Payers Insurance Date Sequence Insurance Name Policy Number Policy Mckeon Covered Member ID Mckeon Member ID Guarantor Name 05/21/2025 [place] - [place] Ponce Gibson [id number] Ponce Gibson 12/15/2024 1 [place] - MEDICARE-[place] [address] [place] BOARD (MEDICARE) Ponce Gibson [id number] Ponce Gibson 05/21/2025 1 [facility] (MEDICARE REPLACEMENT/A DVANTAGE - PPO) [id number] Ponce Gibson [id number] Ponce Gibson 12/15/2024 2 [employer] (MEDICARE SUPPLEMENT) Ponce Gibson [id number] Ponce Gibson 12/15/2024 1 [place] [employer] - MEDICARE-[address] [facility] (MEDICARE) P[place]c Gibson [id number] Ponce Gibson 12/15/2024 2 [place] [facility] FQ[facility] Ponce Gibson [id number] Ponce Gibson 12/15/2024 1 [place] [employer] - MEDICARE-[address] [facility] (MEDICARE) Ponce Gibson [id number] Ponce Gibson Notes Date Note Type Note Provider Name and Address Organization Details Recorded Time 3 text/html MAW 2Reported by PatientSocial/Behavioral HistoryFor diet and nutrition, patient reportshealthy diet. [...] when trying to pick them up.Functional AbilityFor vision, patient reportsno vision problems. For activities [...] past year,no fall since last visit, andno dizziness/vertigo. For home safety, patient reportsno unsafe gretel hazzards,no unsafe stairs,working smoke/co detectors,practicing 'safer sex',no fire arms,has hand bars in the bathroom/shower, andgood lighting in the home. For hearing, (pt says his hearing is going away a little, he has hearing aids but does not wear them).Tested Positive for COVID 20 days ago. No [...] had cataract surgery 04/26 and wasn't coughing then.ROS as noted in the HPI MIKE Soto Attn: Accounting,[address] [facility], [place], [address], [facility] 04/29/2023 14:01:19 3 text/html FatigueReported by PatientHPIFor severity, patient reportschange in exercise habits (a little)andchanges in normal activities (a little)but reportsnormal sleep patterns. For modifying factors, patient reportsnot taking vitaminsbut reportsno new stressors in life. For associated symptoms, patient reportssnoringandrecent change in weight (pt wants to talk about this)but reportsno drug/alcohol withdrawal,no depression,no anxiety, andno sleep disturbances. For quality, patient reportscontinuous. For duration, patient reportsconstant. For timing, patient reportsactual date: (pt said that after he had covid in mar.).Doesn't eat a lot of fruits or veggies, wondering about vitamins.ROS as noted in the HPI pt said that his cough is gone. [...] then this pneumonia diagnosis. MIKE Soto Attn: Accounting,[address] [facility], [place], [address], [place] [facility] 05/29/2023 11:27:33 4 text/html Generic HPI TemplateReported by Patientneeds updated H&P for podiatric surgery with Dr. gelacio Mack at [facility]. Saw cardiology last year 07/12 and had stress test at [facility] with Dr. Senior. MARY 2Reported by PatientSocial/Behavioral HistoryFor diet and nutrition, patient reportshealthy diet. [...] when trying to pick them up.Functional AbilityFor hearing, patient reportsno loss of hearing. For vision, patient reportsno vision problems. For [...] past year,no fall since last visit, andno dizziness/vertigo. For home safety, patient reportsno unsafe gretel hazzards,no unsafe stairs,working smoke/co detectors,practicing 'safer sex',no fire arms,has hand bars in the bathroom/shower, andgood lighting in the home.ROS as noted in the HPI MIKE Soto Attn: Accounting,[address] [facility], [place], [address], [facility] 04/15/2024 15:30:21 5 text/html DiarrheaReported by PatientHPIFor quality, patient reportssoftandincreased quantitybut reportsintermittent. For onset/timing, patient reportsworse in the morningandworse in the afternoonbut reports1-3 times a day. For aggravating factors, patient reportseating (sometimes). For associated symptoms, patient reportsblack or tarry stools (maybe)andweakness (sometimes)but reportsno abdominal pain,no excess gas,no fever,no rash,no joint pain,no weight loss,no nausea,no vomiting,no heartburn,no blood in stool,no nutrient deficiency, andno fecal incontinence. For severity, patient reportsmoderate. For duration, patient reportspresent for 2-4 weeks. For context, patient reportsno one else with similar symptoms,no recent camping,no recent picnic,no possible food sources,no recent travel,no well water, andno family history of colon polyps or cancer(pt said that the diarrhea happens once every month pt said that he does night a regular bowel movement but every three days and then he said that he has loose stools for about a couple days). For alleviating factors, patient reportsotc medication.colonoscopy 01/08/16 normal, repeat in 10 years.No weight loss.No fevers, no watery stool. Has a first formed stool about every 2-3 days, followed by several soft stools. No abd cramps or pain at all. Episodes of black stool at the end of his bout. No pepto bismol. Does take an antidiarrhea pill on occasion.ROS as noted in the HPI MIKE Soto Attn: Accounting,[address] [place], [address], [facility] 12/14/2024 16:38:17 5 text/html MAW 2Reported by PatientSocial/Behavioral HistoryFor diet and nutrition, patient reportshealthy diet. [...] past year,no fall since last visit, andno dizziness/vertigo.Feels his lungs burning on occasion out in [...] noted in the HPI MIKE Soto Attn: Accounting,[address] [facility], [place], [address], [facility] 05/24/2025 14:10:12
--- OUTSIDE RECORDS SUMMARY | 2025-06-13 08:06 | XMS_ITS | Clinical Summary ---
Author Organization [facility] Address [facility] [place] [address] Care Team Providers Care Brands Editor Name Role Phone ParentGuadalupe Primary Care Provider [phone] Allergies No known active allergies Medications metoprolol succinate ER (TOPROL-XL) 25 MG 24 hr tablet Take 1 tablet (25 mg total) by mouth nightly. Active omeprazole (PRILOSEC) 40 MG capsule Take 1 capsule (40 mg total) by mouth daily as needed (heartburn). Active HYDROcodone-smiley taminophen (NORCO) 5-325 MG tabletIndicatio ns:Acute Pain < 7 Day Supply Take 1 tablet by mouth every 6 (six) hours as needed for Pain. Indications: Acute Pain < 7 Day Supply 20 tablet 04/27/2024 Active ibuprofen (MOTRIN) 800 MG tablet Take 1 tablet (800 mg total) by mouth every 8 (eight) hours as needed for Pain. 30 tablet 04/27/2024 Active Active Problems No known active problems Social History Tobacco Use Types Packs/Day Years Used Date Smoking Tobacco: Never Smokeless Tobacco: Never Tobacco Cessation:Counseling Given: Not Answered Alcohol Use Standard Drinks/Week Comments Never 0 (1 standard drink = 0.6 oz pur e alcohol) Sex and Gender Information Value Date Recorded Sex Assigned at Not on file Legal Sex Male 8:23 PM CDT Gender Identity Not on file Sexual Orientation Not on file Last Filed Vital Signs Vital Sign Reading Time Taken Comments Blood Pressure 131/71 04/27/2024 9:55 AM CDT Pulse 61 04/27/2024 9:55 AM CDT Temperature 36.2 C (97.1 F) 04/27/2024 9:55 AM CDT Respiratory Rate 18 04/27/2024 9:55 AM CDT Oxygen Saturation 97% 04/27/2024 9:55 AM CDT Inhaled Oxygen Concentration - - Weight 77.1 kg (169 lb 15.6 oz) 04/27/2024 6:45 AM CDT Height 182.9 cm (6') 04/27/2024 6:45 AM CDT Body Mass Index 23.05 04/27/2024 6:45 AM CDT Plan of Treatment Health Maintenance Due Date Last Done Comments Hepatitis C 1963 Zoster Vaccines (1 of 2) 1997 Annual Medicare Wellness Visit 01/12/2012 RSV Immunization or 60+ Years (1 - 1-dose 75+ series) 2022 COVID-19 Vaccine (3 - 2024- season) 2025 12/10/2020, 11/19/2020 Influenza Adult (#1) 2025 04/15/2024, 08/26/2019, 06/22/2018, Additional history exists DTaP, Tdap and Td Vaccines (3 - Td or Tdap) 12/09/2027 12/08/2017, 05/20/2006 Pneumococcal Vaccine: 50+ Years Completed 07/10/2015, 06/27/2014 Hepatitis A Vaccines Aged Out No long er eligible based on patient's age to complete this topic Meningococcal B Vaccine Aged Out No l onger eligible based on patient's age to complete this topic Meningococcal Vaccine Aged Out No martínez betina eligible based on patient's age to complete this topic RSV Immunizations Under 20 Months Aged Out No longer eligible based on patient's age to complete this topic Insurance [facility] [place] [address] Advance Directives * Full Code (Latest Code Status on File) Date Activated Date Inactivated Comments 04/27/2024 10:05 AM 04/27/2024 12:05 PM Care Teams Brands Editor Relationship Specialty Start Date End Date ParentGuadalupe PA PCP - General FAMILY PRACTICE 04/27/24
== END 2025-06-13 07:57 | disposition home or self-care (01) ==
PROVIDERS: PCP Physician Assistant; Visit Provider Physician Assistant
DX: Z13.6 Encounter for screening for cardiovascular disorders (principal)
CPT/HCPCS: 76706

== ENCOUNTER 2025-06-20 14:38 | Outpatient (CLI) | payer MEDICARE, SELFPAY ==
--- NOTE | ~2025-06-20 | CT_ITS ---
CT abdomen pelvis w con INDICATION:epigastric fullness . COMPARISON: None. TECHNIQUE: Axial images of the abdomen and pelvis were obtained following infusion of 100 mL Isovue 300. Dose optimization technique was utilized. FINDINGS: The lung bases are clear. The liver parenchyma is unremarkable. No intrahepatic mass or ductal dilatation is evident. The patient has had a cholecystectomy. The pancreas and spleen are normal in appearance. The adrenal glands are symmetric in size. The kidneys demonstrate symmetric uptake and excretion of contrast. No cystic mass is evident. There is no solid mass. There is no hydronephrosis. Nonspecific thickening of the gastric wall may represent gastritis. Bowel loops are normal in caliber. No bowel obstruction or pneumatosis. The appendix is normal in appearance. The bladder and rectum are normal. Enlarged prostate gland measuring 6.4 x 6.4 cm. There are fat-containing inguinal hernias bilaterally. No free intraperitoneal fluid or air is evident. There is no significant retroperitoneal lymphadenopathy. The aorta, visceral vessels and renal arteries demonstrate normal caliber and patency. The lower thoracic and lumbar vertebrae are in normal alignment. IMPRESSION: Thickened gastric wall may represent gastritis. Fat-containing inguinal hernias. Prostatomegaly. All CT scans at this facility are performed using low dose modulation techniques as appropriate to perform exam including the following: automated exposure control; use of iterative reconstruction technique; adjustment of the mA and/or kV according to patient size (this includes techniques or standardized protocols for targeted exams where dose is matched to indication/reason for exam). Reviewed, dictated and finalized at location [facility] IMPRESSION: Thickened gastric wall may represent gastritis. Fat-containing inguinal hernias. Prostatomegaly. All CT scans at this facility are performed using low dose modulation techniqu es as appropriate to perform exam including the following: automated exposure c ontrol; use of iterative reconstruction technique; adjustment of the mA and/or kV according to patient size (this includes techniques or standardized protocol s for targeted exams where dose is matched to indication/reason for exam).
[2025-06-20 15:17] LABS: Estimated Glomerular Filt Rate > 60
--- OUTSIDE RECORDS SUMMARY | 2025-06-20 15:37 | XMS_ITS | Continuity of Care Document ---
Author Organization [facility] Address [address] [place] [address] Assessment No assessment recorded. Plan of Treatment Reminders Order Date Submit Date Provider Last Modified By Organization Details Last Modified Time Details Appointments MEDICARE WELLNESS VISIT 2025 10:00A MIKE Pandya Not available Not available Not available Lab carcinoem bryonic Ag, quant, serum or plasma 2024 025 [facility], [address], [place], [address], 05/26/2025 02:15:43 cancer Ag 19-9, serum or plasma 2024 025 [facility], [address], [place], [address], 05/26/2025 02:15:44 CBC w/ auto diff 2024 025 [facility], [address], [place], [address], 05/26/2025 02:15:43 CMP, serum or plasma 2024 [address], [place], [address], 05/26/2025 02:15:42 lipid panel, serum 2024 025 [facility], [address], [place], [address], 05/26/2025 02:15:42 Referral gastroent erologist referral 2024 [facility], [address], [address], [place], [address], 05/31/2025 16:11:44 Procedures cerumen removal (PROC) 2024 wandres Not available 05/24/2025 13:29:35 Surgeries None recorded. Imaging US, screening for abdominal aortic aneurysm 2024 [facility] (Imaging), [address], [place], [address], 06/13/2025 13:30:28 Medication Orders ondansetr on HCl 4 mg tablet 2024 [facility], [address], [address], [place], [place], [id number], 05/24/2025 12:05:38 Patient TargetsNo targets recorded. Patient Instructions Encounter Date Encounter Id Patient Instructions Last Modified By Organization Details Last Modified Time 05/24/2025 [id number] advance care planning: care instructions Not available 05/24/2025 12:05:33 preventing falls : care instructions Not available 05/24/2025 12:05:33 Medicare Wellnes s Preventive Checklist Not available 05/24/2025 12:05:33 eating healthy foods: care instructions Not available 05/24/2025 12:05:33 AD8 Dementia Screening Interview Not available 05/24/2025 12:05:33 Reason for Referral Physician Representative Referral for Gastroesophageal reflux disease Referring Physician: Guadalupe Ware, Family Medicine, Encounter Date: 05/24/2025 Results Created Date Observation Date Name Description Value Unit Range Abnormal Flag Note LastModifiedBy Organization Detail LastModifiedTime 05/24/2005/26/2025 LIPID PANEL , STAND KIMBERLYN cholesterol, total 159 mg/dL <200 normal Not Available [facility] [address] [place], [address], 05/26/2025 02:15:42 05/24/2005/26/2025 LIPID PANEL , STAND KIMBERLYN HDL cholesterol 58 mg/dL > or = 40 normal Not Available [facility] [address] [place], [address], 05/26/2025 02:15:42 05/24/2005/26/2025 LIPID PANEL , STAND KIMBERLYN triglyceride s 67 mg/dL <150 normal Not Available [facility] [address] [place], [address], 05/26/2025 02:15:42 05/24/2005/26/2025 LIPID PANEL , STAND KIMBERLYN LDL-choleste rol 86 mg/dL _(zina c) normal Refer ence range : <100 Catie able range <100 mg/dL for prima ry preve ntion ; <70 mg/dL for patie nts with CHD or diabe tic patie nts with > or = 2 CHD risk facto rs. LDL-C is now calcu lated using the Magaly ross-Hop francisco polanco n, which is a valid ated novel chilo mauro accur acy than the Fried gene equat ion in the estim ation of LDL-C . Magaly ross SS et al. BRIT. 2013; 310(1 9): 2061- 2068 (http ://ed ucati on.Qu Zuleika saleh [employer]. com/f aq/FA Q164) Not Available [facility] [address] [place], [address], 05/26/2025 02:15:42 05/24/2005/26/2025 LIPID PANEL , STAND KIMBERLYN chol/HDLC ratio 2.7 (calc ) <5.0 normal Not Available [facility] [address] [place], [address], 05/26/2025 02:15:42 05/24/20 05/26/2025 LIPID PANEL , STAND KIMBERLYN non HDL cholesterol 101 mg/dL _(zina c) <130 normal For patie nts with diabe lazaro plus 1 major ASCVD risk facto r, treat ing to a non-H DL-C goal of <100 mg/dL (LDL- C of <70 mg/dL ) is [facility]. Not Available [address] [place], [address], 05/26/2025 02:15:42 05/24/20 25 05/26/2025 COMPR EHENS MATTHEW METAB OLIC PANEL glucose 86 mg/dL 65-99 normal Fasti ng refer ence inter mike Not Available [address], [address], 05/26/2025 02:15:42 05/24/20 25 05/26/2025 COMPR EHENS MATTHEW METAB OLIC PANEL urea nitrogen (BUN) 21 mg/dL 7-25 normal Not Available [address], [address], 05/26/2025 02:15:42 05/24/20 25 05/26/2025 COMPR EHENS MATTHEW METAB OLIC PANEL creatinine 0.88 mg/dL 0.70-1 .28 normal Not Available [address], [address], 05/26/2025 02:15:42 05/24/20 25 05/26/2025 COMPR EHENS MATTHEW METAB OLIC PANEL eGFR 88 mL/mi n/1.7 3m2 > or = 60 normal Not Available [address], [address], 05/26/2025 02:15:42 05/24/20 25 05/26/2025 COMPR EHENS MATTHEW METAB OLIC PANEL BUN/creatini ne ratio SEE NOTE: (calc ) 6-22 Not Repor carolyn: BUN and Creat inine are withi n refer ence range . Not Available [address] [address] [place], [address], 05/26/2025 02:15:42 05/24/2005/26/2025 COMPR EHENS MATTHEW METAB OLIC PANEL sodium 139 mmol/ L 135-14 6 normal Not Available [address], [address], 05/26/2025 02:15:42 05/24/20 25 05/26/2025 COMPR EHENS MATTHEW METAB OLIC PANEL potassium 4.3 mmol/ L 3.5-5. 3 normal Not Available [address], [address], 05/26/2025 02:15:42 05/24/20 25 05/26/2025 COMPR EHENS MATTHEW METAB OLIC PANEL chloride 106 mmol/ L 98-110 normal Not Available [address], [address], 05/26/2025 02:15:42 05/24/20 25 05/26/2025 COMPR EHENS MATTHEW METAB OLIC PANEL carbon dioxide 24 mmol/ L 20-32 normal Not Available [address], [address], 05/26/2025 02:15:42 05/24/2005/26/2025 COMPR EHENS MATTHEW METAB OLIC PANEL calcium 9.1 mg/dL 8.6-10 .3 normal Not Available [address] [address] [place], [address], 05/26/2025 02:15:42 05/24/2005/26/2025 COMPR EHENS MATTHEW METAB OLIC PANEL protein, total 6.4 g/dL 6.1-8. 1 normal Not Available [address], [address], 05/26/2025 02:15:42 05/24/20 25 05/26/2025 COMPR EHENS MATTHEW METAB OLIC PANEL albumin 4.3 g/dL 3.6-5. 1 normal Not Available [address], [address], 05/26/2025 02:15:42 05/24/20 25 05/26/2025 COMPR EHENS MATTHEW METAB OLIC PANEL globulin 2.1 g/dL_ (calc ) 1.9-3. 7 normal Not Available [address], [address], 05/26/2025 02:15:42 05/24/20 25 05/26/2025 COMPR EHENS MATTHEW METAB OLIC PANEL albumin/glob ulin ratio 2.0 (calc ) 1.0-2. 5 normal Not Available [address], [address], 05/26/2025 02:15:42 05/24/20 25 05/26/2025 COMPR EHENS MATTHEW METAB OLIC PANEL bilirubin, total 1.6 mg/dL 0.2-1. 2 high Not Available [address], [address], 05/26/2025 02:15:42 05/24/20 25 05/26/2025 COMPR EHENS MATTHEW METAB OLIC PANEL alkaline phosphatase 63 U/L 35-144 normal Not Available [address], [address], 05/26/2025 02:15:42 05/24/20 25 05/26/2025 COMPR EHENS MATTHEW METAB OLIC PANEL AST 13 U/L 10-35 normal Not Available [address], [address], 05/26/2025 02:15:42 05/24/20 25 05/26/2025 COMPR EHENS MATTHEW METAB OLIC PANEL ALT 8 U/L 9-46 low Not Available [address], [address], 05/26/2025 02:15:42 05/24/2005/26/2025 CBC (INCL UDES DIFF/ PLT) white blood cell count 6.8 thous and/u L 3.8-10 .8 normal Not Available [address], [address], 05/26/2025 02:15:43 05/24/2005/26/2025 CBC (INCL UDES DIFF/ PLT) red blood cell count 4.09 killian on/uL 4.20-5 .80 low Not Available [address], [address], 05/26/2025 02:15:43 05/24/2005/26/2025 CBC (INCL UDES DIFF/ PLT) hemoglobin 13.1 g/dL 13.2-1 7.1 low Not Available [address], [address], 05/26/2025 02:15:43 05/24/2005/26/2025 CBC (INCL UDES DIFF/ PLT) hematocrit 39.3 % 38.5-5 0.0 normal Not Available [address], [address], 05/26/2025 02:15:43 05/24/2005/26/2025 CBC (INCL UDES DIFF/ PLT) MCV 96.1 fL 80.0-1 00.0 normal Not Available [facility] [address], [address], 05/26/2025 02:15:43 05/24/2005/26/2025 CBC (INCL UDES DIFF/ PLT) MCH 32.0 pg 27.0-3 3.0 normal Not Available [address], [address], 05/26/2025 02:15:43 05/24/2005/26/2025 CBC (INCL UDES DIFF/ PLT) MCHC 33.3 g/dL 32.0-3 6.0 normal For adult s, a sligh t decre ase in the calcu lated MCHC value (in the range of 30 to 32 g/dL) is most likel y not clini maritza signi ficjagjit t; linh er, it shoul d be inter prete d with cauti on in corre latio n with other red cell edmond eters and the patie nt's clini zina condi tion. Not Available [address], [address], 05/26/2025 02:15:43 05/24/2005/26/2025 CBC (INCL UDES DIFF/ PLT) RDW 13.4 % 11.0-1 5.0 normal Not Available [address], [address], 05/26/2025 02:15:43 05/24/2005/26/2025 CBC (INCL UDES DIFF/ PLT) platelet count 312 thous and/u L 140-40 0 normal Not Available [address], [address], 05/26/2025 02:15:43 05/24/2005/26/2025 CBC (INCL UDES DIFF/ PLT) MPV 9.6 fL 7.5-12 .5 normal Not Available [facility] [address], [address], 05/26/2025 02:15:43 05/24/2005/26/2025 CBC (INCL UDES DIFF/ PLT) absolute neutrophils 4576 cells /uL 1500-7 800 normal Not Available [facility] [address], [address], 05/26/2025 02:15:43 05/24/2005/26/2025 CBC (INCL UDES DIFF/ PLT) absolute lymphocytes 1408 cells /uL 850-39 00 normal Not Available [address], [address], 05/26/2025 02:15:43 05/24/20 25 05/26/2025 CBC (INCL UDES DIFF/ PLT) absolute monocytes 660 cells /uL 200-95 0 normal Not Available [address], [address], 05/26/2025 02:15:43 05/24/20 25 05/26/2025 CBC (INCL UDES DIFF/ PLT) absolute eosinophils 109 cells /uL 15-500 normal Not Available [address], [address], 05/26/2025 02:15:43 05/24/2005/26/2025 CBC (INCL UDES DIFF/ PLT) absolute basophils 48 cells /uL 0-200 normal Not Available [address], [address], 05/26/2025 02:15:43 05/24/20 25 05/26/2025 CBC (INCL UDES DIFF/ PLT) neutrophils 67.3 % normal Not Available [address], [address], 05/26/2025 02:15:43 05/24/20 25 05/26/2025 CBC (INCL UDES DIFF/ PLT) lymphocytes 20.7 % normal Not Available [address], [address], 05/26/2025 02:15:43 05/24/20 25 05/26/2025 CBC (INCL UDES DIFF/ PLT) monocytes 9.7 % normal Not Available [address], [address], 05/26/2025 02:15:43 05/24/20 25 05/26/2025 CBC (INCL UDES DIFF/ PLT) eosinophils 1.6 % normal Not Available [address], [address], 05/26/2025 02:15:43 05/24/20 25 05/26/2025 CBC (INCL UDES DIFF/ PLT) basophils 0.7 % normal Not Available [address], [address], 05/26/2025 02:15:43 05/24/2005/26/2025 CEA cea <2.0 NG/mL [...] not be inter prete d as absol [place] evide nce of the prese nce or absen ce of disea se. Not Available [address], [address], 05/26/2025 02:15:43 05/24/20 25 05/26/2025 CA 19-9 Ca 19-9 35 U/mL <34 high This test was perfo rmed using the Sieme ns chemi lumin escen t metho d. Value s obtai rosibel from diffe rent assay metho ds canno t be used inter jackson eably . CA 19-9 level s, regar dless of value , shoul d not be inter prete d as absol [place] evide nce of the prese nce or absen ce of disea se. Not Available [address] [place], [address], 05/26/2025 02:15:43 06/13/2006/13/2025 US, scree laisha for abdom inal aorti c aneur ysm No observ ation record ed. [facility] [address], [place], [address], 06/14/2025 08:05:36 Result Notes None recorded. Problems Name Problem SNOMED Code Status Onset Date Resolution Date Notes Provider Name and Address Organization Details Recorded Time Hyperlip idemia 08097376 Completed 03/06/2021 MIKE Soto Attn: Accounting ,[address] [place], [address] , [facility] 1 11:24:45 Gastroes ophageal reflux disease 409860648 Active Tara Harrisma null, [facility] 6 10:34:12 Conducti ve hearing loss 03994184 Active Tara Harrisma null, [facility] 6 10:34:30 Impotenc e Active Tara Harrisma null, [facility] 6 10:34:40 Essentia l hyperten eleanor 12507333 Completed 201108/26/2019 Location : None;Sev erity: Moderate ;Progres s: Stable;A dded By: Jose Angel Milton d to Current Problems : YES MIKE Soto Attn: Accounting ,[address], [place], [address] , [facility] 0 11:30:41 Benign essentia l hyperten eleanor 8608715 Completed 201106/23/2012 Location : None;Sev erity: Moderate ;Progres s: Stable;A dded By: Sabine Reich i dd to Current Problems : NO Not Available [facility] 7 07:58:50 Neoplasm of bone 241142863 Completed 201203/29/2013 Location : None;Sev erity: Moderate ;Progres s: Stable;A dded By: Ashanti Wagoner;Add to Current Problems : NO Not Available [facility] 7 07:58:49 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 Location : None;Sev erity: Moderate ;Progres s: Stable;A dded By: Lazara Fuentes;Add to Current Problems : NO Not Available [facility] 7 07:58:49 Senile hyperker atosis 459468400 Completed 201209/16/2018 Location : None;Sev erity: Moderate ;Progres s: Stable;A dded By: Brooke Oviedo;Add to Current Problems : NO MIKE Soto Attn: Accounting ,[address], [place], [address] , [facility] 9 14:54:17 Closed fracture of rib 59713607 Completed 201308/26/2019 Location : None;Sev erity: Moderate ;Progres s: Stable;A dded By: Patrick Kovacs;A dd to Current Problems : NO MIKE Soto Attn: Accounting ,[address] [place], [address] , [facility] 0 11:30:34 Screenin g procedur e Completed 201409/30/2014 Location : None;Sev erity: Moderate ;Progres s: Stable;A dded By: Lazara Fuentes;Add to Current Problems : YES Not Available [facility] 7 07:58:49 Psychose xual dysfunct ion associat ed with inhibite d libido 332652510 Completed 201408/26/2019 Location : None;Sev erity: Moderate ;Progres s: Stable;A dded By: Lazara Fuentes;Add to Current Problems : YES MIKE Soto Attn: Accounting ,[address] [facility], [place], [address] , [facility] 0 11:31:36 Benign essentia l hyperten eleanor 2237468 Active 2014 Location : None;Sev erity: Moderate ;Progres s: Stable;A dded By: Lazara Fuentes;Add to Current Problems : YES Not Available [facility] 7 07:58:49 Middle ear conducti ve hearing loss 89782851 Completed 201408/26/2019 Location : None;Sev erity: Moderate ;Progres s: Stable;A dded By: Marycruz Reich i;Yusuf dd to Current Problems : YES MIKE Soto Attn: Accounting ,[address] [place], [address] , [facility] 0 11:31:26 Neoplasm of uncertai n behavior of skin 25198258 Completed 201404/07/2015 Location : None;Sev erity: Moderate ;Progres s: Stable;A dded By: Lazara Fuentes;Add to Current Problems : YES Not Available [facility] 7 07:58:49 Lumbar sprain 065453322 Completed 201404/07/2015 Location : None;Sev erity: Moderate ;Progres s: Stable;A dded By: Lazara Fuentes;Add to Current Problems : YES Not Available [facility] 7 07:58:49 Neoplasm of uncertai n behavior of skin 41899878 Completed 201403/16/2015 Location : None;Sev erity: Moderate ;Progres s: Stable;A dded By: Karen Milton;Billy d to Current Problems : YES Not Available [facility] 7 07:58:50 Diarrhea 91032081 Completed 201406/02/2015 Location : None;Sev erity: Moderate ;Progres s: Stable;A dded By: Nelda Peña; Add to Current Problems : YES Not Available [facility] 7 07:58:50 Family history of malignan t neoplasm of thoracic cavity structur e 563037763 Active 2014 Location : None;Sev erity: Moderate ;Progres s: Stable;A dded By: Lazara Fuentes;Add to Current Problems : YES Not Available [facility] 7 07:58:50 Prostate specific antigen above referenc e range 775184183 Completed 201409/08/2015 Location : None;Sev erity: Moderate ;Progres s: Stable;A dded By: Lazara Fuentes;Add to Current Problems : YES Not Available [facility] 7 07:58:50 Acute sinusiti s 58526108 Completed 201409/09/2015 Location : None;Sev erity: Moderate ;Progres s: Stable;A dded By: Brooke Oviedo;Add to Current Problems : YES Not Available [facility] 7 07:58:50 Screenin g for malignan t neoplasm of colon Active 2015 Location : None;Sev erity: Moderate ;Progres s: Stable;A dded By: Lazara Fuentes;Add to Current Problems : YES Not Available [facility] 7 07:58:50 Abnormal weight loss 128452168 Completed 201509/16/2018 Location : None;Sev erity: Moderate ;Progres s: Stable;A dded By: Marycruz Reich i;A dd to Current Problems : NO MIKE Soto Attn: Accounting ,[address] [place], [address] , [facility] 9 14:54:12 Contact dermatit is due to plants, except food Completed 201502/03/2016 Location : None;Sev erity: Moderate ;Progres s: Stable;A dded By: Marycruz Reich i;A dd to Current Problems : YES Not Available [facility] 7 07:58:51 Problem Notes None recorded. Procedures Surgical History Date Name Laterality Status Provider Name and Address Organization Details Recorded Time 018 Knee arthroscopy/surger y completed Macey Zhou RN [place] [facility] 06/22/2018 12:49:40 Hernia Repair completed Marycruz Rodriguez [place] [facility] 11/13/2017 13:39:13 Cholecystectomy completed Marycruz Rodriguez [place] [facility] 11/13/2017 13:39:07 Imaging Results None recorded. Procedure Notes None recorded. Medical Equipment None Reported. Allergies Allergen ID Allergen Name Allergen Category Reaction Reaction Severity Criticality Documentation Date Start Date Code Code System Note Provider Name and Address Organization Details Recorded Time 443890 Paxlovid medicatio n diarrhea Not available Not available 12/18/2021 Jacklyn Redd [facility], [place] [facility] 2 14:03:15 Medications Name Sig Start Date [...] ) by mouth daily 08/01 completed RxNorm: 476306;A corrie Substitu tion: True Not Available Not [...] ) by mouth qam 07/25 completed RxNorm: 433024;A llow Substitu tion: True Not Available Not [...] e 50 mcg/actua tion nasal spray,jenny pension [place] 1 spray every day by intranas al route. 09/16 completed Not Available Not Available Not Available doxycycli ne hyclate 100 mg tablet TAKE 1 TABLET BY MOUTH TWICE DAILY FOR 7 DAYS 05/29 completed Not Available Not Available Not Available dicyclomi ne 10 mg capsule Take 1 cap po qid prn 07/10 completed RxNorm: 393700;A llow Substitu tion: True Not Available Not [...] Updated DateTime 5 182.88 cm 22.8 kg/m2 54277.5 2 g 97.9 [degF] 97 % 66 /min 119/65 mm[Hg] Guadalupe Gaming MA [place] [facility] 5 11:30:19 Social History Question Answer Notes LastModified by Organizat ion Details LastModified Time Tobacco Smoking Status Never Smoker Amalia Harman [facility] 09/16/2018 14:29:28 Do You Have An [...] 7 Days, How Much Pain Have You Cat Spring? None Information not available 03/06/2021 In General, [...] Past 7 Days, How Often Have You Cat Spring Sleepy In The Daytime? Rarely Information not [...] anxious, or unable to sleep at night)? [id number] Information not available 03/06/2021 Family History Relationship [...] 1 completed MIKE Soto Attn: Accounting[address], [place], [address] [place] [address], [place] [facility] 04/29/2023 09:22:48 COVID-19, mRNA, LNP-S, PF, 30 mcg/0.3 mL dose 1 completed MIKE Soto Attn: Accounting[address] [place], [place], [address] [place] [address], [place] [facility] 04/29/2023 09:22:48 COVID-19, mRNA, LNP-S, PF, 30 mcg/0.3 mL dose 1 completed MIKE Soto Attn: Accounting,[address] [place], [place], [address] [place] [address], [place] [facility] 04/29/2023 09:22:48 Influenza, split virus, quadrivalent, preservative 7 completed Not Available [facility] 08/07/2019 02:33:02 Tdap 5 completed Not Available [facility] 05/24/2025 10:44:19 Tdap 8 completed Not Available [facility] 08/07/2019 02:45:24 Influenza, split virus, quadrivalent, preservative 8 completed Not Available [facility] 08/07/2019 02:51:07 Influenza, split virus, quadrivalent, preservative 0 completed CHELE Riley, [place] [facility] 08/26/2019 12:10:01 Tdap 6 completed Tara diallo, [place] [facility] 07/01/2016 10:36:30 Pneumococcal conjugate PCV 13 5 completed MIKE Soto Attn: Accounting,[address] [place], [address], [place] [facility] 04/29/2023 09:22:48 pneumococcal polysaccharide PPV23 4 completed MIKE Soto Attn: Accounting,[address], [place], [address], [facility] 04/29/2023 09:22:48 Influenza, split virus, trivalent, preservative 2 completed Not Available [facility] 08/21/2019 02:11:43 Influenza, split virus, trivalent, preservative 3 completed Not Available [facility] 08/21/2019 02:11:43 Influenza, split virus, trivalent, preservative 4 completed Not Available [facility] 08/21/2019 02:11:43 Influenza, split virus, quadrivalent, preservative 5 completed Not Available [facility] 08/21/2019 02:11:43 Influenza, high-dose, trivalent, PF 4 completed Blessing Montelongo MA null, [place] [facility] 04/15/2024 16:16:11 Influenza, high-dose, trivalent, PF 5 completed Guadalupe Gaming MA null, [place] [facility] 05/24/2025 13:20:52 Pneumococcal conjugate PCV20, polysaccharide CSY177 conjugate, adjuvant, PF 5 completed Guadalupe Gaming MA null, [place] [facility] 05/24/2025 13:20:53 Past Encounters Encounter ID Performer Location Encounter Start Date Encounter Closed Date Diagnosis/Indication Diagnosis SNOMED-CT Code Diagnosis ICD10 Code Diagnosis IMO Codes Diagnosis Note [id number] Verona Turner MD [facility] [address] [place] [address] 05/24/2025 10:43:21 05/24/2025 16:05:49 Adult health examination 704378176 Z00.00 Health Risk Assessment collected and reviewed. FIT test negative in November 2024 and colonoscop y with [facility] normal 2016 he declines further colorectal cancer screening, tetanus 12/05, zostavax completed, needs updated prevnar and influenza, recommende d seasonal covid and rsv. Hep C screening complete 06/19/21, offered AAA screening. Screening for malignant neoplasm of prostate 161939181 Z12.5 180404 sees urology PSA 3.3 last reported, will get urology records, Dr. Arnold at [place] 3.1 this year. REceived records Benign ess ential hypertension 8058017 I10 stable today, has a huge stock pile of metoprolol and doesn't need any. Gastroesop hageal reflux disease 292311655 K21.9 Having pretty consistent dyspepsia where he has very bloated full feeling in his epigastriu m after lunch or dinner, gets relief with TUMS, also with this ST with soda and intermitte nt hoarseness . Agrees to EGD. Influenza vaccination given 4583743513 9109 Z23 89420268 Requires v accination against Streptococcus pneumoniae 1289310175 Z23 645469 Nausea 860293950 R11.0 Abdominal aortic aneurysm screening 521208183 Z13.6 936140 Family his tory of malignant neoplasm of pancreas 067061934 Z80.0 494468 requests yearly CEAs and sed rate for FH GI cancers. Will add this year a Ca 19-9 as well. Hoarse 20241932 R49.0 186180 with off and on ST rena with carbonatio n likely. EGD will cover the vocal cord visualizat ion Recurrent bleeding of nose 3163427022 102 R04.0 66306005 3 days in row two weeks ago, then once last week, none since then. Left side. Resolved after 10 minutes max. Saline NS daily recommende d, exam normal today. Impacted c erumen in left ear 3848355375 912475 H61.22 4689765 successful ear wash. Health Concerns Section Related Observation LastModified by Organization Detai ls LastModified Time None Recorded Concern Status LastModified by Organization Details LastModified Time None Recorded Payers Encounter Date Sequence Insurance Name Policy Number Policy Mckeon Covered Member ID Mckeon Member ID Guarantor Name 05/24/2025 1 [employer] (MEDICARE REPLACEMENT/A DVANTAGE - PPO) [id number] Marek Schulz [id number] Marek Schulz Notes Date Note Type Note [...] the HPI MIKE Soto Attn: Accounting[address] [facility], [place], [address], [facility] 05/24/2025 14:10:12
--- OUTSIDE RECORDS SUMMARY | 2025-06-20 15:38 | XMS_ITS | Clinical Summary ---
Author Organization [facility] Address [facility] [place] [address] Care Team Providers Care Sludge Mill Operator Name Role Phone ParentGuadalupe Primary Care Provider [phone] Allergies No known active allergies Medications metoprolol [...] patient's age to complete this topic Insurance [facility] MEDICARE Advance Directives * Full Code (Latest Code Status on File) Date Activated Date Inactivated Comments 04/27/2024 10:05 AM 04/27/2024 12:05 PM Care Teams Sludge Mill Operator Relationship Specialty Start Date End Date ParentGuadalupe PA PCP - General FAMILY PRACTICE 04/27/24
--- OUTSIDE RECORDS SUMMARY | 2025-06-20 15:38 | XMS_ITS | Data Portability ---
[facility] Organization [facility] Address [address] [place] [address] Assessment No assessment recorded. Plan of Treatment Reminders Order Date Submit Date Provider Last Modified By Organization Details Last Modified Time Details Appointments MEDICARE WELLNESS VISIT 2025 10:00A M MIKE Soto Not available Not available Not available Lab carcinoem bryonic Ag, quant, serum or plasma 2024 025 [facility], [address], [place], [address], 05/26/2025 02:15:43 cancer Ag 19-9, serum or plasma 2024 025 [facility], [address], [place], [address], 05/26/2025 02:15:44 CBC w/ auto diff 2024 025 [facility], [address], [place], [address], 05/26/2025 02:15:43 CMP, serum or plasma 2024 025 [facility], [address], [place], [address], 05/26/2025 02:15:42 lipid panel, serum 2024 025 [facility], [address], [place], [address], 05/26/2025 02:15:42 CBC [address] [facility], [address], [address], [place], [address], 12/15/2024 13:02:01 iron + TIBC + ferritin, serum [address] [facility], [address], [address], [place], [address], 12/15/2024 13:01:58 CMP, serum or plasma [address] [facility], [address], [address], [place], [address], 12/15/2024 13:02:00 fecal occult blood, immunoass ay, stool 2024 025 [facility], [address] [place] [address], [place], [address], 12/21/2024 16:12:45 lipid panel, serum [address] [facility], [address], [address], [place], [address], 04/16/2024 11:00:37 carcinoem bryonic Ag, quant, serum or plasma [address] [facility], [address], [address], [place], [address], 04/16/2024 11:00:39 CMP, serum or plasma [address] [facility], [address], [address], [place], [address], 04/16/2024 11:00:38 CBC w/ auto diff 2023 024 [facility], [address], [place], [address], 04/16/2024 11:00:38 lipid panel, serum [address] [facility], [address], [address], [place], [address], 05/01/2023 06:55:59 urinalysi s, complete [address] [facility], [address], [address], [place], [address], 05/01/2023 06:56:01 CBC w/ auto diff [address] [facility], [address], [address], [place], [address], 05/01/2023 06:56:02 iron + TIBC + ferritin, serum [address] [facility], [address], [address], [place], [address], 05/01/2023 06:55:59 CMP, serum or plasma [address] [facility], [address], [address], [place], [address], 05/01/2023 06:56:00 carcinoem bryonic Ag, quant, serum or plasma [address] [facility], [address], [address], [place], [address], 05/01/2023 06:56:03 erythrocy te sedimenta tion rate by aura n method [address] [facility], [address], [address], [place], [address], 05/01/2023 06:56:01 Referral gastroent erologist referral 2024 025 [facility], [address], [address], [place], [address], 05/31/2025 16:11:44 cardiolog ist referral 2022 023 [facility], [address], [address], [place], [address], 06/22/2023 11:53:13 Procedures cerumen removal (PROC) 2024 025 wandres Not available 05/24/2025 13:29:35 Surgeries None recorded. Imaging US, screening for abdominal aortic aneurysm 2024 025 [facility] (Imaging), [address], [place], [address], 06/13/2025 13:30:28 Medication Orders ondansetr on HCl 4 mg tablet 2024 025 [place] [facility], [address], [address], [place], [place], [id number], 05/24/2025 12:05:38 omeprazol e 40 mg capsule,d elayed release 2023 024 [facility], [address], [address], [place], [place], [id number], 04/15/2024 15:22:08 hydrocort isone 2.5 % topical cream with perineal applicato r 2022 023 [email or web address] [id number], [address], [place], [place], [id number], 05/24/2025 11:14:24 omeprazol e 40 mg capsule,d elayed release 2022 023 [place] [facility], [address], [address], [place], [place], [id number], 05/29/2023 11:14:49 cyanocoba svetlana (vit B-12) 1,000 mcg/mL injection solution 2022 023 Not available 04/15/2024 14:53:11 acetamino phen 300 mg-codein e 30 mg tablet 2022 023 [id number], [address], [place], [address], 05/29/2023 10:36:02 Patient TargetsNo targets recorded. Patient Instructions Encounter Date Encounter Id Patient Instructions Last Modified By Organization Details Last Modified Time 04/29/2023 [id number] advance care planning: care instructions Not available 04/29/2023 10:33:36 preventing falls : care instructions Not available 04/29/2023 10:33:37 eating healthy foods: care instructions Not available 04/29/2023 10:33:37 04/15/2024 [id number] advance care planning: care instructions Not available 04/15/2024 15:22:08 preventing falls : care instructions Not available 04/15/2024 15:22:08 Medicare Wellnes s Preventive Checklist Not available 04/15/2024 15:22:08 eating healthy foods: care instructions Not available 04/15/2024 15:22:08 AD8 Dementia Screening Interview Not available 04/15/2024 15:22:08 05/24/2025 [id number] advance care planning: care instructions Not available 05/24/2025 12:05:33 preventing falls : care instructions Not available 05/24/2025 12:05:33 Medicare Wellnes s Preventive Checklist Not available 05/24/2025 12:05:33 eating healthy foods: care instructions Not available 05/24/2025 12:05:33 AD8 Dementia Screening Interview Not available 05/24/2025 12:05:33 Reason for Referral [employer] Referral for Dy spnea on exertion Referring Physician: Guadalupe Ware, Family Medicine, Encounter Date: 04/29/2023 Plasma Table Operator Referral for Gastroesophageal reflux disease Referring Physician: Guadalupe Ware, [facility], Encounter Date: 05/24/2025 Results Created Date Observation Date Name Description Value Unit Range Abnormal Flag Note LastModifiedBy Organization Detail LastModifiedTime 04/29/2005/01/2023 IRON, TIBC AND NYA TIN PANEL iron, total 79 mcg/d L 50-180 normal Not Available [address] [address] [place], [address], 05/01/2023 06:55:59 04/29/2005/01/2023 IRON, TIBC AND NYA TIN PANEL iron binding capacity 210 mcg/d L_(ca lc) 250-42 5 low Not Available [address] [address] [place], [address], 05/01/2023 06:55:59 04/29/2005/01/2023 IRON, TIBC AND NYA TIN PANEL % saturation 38 %_(ca lc) 20-48 normal Not Available [address] [address] [place], [address], 05/01/2023 06:55:59 04/29/2005/01/2023 IRON, TIBC AND NYA TIN PANEL ferritin 166 NG/mL 24-380 normal Not Available [address] [address] [place], [address], 05/01/2023 06:55:59 04/29/2005/01/2023 LIPID PANEL , STAND KIMBERLYN cholesterol, total 131 mg/dL <200 normal Not Available [address] [address] [place], [address], 05/01/2023 06:55:59 04/29/2005/01/2023 LIPID PANEL , STAND KIMBERLYN HDL cholesterol 45 mg/dL > or = 40 normal Not Available [address] [address] [place], [address], 05/01/2023 06:55:59 04/29/2005/01/2023 LIPID PANEL , STAND KIMBERLYN triglyceride s 100 mg/dL <150 normal Not Available [address], [address], 05/01/2023 06:55:59 04/29/2005/01/2023 LIPID PANEL , STAND [...] 310(1 9): 2061- 2068 (http ://ed ucati on.Acucela. ROCKI/f aq/FA Q164) Not Available [address], [address], 05/01/2023 06:55:59 04/29/2005/01/2023 LIPID PANEL , STAND KIMBERLYN chol/HDLC ratio 2.9 (calc ) <5.0 normal Not Available [address], [address], 05/01/2023 06:55:59 04/29/2005/01/2023 LIPID PANEL , STAND KIMBERLYN non HDL cholesterol 86 mg/dL _(zina c) <130 normal For patie nts with diabe lazaro plus 1 major ASCVD risk facto r, treat ing to a non-H DL-C goal of <100 mg/dL (LDL- C of <70 mg/dL ) is consi dered a thera peuti c optio n. Not Available [address], [address], 05/01/2023 06:55:59 04/29/2005/01/2023 COMPR EHENS MATTHEW METAB OLIC PANEL glucose 94 mg/dL 65-99 normal Fasti ng refer ence inter mike Not Available [address], [address], 05/01/2023 06:56:00 04/29/2005/01/2023 COMPR EHENS MATTHEW METAB OLIC PANEL urea nitrogen (BUN) 12 mg/dL 7-25 normal Not Available [address], [address], 05/01/2023 06:56:00 04/29/2005/01/2023 COMPR EHENS MATTHEW METAB OLIC PANEL creatinine 0.78 mg/dL 0.70-1 .28 normal Not Available [address], [address], 05/01/2023 06:56:00 04/29/2005/01/2023 COMPR EHENS MATTHEW METAB OLIC PANEL eGFR 92 mL/mi n/1.7 3m2 > or = 60 normal Not Available [address], [address], 05/01/2023 06:56:00 04/29/2005/01/2023 COMPR EHENS MATTHEW METAB OLIC PANEL BUN/creatini ne ratio SEE NOTE: (calc ) 6-22 Not Repor carolyn: BUN and Creat inine are withi n refer ence range . Not Available [address], [address], 05/01/2023 06:56:00 04/29/2005/01/2023 COMPR EHENS MATTHEW METAB OLIC PANEL sodium 139 mmol/ L 135-14 6 normal Not Available [address], [address], 05/01/2023 06:56:00 04/29/2005/01/2023 COMPR EHENS MATTHEW METAB OLIC PANEL potassium 4.5 mmol/ L 3.5-5. 3 normal Not Available [address], [address], 05/01/2023 06:56:00 04/29/2005/01/2023 COMPR EHENS MATTHEW METAB OLIC PANEL chloride 107 mmol/ L 98-110 normal Not Available [address], [address], 05/01/2023 06:56:00 04/29/2005/01/2023 COMPR EHENS MATTHEW METAB OLIC PANEL carbon dioxide 25 mmol/ L 20-32 normal Not Available [address], [address], 05/01/2023 06:56:00 04/29/2005/01/2023 COMPR EHENS MATTHEW METAB OLIC PANEL calcium 8.7 mg/dL 8.6-10 .3 normal Not Available [address], [address], 05/01/2023 06:56:00 04/29/2005/01/2023 COMPR EHENS MATTHEW METAB OLIC PANEL protein, total 6.1 g/dL 6.1-8. 1 normal Not Available [address], [address], 05/01/2023 06:56:00 04/29/2005/01/2023 COMPR EHENS MATTHEW METAB OLIC PANEL albumin 3.9 g/dL 3.6-5. 1 normal Not Available [address], [address], 05/01/2023 06:56:00 04/29/2005/01/2023 COMPR EHENS MATTHEW METAB OLIC PANEL globulin 2.2 g/dL_ (calc ) 1.9-3. 7 normal Not Available [address], [address], 05/01/2023 06:56:00 04/29/2005/01/2023 COMPR EHENS MATTHEW METAB OLIC PANEL albumin/glob ulin ratio 1.8 (calc ) 1.0-2. 5 normal Not Available [address], [address], 05/01/2023 06:56:00 04/29/2005/01/2023 COMPR EHENS MATTHEW METAB OLIC PANEL bilirubin, total 0.8 mg/dL 0.2-1. 2 normal Not Available [address], [address], 05/01/2023 06:56:00 04/29/2005/01/2023 COMPR EHENS MATTHEW METAB OLIC PANEL alkaline phosphatase 72 U/L 35-144 normal Not Available [address], [address], 05/01/2023 06:56:00 04/29/2005/01/2023 COMPR EHENS MATTHEW METAB OLIC PANEL AST 16 U/L 10-35 normal Not Available [address], [address], 05/01/2023 06:56:00 04/29/2005/01/2023 COMPR EHENS MATTHEW METAB OLIC PANEL ALT 10 U/L 9-46 normal Not Available [address], [address], 05/01/2023 06:56:00 04/29/2005/01/2023 URINA LYSIS , COMPL ETE color DARK YELLOW yellow normal Not Available [address], [address], 05/01/2023 06:56:00 04/29/2005/01/2023 URINA LYSIS , COMPL ETE appearance TURBID clear abnormal Not Available [address], [address], 05/01/2023 06:56:00 04/29/2005/01/2023 URINA LYSIS , COMPL ETE specific gravity 1.022 1.001- 1.035 normal Not Available [address], [address], 05/01/2023 06:56:00 04/29/2005/01/2023 URINA LYSIS , COMPL ETE pH < OR = 5.0 5.0-8. 0 normal Not Available [address], [address], 05/01/2023 06:56:00 04/29/2005/01/2023 URINA LYSIS , COMPL ETE glucose NEGATI VE negati ve normal Not Available [address], [address], 05/01/2023 06:56:00 04/29/2005/01/2023 URINA LYSIS , COMPL ETE bilirubin NEGATI VE negati ve normal Not Available [facility] [address], [address], 05/01/2023 06:56:00 04/29/2005/01/2023 URINA LYSIS , COMPL ETE ketones NEGATI VE negati ve normal Not Available [address], [address], 05/01/2023 06:56:00 04/29/2005/01/2023 URINA LYSIS , COMPL ETE occult blood NEGATI VE negati ve normal Not Available [address], [address], 05/01/2023 06:56:00 04/29/2005/01/2023 URINA LYSIS , COMPL ETE protein NEGATI VE negati ve normal Not Available [address], [address], 05/01/2023 06:56:00 04/29/2005/01/2023 URINA LYSIS , COMPL ETE nitrite NEGATI VE negati ve normal Not Available [address], [address], 05/01/2023 06:56:00 04/29/2005/01/2023 URINA LYSIS , COMPL ETE leukocyte esterase NEGATI VE negati ve normal Not Available [address], [address], 05/01/2023 06:56:00 04/29/2005/01/2023 URINA LYSIS , COMPL ETE WBC NONE SEEN /hpf < or = 5 normal Not Available [address], [address], 05/01/2023 06:56:00 04/29/2005/01/2023 URINA LYSIS , COMPL ETE RBC NONE SEEN /hpf < or = 2 normal Not Available [address], [address], 05/01/2023 06:56:00 04/29/2005/01/2023 URINA LYSIS , COMPL ETE squamous epithelial cells NONE SEEN /hpf < or = 5 normal Not Available [facility] [address], [address], 05/01/2023 06:56:00 04/29/2005/01/2023 URINA LYSIS , COMPL ETE bacteria NONE SEEN /hpf none seen normal Not Available [address], [address], 05/01/2023 06:56:00 04/29/2005/01/2023 URINA LYSIS , COMPL ETE hyaline cast NONE SEEN /lpf none seen normal Not Available [address], [address], 05/01/2023 06:56:00 04/29/2005/01/2023 SED RATE BY MODIF IED WESTE RGREN sed rate by modified westergren 5 mm/h < or = 20 normal Not Available [address], [address], 05/01/2023 06:56:01 04/29/2005/01/2023 CBC (INCL UDES DIFF/ PLT) white blood cell count 6.8 thous and/u L 3.8-10 .8 normal Not Available [address], [address], 05/01/2023 06:56:02 04/29/2005/01/2023 CBC (INCL UDES DIFF/ PLT) red blood cell count 4.07 killian on/uL 4.20-5 .80 low Not Available [address], [address], 05/01/2023 06:56:02 04/29/2005/01/2023 CBC (INCL UDES DIFF/ PLT) hemoglobin 13.2 g/dL 13.2-1 7.1 normal Not Available [address], [address], 05/01/2023 06:56:02 04/29/2005/01/2023 CBC (INCL UDES DIFF/ PLT) hematocrit 38.4 % 38.5-5 0.0 low Not Available [address], [address], 05/01/2023 06:56:02 04/29/2005/01/2023 CBC (INCL UDES DIFF/ PLT) MCV 94.3 fL 80.0-1 00.0 normal Not Available [address], [address], 05/01/2023 06:56:02 04/29/2005/01/2023 CBC (INCL UDES DIFF/ PLT) MCH 32.4 pg 27.0-3 3.0 normal Not Available [address], [address], 05/01/2023 06:56:02 04/29/2005/01/2023 CBC (INCL UDES DIFF/ PLT) MCHC 34.4 g/dL 32.0-3 6.0 normal Not Available [address], [address], 05/01/2023 06:56:02 04/29/2005/01/2023 CBC (INCL UDES DIFF/ PLT) RDW 13.6 % 11.0-1 5.0 normal Not Available [address], [address], 05/01/2023 06:56:02 04/29/2005/01/2023 CBC (INCL UDES DIFF/ PLT) platelet count 279 thous and/u L 140-40 0 normal Not Available [address], [address], 05/01/2023 06:56:02 04/29/2005/01/2023 CBC (INCL UDES DIFF/ PLT) MPV 9.6 fL 7.5-12 .5 normal Not Available [address], [address], 05/01/2023 06:56:02 04/29/2005/01/2023 CBC (INCL UDES DIFF/ PLT) absolute neutrophils 4903 cells /uL 1500-7 800 normal Not Available [address], [address], 05/01/2023 06:56:02 04/29/2005/01/2023 CBC (INCL UDES DIFF/ PLT) absolute lymphocytes 884 cells /uL 850-39 00 normal Not Available [address], [address], 05/01/2023 06:56:02 04/29/2005/01/2023 CBC (INCL UDES DIFF/ PLT) absolute monocytes 884 cells /uL 200-95 0 normal Not Available [address], [address], 05/01/2023 06:56:02 04/29/2005/01/2023 CBC (INCL UDES DIFF/ PLT) absolute eosinophils 88 cells /uL 15-500 normal Not Available [address], [address], 05/01/2023 06:56:02 04/29/2005/01/2023 CBC (INCL UDES DIFF/ PLT) absolute basophils 41 cells /uL 0-200 normal Not Available [address], [address], 05/01/2023 06:56:02 04/29/2005/01/2023 CBC (INCL UDES DIFF/ PLT) neutrophils 72.1 % normal Not Available [address], [address], 05/01/2023 06:56:02 04/29/2005/01/2023 CBC (INCL UDES DIFF/ PLT) lymphocytes 13.0 % normal Not Available [address], [address], 05/01/2023 06:56:02 04/29/2005/01/2023 CBC (INCL UDES DIFF/ PLT) monocytes 13.0 % normal Not Available [address], [address], 05/01/2023 06:56:02 04/29/20 23 05/01/2023 CBC (INCL UDES DIFF/ PLT) eosinophils 1.3 % normal Not Available [address], [address], 05/01/2023 06:56:02 04/29/20 23 05/01/2023 CBC (INCL UDES DIFF/ PLT) basophils 0.6 % normal Not Available [address], [address], 05/01/2023 06:56:02 04/29/2005/01/2023 CEA cea <2.0 NG/mL see note: normal Refer ence Range : Non-S moker : <2.5 Smoke r: <5.0 This test was perfo rmed using the [employer] chemi lumin escen t metho d. Value s obtai rosibel from diffe rent assay metho ds canno t be used inter jackson eably . CEA level s, regar dless of value , shoul d not be inter prete d as absol [place] evide nce of the prese nce or absen ce of disea se. Not Available [address], [address], 05/01/2023 06:56:03 04/15/2004/16/2024 LIPID PANEL , STAND KIMBERLYN cholesterol, total 139 mg/dL <200 normal Not Available [address], [address], 04/16/2024 11:00:37 04/15/20 24 04/16/2024 LIPID PANEL , STAND KIMBERLYN HDL cholesterol 62 mg/dL > or = 40 normal Not Available [address], [address], 04/16/2024 11:00:37 04/15/20 24 04/16/2024 LIPID PANEL , STAND KIMBERLYN triglyceride s 90 mg/dL <150 normal Not Available [facility] [address] [address] [place], [address], 04/16/2024 11:00:37 04/15/2004/16/2024 LIPID PANEL , STAND KIMBERLYN LDL-choleste rol 60 mg/dL _(zina c) normal Refer ence range : <100 Catie able range <100 mg/dL for prima ry preve ntion ; <70 mg/dL for patie nts with CHD or diabe tic patie nts with > or = 2 CHD risk facto rs. LDL-C is now calcu lated using the Magaly n-Hop kins calcu latbrigitte n, which is a valid ated novel chilo carbera accur acekta than the Fried gene equat ion in the estim ation of LDL-C . Magaly ross SS et al. BRIT. 2013; 310(1 9): 2061- 2068 (http ://ed ucati on.Baokim carleeBanno. com/f aq/FA Q164) Not Available [facility] [address] [address] [place], [address], 04/16/2024 11:00:37 04/15/20 24 04/16/2024 LIPID PANEL , STAND KIMBERLYN chol/HDLC ratio 2.2 (calc ) <5.0 normal Not Available [address] [address] [place], [address], 04/16/2024 11:00:37 04/15/20 24 04/16/2024 LIPID PANEL , STAND KIMBERLYN non HDL cholesterol 77 mg/dL _(zina c) <130 normal For patie nts with diabe lazaro plus 1 major ASCVD risk facto r, treat ing to a non-H DL-C goal of <100 mg/dL (LDL- C of <70 mg/dL ) is mere sorenson optio n. Not Available [facility] [address] [place], [address], 04/16/2024 11:00:37 04/15/20 24 04/16/2024 COMPR EHENS MATTHEW METAB OLIC PANEL glucose 89 mg/dL 65-99 normal Fasti ng refer ence inter mike Not Available [address], [address], 04/16/2024 11:00:38 04/15/20 24 04/16/2024 COMPR EHENS MATTHEW METAB OLIC PANEL urea nitrogen (BUN) 18 mg/dL 7-25 normal Not Available [address], [address], 04/16/2024 11:00:38 04/15/20 24 04/16/2024 COMPR EHENS MATTHEW METAB OLIC PANEL creatinine 0.94 mg/dL 0.70-1 .28 normal Not Available [address], [address], 04/16/2024 11:00:38 04/15/20 24 04/16/2024 COMPR EHENS MATTHEW METAB OLIC PANEL eGFR 83 mL/mi n/1.7 3m2 > or = 60 normal Not Available [address], [address], 04/16/2024 11:00:38 04/15/20 24 04/16/2024 COMPR EHENS MATTHEW METAB OLIC PANEL BUN/creatini ne ratio SEE NOTE: (calc ) 6-22 Not Repor carolyn: BUN and Creat inine are withi n refer ence range . Not Available [address], [address], 04/16/2024 11:00:38 04/15/20 24 04/16/2024 COMPR EHENS MATTHEW METAB OLIC PANEL sodium 141 mmol/ L 135-14 6 normal Not Available [address], [address], 04/16/2024 11:00:38 04/15/20 24 04/16/2024 COMPR EHENS MATTHEW METAB OLIC PANEL potassium 4.6 mmol/ L 3.5-5. 3 normal Not Available [address], [address], 04/16/2024 11:00:38 04/15/20 24 04/16/2024 COMPR EHENS MATTHEW METAB OLIC PANEL chloride 109 mmol/ L 98-110 normal Not Available [address], [address], 04/16/2024 11:00:38 04/15/20 24 04/16/2024 COMPR EHENS MATTHEW METAB OLIC PANEL carbon dioxide 27 mmol/ L 20-32 normal Not Available [address], [address], 04/16/2024 11:00:38 04/15/20 24 04/16/2024 COMPR EHENS MATTHEW METAB OLIC PANEL calcium 9.0 mg/dL 8.6-10 .3 normal Not Available [address], [address], 04/16/2024 11:00:38 04/15/20 24 04/16/2024 COMPR EHENS MATTHEW METAB OLIC PANEL protein, total 6.0 g/dL 6.1-8. 1 low Not Available [address], [address], 04/16/2024 11:00:38 04/15/20 24 04/16/2024 COMPR EHENS MATTHEW METAB OLIC PANEL albumin 3.7 g/dL 3.6-5. 1 normal Not Available [address], [address], 04/16/2024 11:00:38 04/15/20 24 04/16/2024 COMPR EHENS MATTHEW METAB OLIC PANEL globulin 2.3 g/dL_ (calc ) 1.9-3. 7 normal Not Available [address], [address], 04/16/2024 11:00:38 04/15/20 24 04/16/2024 COMPR EHENS MATTHEW METAB OLIC PANEL albumin/glob ulin ratio 1.6 (calc ) 1.0-2. 5 normal Not Available [address], [address], 04/16/2024 11:00:38 04/15/20 24 04/16/2024 COMPR EHENS MATTHEW METAB OLIC PANEL bilirubin, total 0.6 mg/dL 0.2-1. 2 normal Not Available [address], [address], 04/16/2024 11:00:38 04/15/20 24 04/16/2024 COMPR EHENS MATTHEW METAB OLIC PANEL alkaline phosphatase 69 U/L 35-144 normal Not Available [address], [address], 04/16/2024 11:00:38 04/15/20 24 04/16/2024 COMPR EHENS MATTHEW METAB OLIC PANEL AST 15 U/L 10-35 normal Not Available [address], [address], 04/16/2024 11:00:38 04/15/20 24 04/16/2024 COMPR EHENS MATTHEW METAB OLIC PANEL ALT 9 U/L 9-46 normal Not Available [address], [address], 04/16/2024 11:00:38 04/15/20 24 04/16/2024 CBC (INCL UDES DIFF/ PLT) white blood cell count 6.4 thous and/u L 3.8-10 .8 normal Not Available [address], [address], 04/16/2024 11:00:38 04/15/20 24 04/16/2024 CBC (INCL UDES DIFF/ PLT) red blood cell count 3.94 killian on/uL 4.20-5 .80 low Not Available [address], [address], 04/16/2024 11:00:38 04/15/20 24 04/16/2024 CBC (INCL UDES DIFF/ PLT) hemoglobin 12.7 g/dL 13.2-1 7.1 low Not Available [address], [address], 04/16/2024 11:00:38 04/15/20 24 04/16/2024 CBC (INCL UDES DIFF/ PLT) hematocrit 37.7 % 38.5-5 0.0 low Not Available [facility] [address], [address], 04/16/2024 11:00:38 04/15/20 24 04/16/2024 CBC (INCL UDES DIFF/ PLT) MCV 95.7 fL 80.0-1 00.0 normal Not Available [facility] [address], [address], 04/16/2024 11:00:38 04/15/20 24 04/16/2024 CBC (INCL UDES DIFF/ PLT) MCH 32.2 pg 27.0-3 3.0 normal Not Available [facility] [address], [address], 04/16/2024 11:00:38 04/15/20 24 04/16/2024 CBC (INCL UDES DIFF/ PLT) MCHC 33.7 g/dL 32.0-3 6.0 normal Not Available [facility] [address], [address], 04/16/2024 11:00:38 04/15/20 24 04/16/2024 CBC (INCL UDES DIFF/ PLT) RDW 13.3 % 11.0-1 5.0 normal Not Available [facility] [address] [place], [address], 04/16/2024 11:00:38 04/15/20 24 04/16/2024 CBC (INCL UDES DIFF/ PLT) platelet count 314 thous and/u L 140-40 0 normal Not Available [address], [address], 04/16/2024 11:00:38 04/15/20 24 04/16/2024 CBC (INCL UDES DIFF/ PLT) MPV 9.9 fL 7.5-12 .5 normal Not Available [facility] [address], [address], 04/16/2024 11:00:38 04/15/20 24 04/16/2024 CBC (INCL UDES DIFF/ PLT) absolute neutrophils 4237 cells /uL 1500-7 800 normal Not Available [address], [address], 04/16/2024 11:00:38 04/15/20 24 04/16/2024 CBC (INCL UDES DIFF/ PLT) absolute lymphocytes 1389 cells /uL 850-39 00 normal Not Available [address], [address], 04/16/2024 11:00:38 04/15/20 24 04/16/2024 CBC (INCL UDES DIFF/ PLT) absolute monocytes 595 cells /uL 200-95 0 normal Not Available [address], [address], 04/16/2024 11:00:38 04/15/20 24 04/16/2024 CBC (INCL UDES DIFF/ PLT) absolute eosinophils 128 cells /uL 15-500 normal Not Available [address], [address], 04/16/2024 11:00:38 04/15/20 24 04/16/2024 CBC (INCL UDES DIFF/ PLT) absolute basophils 51 cells /uL 0-200 normal Not Available [address], [address], 04/16/2024 11:00:38 04/15/20 24 04/16/2024 CBC (INCL UDES DIFF/ PLT) neutrophils 66.2 % normal Not Available [address], [address], 04/16/2024 11:00:38 04/15/20 24 04/16/2024 CBC (INCL UDES DIFF/ PLT) lymphocytes 21.7 % normal Not Available [address], [address], 04/16/2024 11:00:38 04/15/20 24 04/16/2024 CBC (INCL UDES DIFF/ PLT) monocytes 9.3 % normal Not Available [address], [address], 04/16/2024 11:00:38 04/15/20 24 04/16/2024 CBC (INCL UDES DIFF/ PLT) eosinophils 2.0 % normal Not Available [address], [address], 04/16/2024 11:00:38 04/15/20 24 04/16/2024 CBC (INCL UDES DIFF/ PLT) basophils 0.8 % normal Not Available [address], [address], 04/16/2024 11:00:38 04/15/20 24 04/16/2024 CEA cea <2.0 NG/mL see note: normal Refer ence Range : Non-S moker : <2.5 Smoke r: <5.0 This test was perfo rmed using the [employer] chemi lumin escen t metho d. Value s obtai rosibel from diffe rent assay metho ds canno t be used inter jackson eably . CEA level s, regar dless of value , shoul d not be inter prete d as absol [place] evide nce of the prese nce or absen ce of [facility] se. Not Available [address], [address], 04/16/2024 11:00:39 04/15/20 24 04/19/2024 IRON, TIBC AND NYA TIN PANEL iron, total 115 mcg/d L 50-180 normal Not Available [address], [address], 04/19/2024 17:32:11 04/15/2004/19/2024 IRON, TIBC AND NYA TIN PANEL iron binding capacity 243 mcg/d L_(ca lc) 250-42 5 low Not Available [address], [address], 04/19/2024 17:32:11 04/15/20 24 04/19/2024 IRON, TIBC AND NYA TIN PANEL % saturation 47 %_(ca lc) 20-48 normal Not Available [address], [address], 04/19/2024 17:32:11 04/15/20 24 04/19/2024 IRON, TIBC AND NYA TIN PANEL ferritin 96 NG/mL 24-380 normal Not Available [address], [address], 04/19/2024 17:32:11 04/15/20 24 04/19/2024 TEST AUTHO RIZAT ION test name: IRON, TIBC AND FERRIT IN PANEL Not Available [address], [address], 04/19/2024 17:32:14 04/15/20 24 04/19/2024 TEST AUTHO RIZAT ION test code: 5616SB [id number] Not Available [address], [address], 04/19/2024 17:32:14 04/15/20 24 04/19/2024 TEST AUTHO RIZAT ION client contact: ABBY TITUS Not Available [address], [address], 04/19/2024 17:32:14 04/15/20 24 04/19/2024 TEST AUTHO [...] senta tive. Signa ture: __ Not Available [address] [address] [place], [address], 04/19/2024 17:32:14 04/15/20 24 04/19/2024 TEST AUTHO RIZAT ION comment Fax pieter r: [phone] Not Available [address], [address], 04/19/2024 17:32:14 04/15/20 24 04/19/2024 VITAM IN B12/F OLATE , SERUM PANEL vitamin B12 497 pg/mL 200-11 00 normal Not Available [facility] [employer] [address], [place], [address], 04/19/2024 17:32:15 04/15/2004/19/2024 VITAM IN B12/F OLATE , SERUM PANEL folate, serum 17.5 NG/mL normal Refer ence Range Low: <3.4 Borde rline : 3.4-5 .4 Wanda l: >5.4 Not Available [facility] [address] , [place], [address], 04/19/2024 17:32:15 04/27/20 24 05/02/2024 Bacte brock ident ified in Speci men by Anaer obe cultu re specimen source identified TOE,LE FT SPEC DESCR IPTIO N TOE,L EFT 04/27 7:55 AM CDT [facility] Not Available Not Available 12/14/2024 03:18:08 04/27/2005/02/2024 Bacte brock ident ified in Speci men by Anaer obe cultu re service comment NO SPECIA L REQUES T SPECI AL REQUE STS NO SPECI AL REQUE ST 04/27 7:55 AM CDT [facility] Not Available Not Available 12/14/2024 03:18:08 04/27/2005/02/2024 Bacte brock ident ified in Speci men by Anaer obe cultu re microscopic observation [identifier] in specimen by gram stain RARE WHITE BLOOD CELLS SEEN GRAM STAIN RESUL T RARE WHITE BLOOD CELLS SEEN 04/27 2:32 PM CDT [facility] Not Available Not Available 12/14/2024 03:18:08 04/27/2005/02/2024 Bacte brock ident ified in Speci men by Anaer obe cultu re microscopic observation [identifier] in specimen by gram stain MANY RED BLOOD CELLS SEEN GRAM STAIN RESUL T MANY RED BLOOD CELLS SEEN 04/27 2:32 PM CDT [facility] Not Available Not Available 12/14/2024 03:18:08 04/27/20 24 05/02/2024 Bacte brock ident ified in Speci men by Anaer obe cultu re microscopic observation [identifier] in specimen by gram stain NO ORGANI SMS SEEN GRAM STAIN RESUL T NO ORGAN ISMS SEEN 04/27 2:32 PM CDT [facility] Not Available Not Available 12/14/2024 03:18:08 04/27/20 24 05/02/2024 Bacte brock ident ified in Speci men by Anaer obe cultu re bacteria identified in specimen by culture NO GROWTH 5 DAYS CULTU RE RESUL T NO GROWT H 5 DAYS 05/02 6:55 AM CDT [facility] Not Available Not Available 12/14/2024 [...] OBIC ORGAN ISMS. 05/02 6:55 AM CDT [facility] Not Available Not Available 12/14/2024 03:18:08 04/27/20 24 04/28/2024 Patho logy study pathology study [facility] al Depart ment of [facility] [address] [place] [address] Teleph one: , extens ion [id number] Pathol ogy Report Surgic al Pathol ogy Report Name: PONCE GIBSON Bernardo en #: [id number] Age: [birth year] (Age: 79) Locati on: [facility] Sex: M Proced ure Date: Hospit al #: [id number] Date Receiv ed: Date Report ed: 10/9/2 024 Provid er: GELACIO MACK DPYessi Source : [...] and sign out were perfor med at [facility], [address] [place] [address]. FINAL DIAGNO SIS: Soft tissue , left great toe, excisi on: -Epide rmal inclus ion cyst. Elec tronic ally Signed Out GAVI JAIME MD PATHO LOGY [facility] harpreet Depar tment of Labor atory Medic ine [address] [facility] [address] [facility], [place] [address] Telep conrad: [phone], exten eleanor [id number] Patho logy Repor t Surgi zina Patho logy Repor t Name: PONCE GOTTI Speci men #: [id number] Age: [birth year] (Age: 79) Locat ion: [facility] Sex: M Proce dure Date: 2023 Hospi harpreet #: [id number] Date Recei kathy: 2023 Date Repor [...] and sign out were perfo rmed at [facility], [address] [facility], [place] [address] . FINAL DIAGN OSIS: Soft tissu e, left great toe, excis ion: -Epid ermal inclu eleanor cyst. Abigail ctron icall y Nila d Out ERNESTINE Cabrera MD [facility] Not Available Not Available 12/14/2024 03:18:07 12/14/1912/15/2024 IRON, TIBC AND NYA TIN PANEL iron, total 181 mcg/d L 50-180 high Not Available [facility] [address], [address], 12/15/2024 13:01:58 12/14/19 25 12/15/2024 IRON, TIBC AND NYA TIN PANEL iron binding capacity 251 mcg/d L_(ca lc) 250-42 5 normal Not Available [address], [address], 12/15/2024 13:01:58 12/14/19 25 12/15/2024 IRON, TIBC AND NYA TIN PANEL % saturation 72 %_(ca lc) 20-48 high Not Available [facility] [address], [address], 12/15/2024 13:01:58 12/14/19 25 12/15/2024 IRON, TIBC AND NYA TIN PANEL ferritin 128 NG/mL 24-380 normal Not Available [facility] [address] [place], [address], 12/15/2024 13:01:58 12/14/19 25 12/15/2024 COMPR EHENS MATTHEW METAB OLIC PANEL glucose 86 mg/dL 65-99 normal Fasti ng refer ence inter mike Not Available [address], [address], 12/15/2024 13:02:00 12/14/19 25 12/15/2024 COMPR EHENS MATTHEW METAB OLIC PANEL urea nitrogen (BUN) 16 mg/dL 7-25 normal Not Available [address], [address], 12/15/2024 13:02:00 12/14/1912/15/2024 COMPR EHENS MATTHEW METAB OLIC PANEL creatinine 0.89 mg/dL 0.70-1 .28 normal Not Available [address], [address], 12/15/2024 13:02:00 12/14/19 25 12/15/2024 COMPR EHENS MATTHEW METAB OLIC PANEL eGFR 88 mL/mi n/1.7 3m2 > or = 60 normal Not Available [address], [address], 12/15/2024 13:02:00 12/14/19 25 12/15/2024 COMPR EHENS MATTHEW METAB OLIC PANEL BUN/creatini ne ratio SEE NOTE: (calc ) 6-22 Not Repor carolyn: BUN and Creat inine are withi n refer ence range . Not Available [address], [address], 12/15/2024 13:02:00 12/14/19 25 12/15/2024 COMPR EHENS MATTHEW METAB OLIC PANEL sodium 139 mmol/ L 135-14 6 normal Not Available [address], [address], 12/15/2024 13:02:00 12/14/19 25 12/15/2024 COMPR EHENS MATTHEW METAB OLIC PANEL potassium 4.9 mmol/ L 3.5-5. 3 normal Not Available [address], [address], 12/15/2024 13:02:00 12/14/19 25 12/15/2024 COMPR EHENS MATTHEW METAB OLIC PANEL chloride 107 mmol/ L 98-110 normal Not Available [address], [address], 12/15/2024 13:02:00 12/14/19 25 12/15/2024 COMPR EHENS MATTHEW METAB OLIC PANEL carbon dioxide 28 mmol/ L 20-32 normal Not Available [address], [address], 12/15/2024 13:02:00 12/14/19 25 12/15/2024 COMPR EHENS MATTHEW METAB OLIC PANEL calcium 9.3 mg/dL 8.6-10 .3 normal Not Available [address], [address], 12/15/2024 13:02:00 12/14/19 25 12/15/2024 COMPR EHENS MATTHEW METAB OLIC PANEL protein, total 6.3 g/dL 6.1-8. 1 normal Not Available [address], [address], 12/15/2024 13:02:00 12/14/19 25 12/15/2024 COMPR EHENS MATTHEW METAB OLIC PANEL albumin 4.1 g/dL 3.6-5. 1 normal Not Available [address], [address], 12/15/2024 13:02:00 12/14/19 25 12/15/2024 COMPR EHENS MATTHEW METAB OLIC PANEL globulin 2.2 g/dL_ (calc ) 1.9-3. 7 normal Not Available [address] [place], [address], 12/15/2024 13:02:00 12/14/19 25 12/15/2024 COMPR EHENS MATTHEW METAB OLIC PANEL albumin/glob ulin ratio 1.9 (calc ) 1.0-2. 5 normal Not Available [address], [address], 12/15/2024 13:02:00 12/14/19 25 12/15/2024 COMPR EHENS MATTHEW METAB OLIC PANEL bilirubin, total 1.0 mg/dL 0.2-1. 2 normal Not Available [address], [address], 12/15/2024 13:02:00 12/14/19 25 12/15/2024 COMPR EHENS MATTHEW METAB OLIC PANEL alkaline phosphatase 68 U/L 35-144 normal Not Available [address], [address], 12/15/2024 13:02:00 12/14/19 25 12/15/2024 COMPR EHENS MATTHEW METAB OLIC PANEL AST 16 U/L 10-35 normal Not Available [address], [address], 12/15/2024 13:02:00 12/14/19 25 12/15/2024 COMPR EHENS MATTHEW METAB OLIC PANEL ALT 11 U/L 9-46 normal Not Available [address], [address], 12/15/2024 13:02:00 12/14/19 25 12/15/2024 CBC (H/H, RBC, INDIC ES, WBC, PLT) white blood cell count 6.2 thous and/u L 3.8-10 .8 normal Not Available [address], [address], 12/15/2024 13:02:01 12/14/19 25 12/15/2024 CBC (H/H, RBC, INDIC ES, WBC, PLT) red blood cell count 4.20 killian on/uL 4.20-5 .80 normal Not Available [address], [address], 12/15/2024 13:02:01 12/14/1912/15/2024 CBC (H/H, RBC, INDIC ES, WBC, PLT) hemoglobin 13.2 g/dL 13.2-1 7.1 normal Not Available [address], [address], 12/15/2024 13:02:01 12/14/1912/15/2024 CBC (H/H, RBC, INDIC ES, WBC, PLT) hematocrit 41.1 % 38.5-5 0.0 normal Not Available [address], [address], 12/15/2024 13:02:01 12/14/1912/15/2024 CBC (H/H, RBC, INDIC ES, WBC, PLT) MCV 97.9 fL 80.0-1 00.0 normal Not Available [address], [address], 12/15/2024 13:02:01 12/14/1912/15/2024 CBC (H/H, RBC, INDIC ES, WBC, PLT) MCH 31.4 pg 27.0-3 3.0 normal Not Available [address], [address], 12/15/2024 13:02:01 12/14/1912/15/2024 CBC (H/H, RBC, INDIC ES, WBC, PLT) MCHC 32.1 g/dL 32.0-3 6.0 normal For adult s, a sligh t decre ase in the calcu lated MCHC value (in the range of 30 to 32 g/dL) is most likel y not clini maritza signi fican t; jesseev er, it shoul d be inter prete d with cauti on in corre latio n with other red cell edmond eters and the patie nt's clini zina condi tion. Not Available [address], [address], 12/15/2024 13:02:01 12/14/19 25 12/15/2024 CBC (H/H, RBC, INDIC ES, WBC, PLT) RDW 13.5 % 11.0-1 5.0 normal Not Available [facility] [address], [address], 12/15/2024 13:02:01 12/14/19 25 12/15/2024 CBC (H/H, RBC, INDIC ES, WBC, PLT) platelet count 324 thous and/u L 140-40 0 normal Not Available [address], [address], 12/15/2024 13:02:01 12/14/19 25 12/15/2024 CBC (H/H, RBC, INDIC ES, WBC, PLT) MPV 9.8 fL 7.5-12 .5 normal Not Available [address], [address], 12/15/2024 13:02:01 12/15/19 25 12/21/2024 COLOF IT,OC CULT BLOOD ,FECA L,IA occult blood, fecal, ia NEGATI VE negati ve Not Available [facility] ([facility]) [address] [facility], [place], [address], 12/21/2024 16:12:44 05/24/20 25 05/26/2025 LIPID PANEL , STAND KIMBERLYN cholesterol, total 159 mg/dL <200 normal Not Available [address], [address], 05/26/2025 02:15:42 05/24/20 25 05/26/2025 LIPID PANEL , STAND KIMBERLYN HDL cholesterol 58 mg/dL > or = 40 normal Not Available [address], [address], 05/26/2025 02:15:42 05/24/20 25 05/26/2025 LIPID PANEL , STAND KIMBERLYN triglyceride s 67 mg/dL <150 normal Not Available [facility] [address], [address], 05/26/2025 02:15:42 05/24/20 25 05/26/2025 LIPID PANEL , STAND KIMBERLYN LDL-choleste rol 86 mg/dL _(zina c) normal Refer ence range : <100 Catie able range <100 mg/dL for prima ry preve ntion ; <70 mg/dL for patie nts with CHD or diabe tic patie nts with > or = 2 CHD risk facto rs. LDL-C is now calcu lated using the Magaly n[facility] calcu sherri n, which is a valid ated novel metho d provi ding michael r accur acy than the Fried gene equat ion in the estim ation of LDL-C . Magaly ross SS et al. BRIT. 2013; 310(1 9): 2061- 2068 (http ://ed ucati on.Qu Zuleika Social[employer]. com/f aq/FA Q164) Not Available [address], [address], 05/26/2025 02:15:42 05/24/20 25 05/26/2025 LIPID PANEL , STAND KIMBERLYN chol/HDLC ratio 2.7 (calc ) <5.0 normal Not Available [address], [address], 05/26/2025 02:15:42 05/24/20 25 05/26/2025 LIPID PANEL , STAND KIMBERLYN non HDL cholesterol 101 mg/dL _(zina c) <130 normal For patie nts with diabe lazaro plus 1 major ASCVD risk facto r, treat ing to a non-H DL-C goal of <100 mg/dL (LDL- C of <70 mg/dL ) is mere grayo n. Not Available [address] [address] [place], [address], 05/26/2025 02:15:42 05/24/2005/26/2025 COMPR EHENS MATTHEW METAB OLIC PANEL glucose 86 mg/dL 65-99 normal Fasti ng refer ence inter mike Not Available [address] [address] [place], [address], 05/26/2025 02:15:42 05/24/20 25 05/26/2025 COMPR EHENS MATTHEW METAB OLIC PANEL urea nitrogen (BUN) 21 mg/dL 7-25 normal Not Available [address] [place], [address], 05/26/2025 02:15:42 05/24/20 25 05/26/2025 COMPR EHENS MATTHEW METAB OLIC PANEL creatinine 0.88 mg/dL 0.70-1 .28 normal Not Available [address], [address], 05/26/2025 02:15:42 05/24/20 25 05/26/2025 COMPR EHENS MATTHEW METAB OLIC PANEL eGFR 88 mL/mi n/1.7 3m2 > or = 60 normal Not Available [address] [place], [address], 05/26/2025 02:15:42 05/24/20 25 05/26/2025 COMPR EHENS MATTHEW METAB OLIC PANEL BUN/creatini ne ratio SEE NOTE: (calc ) 6-22 Not Repor carolyn: BUN and Creat inine are withi n refer ence range . Not Available [address] [place], [address], 05/26/2025 02:15:42 05/24/20 25 05/26/2025 COMPR EHENS MATTHEW METAB OLIC PANEL sodium 139 mmol/ L 135-14 6 normal Not Available [address], [address], 05/26/2025 02:15:42 05/24/20 25 05/26/2025 COMPR EHENS MATTHEW METAB OLIC PANEL potassium 4.3 mmol/ L 3.5-5. 3 normal Not Available [address], [address], 05/26/2025 02:15:42 05/24/2005/26/2025 COMPR EHENS MATTHEW METAB OLIC PANEL chloride 106 mmol/ L 98-110 normal Not Available [address], [address], 05/26/2025 02:15:42 05/24/20 25 05/26/2025 COMPR EHENS MATTHEW METAB OLIC PANEL carbon dioxide 24 mmol/ L 20-32 normal Not Available [address], [address], 05/26/2025 02:15:42 05/24/20 25 05/26/2025 COMPR EHENS MATTHEW METAB OLIC PANEL calcium 9.1 mg/dL 8.6-10 .3 normal Not Available [address], [address], 05/26/2025 02:15:42 05/24/20 25 05/26/2025 COMPR EHENS MATTHEW METAB OLIC PANEL protein, total 6.4 g/dL 6.1-8. 1 normal Not Available [address], [address], 05/26/2025 02:15:42 05/24/20 25 05/26/2025 COMPR EHENS MATTHEW METAB OLIC PANEL albumin 4.3 g/dL 3.6-5. 1 normal Not Available [address], [address], 05/26/2025 02:15:42 05/24/2005/26/2025 COMPR EHENS MATTHEW METAB OLIC PANEL globulin 2.1 g/dL_ (calc ) 1.9-3. 7 normal Not Available [address], [address], 05/26/2025 02:15:42 05/24/20 25 05/26/2025 COMPR EHENS MATTHEW METAB OLIC PANEL albumin/glob ulin ratio 2.0 (calc ) 1.0-2. 5 normal Not Available [address], [address], 05/26/2025 02:15:42 05/24/20 25 05/26/2025 COMPR EHENS MATTHEW METAB OLIC PANEL bilirubin, total 1.6 mg/dL 0.2-1. 2 high Not Available [address], [address], 05/26/2025 02:15:42 05/24/2005/26/2025 COMPR EHENS MATTHEW METAB OLIC PANEL alkaline phosphatase 63 U/L 35-144 normal Not Available [address], [address], 05/26/2025 02:15:42 05/24/20 25 05/26/2025 COMPR EHENS MATTHEW METAB OLIC PANEL AST 13 U/L 10-35 normal Not Available [address], [address], 05/26/2025 02:15:42 05/24/20 25 05/26/2025 COMPR EHENS MATTHEW METAB OLIC PANEL ALT 8 U/L 9-46 low Not Available [address], [address], 05/26/2025 02:15:42 05/24/20 05/26/2025 CBC (INCL UDES DIFF/ PLT) white blood cell count 6.8 thous and/u L 3.8-10 .8 normal Not Available [address], [address], 05/26/2025 02:15:43 05/24/20 25 05/26/2025 CBC (INCL UDES DIFF/ PLT) red blood cell count 4.09 killian on/uL 4.20-5 .80 low Not Available [address], [address], 05/26/2025 02:15:43 05/24/2005/26/2025 CBC (INCL UDES DIFF/ PLT) hemoglobin 13.1 g/dL 13.2-1 7.1 low Not Available [address], [address], 05/26/2025 02:15:43 05/24/2005/26/2025 CBC (INCL UDES DIFF/ PLT) hematocrit 39.3 % 38.5-5 0.0 normal Not Available [address], [address], 05/26/2025 02:15:43 05/24/20 25 05/26/2025 CBC (INCL UDES DIFF/ PLT) MCV 96.1 fL 80.0-1 00.0 normal Not Available [address], [address], 05/26/2025 02:15:43 05/24/2005/26/2025 CBC (INCL UDES DIFF/ PLT) MCH 32.0 pg 27.0-3 3.0 normal Not Available [address], [address], 05/26/2025 02:15:43 05/24/20 25 05/26/2025 CBC (INCL UDES DIFF/ PLT) MCHC 33.3 g/dL 32.0-3 6.0 normal For adult s, a sligh t decre ase in the calcu lated MCHC value (in the range of 30 to 32 g/dL) is most likel y not clini maritza signi gonzales t; linh er, it shoul d be inter prete d with cauti on in corre [facility] n with other red cell edmond eters and the patie nt's clini zina condi tion. Not Available [facility] [address], [address], 05/26/2025 02:15:43 05/24/2005/26/2025 CBC (INCL UDES DIFF/ PLT) RDW 13.4 % 11.0-1 5.0 normal Not Available [address], [address], 05/26/2025 02:15:43 05/24/2005/26/2025 CBC (INCL UDES DIFF/ PLT) platelet count 312 thous and/u L 140-40 0 normal Not Available [facility] [address], [address], 05/26/2025 02:15:43 05/24/2005/26/2025 CBC (INCL UDES DIFF/ PLT) MPV 9.6 fL 7.5-12 .5 normal Not Available [facility] [address], [address], 05/26/2025 02:15:43 05/24/2005/26/2025 CBC (INCL UDES DIFF/ PLT) absolute neutrophils 4576 cells /uL 1500-7 800 normal Not Available [facility] [address], [address], 05/26/2025 02:15:43 05/24/20 25 05/26/2025 CBC (INCL UDES DIFF/ PLT) absolute lymphocytes 1408 cells /uL 850-39 00 normal Not Available [facility] [address], [address], 05/26/2025 02:15:43 05/24/20 25 05/26/2025 CBC (INCL UDES DIFF/ PLT) absolute monocytes 660 cells /uL 200-95 0 normal Not Available [address], [address], 05/26/2025 02:15:43 05/24/20 25 05/26/2025 CBC (INCL UDES DIFF/ PLT) absolute eosinophils 109 cells /uL 15-500 normal Not Available [address], [address], 05/26/2025 02:15:43 05/24/2005/26/2025 CBC (INCL UDES DIFF/ PLT) absolute basophils 48 cells /uL 0-200 normal Not Available [address], [address], 05/26/2025 02:15:43 05/24/20 25 05/26/2025 CBC (INCL UDES DIFF/ PLT) neutrophils 67.3 % normal Not Available [address], [address], 05/26/2025 02:15:43 05/24/20 25 05/26/2025 CBC (INCL UDES DIFF/ PLT) lymphocytes 20.7 % normal Not Available [address], [address], 05/26/2025 02:15:43 05/24/2005/26/2025 CBC (INCL UDES DIFF/ PLT) monocytes 9.7 % normal Not Available [address], [address], 05/26/2025 02:15:43 05/24/20 25 05/26/2025 CBC (INCL UDES DIFF/ PLT) eosinophils 1.6 % normal Not Available [address], [address], 05/26/2025 02:15:43 05/24/2005/26/2025 CBC (INCL UDES DIFF/ PLT) basophils 0.7 % normal Not Available [facility] [address] [place], [address], 05/26/2025 02:15:43 05/24/2005/26/2025 CEA cea <2.0 NG/mL [...] not be inter prete d as absol [place] evide nce of the prese nce or absen ce of disea se. Not Available [facility] [address] [place] [address], [place], [address], 05/26/2025 02:15:43 05/24/2005/26/2025 CA 19-9 Ca 19-9 35 U/mL <34 high This test was perfo rmed using the Sieme ns chemi lumin escen t metho d. Value s obtai rosibel from diffe rent assay metho ds canno t be used inter jackson eably . CA 19-9 level s, regar dless of value , shoul d not be inter prete d as absol [place] evide nce of the prese nce or absen ce of disea se. Not Available [facility] [address] [place], [place] [address] [place], [address], 05/26/2025 02:15:43 05/12/2005/12/2023 XR, abdom en, 2 or more views + XR, chest , 1 view No observ ation record ed. [address], [place], [address], 05/14/2023 09:45:07 07/18/20 23 07/03/2023 exerc ise stres s test No observ ation record ed. Not Available 2022 12:57:30 06/13/2006/13/2025 US, lisa interiano for abdom inal aorti c aneur ysm No observ ation record ed. [facility] [address], [place], [address], 06/14/2025 08:05:36 Result Notes None recorded. Problems Name Problem SNOMED Code Status Onset Date Resolution Date Notes Provider Name and Address Organization Details Recorded Time Hyperlip idemia 81532781 Completed 03/06/2021 MIKE Soto Attn: Accounting ,[address] [facility], [place], [address] , [facility] - SI 1 11:24:45 Gastroes ophageal reflux disease 165880629 Active Tara Harrisma null, [place] - [facility] 6 10:34:12 Conducti ve hearing loss 98075738 Active Tara Harrisma null, [place] - [facility] 6 10:34:30 Impotenc e Active Tara Harrisma null, [place] - [facility] 6 10:34:40 [facility] l hyperten eleanor [id number] Completed 201108/26/2019 Location : None;Sev erity: Moderate ;Progres s: Stable;A dded By: Karen Milton;Ad d to Current Problems : YES MIKE Soto Attn: Accounting ,[address] 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 Location : None;Sev erity: Moderate ;Progres s: Stable;A dded By: Lazara Fuentes;Add to Current Problems : NO Not Available [facility] 7 07:58:49 Senile hyperker atosis 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 Completed 201209/16/2018 Location : None;Sev erity: Moderate ;Progres s: Stable;A dded By: Brooke Oviedo;Add to Current Problems : NO MIKE Soto Attn: Accounting ,[address] [place], [place], [address] [place] [address] , [facility] 9 14:54:17 Closed fracture of rib 43613051 Completed 201308/26/2019 Location : None;Sev erity: Moderate ;Progres s: Stable;A dded By: Patrick Kovacs;Yusuf dd to Current Problems : NO MKIE Soto Attn: Accounting ,[address] [place], [place], [address] [place] [address] , [facility] 0 11:30:34 Screenin g procedur e Completed 201409/30/2014 Location : None;Sev erity: Moderate ;Progres s: Stable;A dded By: Lazara Fuentes;Add to Current Problems : YES Not Available [facility] 7 07:58:49 Psychose xual dysfunct ion associat ed with inhibite d libido [id number] Completed 201408/26/2019 Location : None;Sev erity: Moderate ;Progres s: Stable;A dded By: Lazara Fuentes;Add to Current Problems : YES MIKE Soto Attn: Accounting ,[address] [place], [place], [address] [place] [address] , [place] [facility] 0 11:31:36 Benign essentia l hyperten eleanor 2770389 Active 2014 Location : None;Sev erity: Moderate ;Progres s: Stable;A dded By: Lazara Fuentes;Add to Current Problems : YES Not Available [facility] 7 07:58:49 Middle ear conducti ve hearing loss 60136098 Completed 201408/26/2019 Location : None;Sev erity: Moderate ;Progres s: Stable;A dded By: Marycruz Reich i;Yusuf dd to Current Problems : YES MIKE Soto Attn: Accounting ,[address] [place], [address] , [facility] 0 11:31:26 Neoplasm of uncertai n behavior of skin 80580842 Completed 201404/07/2015 Location : None;Sev erity: Moderate ;Progres s: Stable;A dded By: Lazara Fuentes;Add to Current Problems : YES Not Available [facility] 7 07:58:49 Lumbar sprain 229929123 Completed 201404/07/2015 Location : None;Sev erity: Moderate ;Progres s: Stable;A dded By: Lazara Fuentes;Add to Current Problems : YES Not Available [facility] 7 07:58:49 Neoplasm of uncertai n behavior of skin 56088954 Completed 201403/16/2015 Location : None;Sev erity: Moderate ;Progres s: Stable;A dded By: Karen Milton;Billy d to Current Problems : YES Not Available [facility] 7 07:58:50 Diarrhea 02915491 Completed 201406/02/2015 Location : None;Sev erity: Moderate ;Progres s: Stable;A dded By: Nelda Peña; Add to Current Problems : YES Not Available [facility] 7 07:58:50 Family history of malignan t neoplasm of thoracic cavity structur e 155504099 Active 2014 Location : None;Sev erity: Moderate ;Progres s: Stable;A dded By: Lazara Fuentes;Add to Current Problems : YES Not Available [facility] 7 07:58:50 Prostate specific antigen above referenc e range 854945714 Completed 201409/08/2015 Location : None;Sev erity: Moderate ;Progres s: Stable;A dded By: Lazara Fuentes;Add to Current Problems : YES Not Available [facility] 7 07:58:50 Acute sinusiti s 78829024 Completed 201409/09/2015 Location : None;Sev erity: Moderate ;Progres s: Stable;A dded By: Brooke Oviedo;Add to Current Problems : YES Not Available [facility] 7 07:58:50 Screenin g for malignan t neoplasm of colon Active 2015 Location : None;Sev erity: Moderate ;Progres s: Stable;A dded By: Lazara Fuentes;Add to Current Problems : YES Not Available [facility] 7 07:58:50 Abnormal weight loss 004548265 Completed 201509/16/2018 Location : None;Sev erity: Moderate ;Progres s: Stable;A dded By: Marycruz Reich i;Yusuf dd to Current Problems : NO MIKE Soto Attn: Accounting ,[address] [place], [address] , [facility] 9 14:54:12 Contact dermatit is due to plants, except food Completed 201502/03/2016 Location : None;Sev erity: Moderate ;Progres s: Stable;A dded By: Marycruz Reich i;Yusuf dd to Current Problems : YES Not Available [facility] 7 07:58:51 Problem Notes Documentation Provider Name and Address Organization Details Recorded Time Director Biomedical Engineering Consult Note : This document (1 of 1) was received from [email or web address], [email or web address] [address]anthony eTrader Sam on 04/07/2025 through Direct Message along with the following message body content: Patient Name: PONCE GIBSON. Patient : 1945. Patient . Ro Harding yoel, [facility] 04/08/2025 14:55:38 Procedures Surgical History Date Name Laterality Status Provider Name and Address Organization Details Recorded Time 018 Knee arthroscopy/surger y completed Macey Zhou RN [facility] 06/22/2018 12:49:40 Hernia Repair completed [facility] 11/13/2017 13:39:13 Cholecystectomy completed [facility] 11/13/2017 13:39:07 Imaging Results None recorded. Procedure Notes None recorded. Medical Equipment None Reported. Allergies Allergen ID Allergen Name Allergen Category Reaction Reaction Severity Criticality Documentation Date Start Date Code Code System Note Provider Name and Address Organization Details Recorded Time 857051 Paxlovid medicatio n diarrhea Not available Not available 12/18/2021 Jacklyn diallo, [facility] 14:03:15 Medications Name Sig Start Date [...] ) by mouth daily 08/01 completed RxNorm: 111508;A corrie Substitu tion: True Not Available Not [...] ) by mouth qam 07/25 completed RxNorm: 412893;A llow Substitu tion: True Not Available Not [...] e 50 mcg/actua tion nasal spray,jenny pension Sanborn 1 spray every day by intranas al route. 09/16 completed Not Available Not Available Not Available doxycycli ne hyclate 100 mg tablet TAKE 1 TABLET BY MOUTH TWICE DAILY FOR 7 DAYS 05/29 completed Not Available Not Available Not Available dicyclomi ne 10 mg capsule Take 1 cap po qid prn 07/10 completed RxNorm: 950353;A llow Substitu tion: True Not Available Not [...] Updated DateTime 5 182.88 cm 23.1 kg/m2 22672.5 g 96 % 72 /min 98.1 [degF] 109/70 mm[Hg] Greta Lugo MA [facility] 5 10:11:10 Date Recorded Body height Body mass index (BMI) Body weight Body temperature Heart rate Oxygen saturation Systolic And Diastolic Provider Name and Address Organization Details Last Updated DateTime 4 182.88 cm 23.1 kg/m2 69623.5 g 98.5 [degF] 63 /min 96 % 108/65 mm[Hg] Blessing Montelongo MA [facility] 4 14:39:44 Date Recorded Body weight Body temperature Heart rate Oxygen saturation Body mass index (BMI) Body height Systolic And Diastolic Provider Name and Address Organization Details Last Updated DateTime 3 20264.8 9 g 97.9 [degF] 85 /min 96 % 23.3 kg/m2 182.88 cm 102/62 mm[Hg] Brian Ventura MA [facility] 3 10:06:39 Date Recorded Body height Body mass index (BMI) Body weight Body temperature Oxygen saturation Heart rate Systolic And Diastolic Provider Name and Address Organization Details Last Updated DateTime 5 182.88 cm 22.8 kg/m2 29800.5 2 g 97.9 [degF] 97 % 66 /min 119/65 mm[Hg] Guadalupe Gaming MA [facility] 5 11:30:19 Date Recorded Body height Body mass index (BMI) Body weight Body temperature Oxygen saturation Heart rate Systolic And Diastolic Provider Name and Address Organization Details Last Updated DateTime 3 182.88 cm 22.8 kg/m2 97559.2 2 g 97.3 [degF] 98 % 78 /min 120/71 mm[Hg] Greta Lugo [place] [facility] 3 10:35:35 Social History Question Answer Notes LastModified by Organizat ion Details LastModified Time Tobacco Smoking Status Never Smoker Amalia Hammer yoel, [place] - [facility] 09/16/2018 14:29:28 Do You Have An Advance [...] 7 Days, How Much Pain Have You Kaiser? None Information not available 03/06/2021 In General, [...] Past 7 Days, How Often Have You Kaiser Sleepy In The Daytime? Rarely Information not [...] anxious, or unable to sleep at night)? [id number] Information not available 03/06/2021 Family History Relationship [...] 1 completed MIKE Soto Attn: Accounting,[address], [place], [address] [place] [address], [place] [facility] 04/29/2023 09:22:48 COVID-19, mRNA, LNP-S, PF, 30 mcg/0.3 mL dose 1 completed MIKE Soto Attn: Accounting,[address], [place], [address] [place] [address], [place] [facility] 04/29/2023 09:22:48 COVID-19, mRNA, LNP-S, PF, 30 mcg/0.3 mL dose 1 completed MIKE Soto Attn: Accounting,[address], [place], [address] [place] [address] [place] [facility] 04/29/2023 09:22:48 Influenza, split virus, quadrivalent, preservative 7 completed Not Available [facility] 08/07/2019 02:33:02 Tdap 5 completed Not Available [facility] 05/24/2025 10:44:19 Tdap 8 completed Not Available [facility] 08/07/2019 02:45:24 Influenza, split virus, quadrivalent, preservative 8 completed Not Available [facility] 08/07/2019 02:51:07 Influenza, split virus, quadrivalent, preservative 0 completed AJITH [place], [place] [facility] 08/26/2019 12:10:01 Tdap 6 completed Tara Shahidajith [place], [place] [facility] 07/01/2016 10:36:30 Pneumococcal conjugate PCV 13 5 completed MIKE Soto Attn: Accounting,[address] [facility], [place], [address], [place] [facility] 04/29/2023 09:22:48 pneumococcal polysaccharide PPV23 4 completed MIKE Soto Attn: Accounting,[address] [facility], [place], [address], [place] [facility] 04/29/2023 09:22:48 Influenza, split virus, trivalent, preservative 2 completed Not Available [facility] 08/21/2019 02:11:43 Influenza, split virus, trivalent, preservative 3 completed Not Available [facility] 08/21/2019 02:11:43 Influenza, split virus, trivalent, preservative 4 completed Not Available [facility] 08/21/2019 02:11:43 Influenza, split virus, quadrivalent, preservative 5 completed Not Available [facility] 08/21/2019 02:11:43 Influenza, high-dose, trivalent, PF 4 completed Blessing Montelongo MA null, [place] - [facility] 04/15/2024 16:16:11 Influenza, high-dose, trivalent, PF 5 completed Guadalupe Gaming [place] null, [place] [facility] 05/24/2025 13:20:52 Pneumococcal conjugate PCV20, polysaccharide ZFM168 conjugate, adjuvant, PF 5 completed Guadalupe Gaming [place], [place] [facility] 05/24/2025 13:20:53 Past Encounters Encounter ID Performer Location Encounter Start Date Encounter Closed Date Diagnosis/Indication Diagnosis SNOMED-CT Code Diagnosis ICD10 Code Diagnosis IMO Codes Diagnosis Note [id number] Chago Fuentes MD [facility] [address] [place] [address] 07/01/2016 12:33:00 07/03/2016 15:22:59 Upper respiratory infection 03990182 J06.9 [id number] Jacklyn Redd MD [facility] [address] [place] [address] 07/12/2016 10:09:57 07/16/2016 11:48:46 Screening for malignant neoplasm of prostate 796072702 Z12.5 Family his tory of malignant neoplasm 490458274 Z80.9 Essential hypertension 59639256 I10 Hyperlipidemia 34030608 E78.5 [id number] Jacklyn Redd MD [facility] [address] [place] [address] 07/23/2016 09:42:12 07/24/2016 11:36:06 Administration of influenza vaccine 52053750 Z23 [id number] Jackyln Redd MD [facility] [address] [place] [address] 07/25/2017 11:15:42 07/25/2017 15:47:19 Acute sinusitis 88335482 J01.90 [id number] Chago Fuentes MD [facility] [address] [place] [address] 12/08/2017 16:43:28 12/09/2017 10:45:28 Gastroesophageal reflux disease 696174833 K21.9 Administra tion of diphtheria, pertussis, and tetanus vaccine 645360765 Z23 Adult heal th examination 610411736 Z00.00 Pain in thumb 064250660 M79.643 Primary er ectile dysfunction 104824801 N52.9 [id number] Chago Fuentes MD [facility] [address] [place] [address] 12/12/2017 09:04:47 12/16/2017 09:12:47 Benign essential hypertension 2171341 I10 Hyperlipidemia 92045285 E78.5 Adult heal th examination 330484356 Z00.00 Screening for malignant neoplasm of prostate 058043909 Z12.5 [id number] Chago Fuentes MD [facility] [address] [place] [address] 06/22/2018 12:12:32 06/23/2018 11:18:24 Benign essential hypertension 1551294 I10 Gastroesop hageal reflux disease 315600994 K21.9 Administra tion of influenza vaccine 02731932 Z23 Screening for malignant neoplasm of prostate 115365992 Z12.5 Active or passive immunization 101562292 Z23 Sinusitis 38789441 J32.9 Impacted c erumen of bilateral ears 8432652392 494375 H61.23 Use debrox daily for two weeks.Irri gate daily [id number] Jacklyn Redd MD [facility] [address] [place] [address] 09/16/2018 14:10:17 09/17/2018 13:30:34 Lacunar infarction 723391603 I63.81 no significan t sequelae, but one visit to neurology for anticoag recommenda tions vs none to be determined . Bilateral tinnitus 86524 79484 102 H93.13 continued f/u with audiology as discussed Benign par oxysmal positional vertigo 676227037 H81.11 Impacted c erumen of bilateral ears 6887483004 887065 H61.23 Anemia 811744037 D64.9 [id number] Jacklyn Redd MD [facility] [address] [place] [address] 08/26/2019 10:53:41 08/26/2019 12:28:08 Adult health examination 203643916 Z00.00 Health Risk Assessment collected and reviewed Hyperlipid emia screening 397289302 Z13.220 Screening for malignant neoplasm of prostate 491722411 Z12.5 Family his tory of malignant neoplasm of pancreas 810545619 Z80.0 per patient request sed rate to be added. Administra tion of influenza vaccine 90979700 Z23 [id number] Jacklyn Redd MD [facility] [address] [place] [address] 02/03/2020 11:07:40 02/03/2020 13:38:27 Allergic contact dermatitis 272089296 L23.9 Lacunar infarction 93039 8000 I63.81 [id number] Jacklyn Redd MD [facility] [address] [place] [address] 02/14/2020 14:50:58 02/14/2020 16:00:50 Anemia 033709921 D64.9 Bleeding i nternal hemorrhoids 51553761 K64.8 keep stool very soft, dietary measures and miralax discussed, sitz baths and witch wing pads prn. Prostate s pecific antigen above reference range 425962480 R97.20 saw urology and PSA has dropped Abnormal weight loss 267 543679 R63.4 reporting 10 pounds since last in the office, will see him in the office in 3 weeks when due for cbc repeat [id number] Jacklyn Redd MD [facility] [address] [place] [address] 03/06/2020 14:27:33 03/06/2020 17:24:35 Anemia 671624840 D64.9 Unintentio nal weight loss 568273932 R63.4 Family his tory of malignant neoplasm of pancreas 193733808 Z80.0 [id number] Jacklyn Redd MD [facility] [address] [place] [address] 03/29/2020 13:05:31 03/30/2020 11:45:05 Low back pain 693067144 M54.5 likely muscle bruise from blunt trauma. If he notices ANY blood or dark urine, he will come in for a urine dip. If no better let us know. No golf until pain resolved [id number] Jacklyn Redd MD [facility] [address] [place] [address] 03/06/2021 10:18:52 03/06/2021 15:08:55 Gastroesophageal reflux disease 080779566 K21.9 Adult heal th examination 710867623 Z00.00 Health Risk Assessment collected and reviewed Benign ess ential hypertension 1072765 I10 stable today Screening for malignant neoplasm of prostate 612096916 Z12.5 sees urology yearly and having every 6 months PSAs and last 2 were in the 3s. No symptoms Family his tory of malignant neoplasm of pancreas 940854276 Z80.0 Screening for malignant neoplasm of colon 302047524 Z12.11 discussed cologaurd, not interested currently, had hemoccult last year and was negative Pain of bi lateral hip joints 1955838237 5855292 M25.551 M25.552 will call when ready for referral to ortho. Not yet ready [id number] MIKE Soto [facility] [address] [place] [address] 12/12/2021 10:37:36 12/12/2021 15:13:06 COVID-19 671896746 U07.1 Lots of rest and fluids, tylenol or ibuprofen for headaches or body aches. Monitor for return of fever, extreme weakness or SOB. Call if no better or worsening symptoms. Isolation rules reviewed. [id number] Jacklyn Redd MD [facility] [address] [place] [address] 12/18/2021 12:31:14 12/18/2021 17:07:01 COVID-19 931192210 U07.1 Nausea 491569983 R11.0 [id number] Jacklyn Redd MD [facility] [address] [facility] [address] [place] [address] 03/19/2022 10:40:30 03/20/2022 13:53:52 Adult health examination 787343222 Z00.00 Health Risk Assessment collected and reviewed Gastroesop hageal reflux disease 712600495 K21.9 only take omeprazole as needed, like with late large meals and prn rarely Benign ess ential hypertension 3808013 I10 stable today History of anemia 179208 002 Z86.2 Family his tory of malignant neoplasm of pancreas 881683013 Z80.0 requests yearly CEAs for FH GI cancers. Screening for malignant neoplasm of prostate 643146230 Z12.5 sees urology yearly and having every 6 months PSAs and last 2 were in the 3s and just another one Juan Manuel and 3.6. No symptoms Administra tion of viral vaccine 73717594 Z23 would like RX for shingles vaccine [id number] Rene Mae MD [facility] [address] [place] [address] 04/29/2023 09:40:34 04/30/2023 14:41:53 Adult health examination 989321025 Z00.00 Health Risk Assessment collected and reviewed Administra tion of influenza vaccine 70803268 Z23 will get at [facility] when not coughing. Administra tion of pneumococcal vaccine 86135445 Z23 will be due next year 2023 Anemia 714831786 D64.9 Screening for malignant neoplasm of prostate 171177386 Z12.5 sees urology PSA 3.6, will get urology records for our chart. Hyperlipid emia screening 912701717 Z13.220 Family his tory of malignant neoplasm of pancreas 200354086 Z80.0 requests yearly CEAs and sed rate for FH GI cancers. Postviral cough 28518537 4 R05.3 declines liquid cough medication . Will give codeine tablet. Normal lung exam, COVID 2 weeks ago. Dyspnea on exertion 6084 5006 R06.09 when at the top of the [place] mowing the grass, which is out of the norm for him, no CP or nausea. Will refer to cardiology for stress testing, has never had one in the past. [id number] Rene Mae MD [facility] [address] [facility] [place] [address] 05/29/2023 10:20:52 05/29/2023 15:45:00 Gastroesophageal reflux disease 822798148 K21.9 only take omeprazole as needed, like with late large meals and prn rarely Right lowe r zone pneumonia 777717180 J18.1 Was minimal finding, possible atelectasi s only and symptom free with normal exam, no repeat CXR needed. External hemorrhoids 239 29115 K64.4 only aggravated with constipati on and/or diarrhea. Unintentio nal weight loss 801425249 R63.4 CT scan abd looks normal 2019 with initial work up. Labs reviewed all normal. Boost for protein suggested. Anemia 002983579 D64.9 with much fatigue post pneumonia and COVID, will give B12 injection, won't hurt. Start Centrum Silver daily with his lack of fruits and veggies in his diet. Will call if not feeling back to his normal energy level or if weight loss continues [id number] Verona Turner MD [facility] [address] [place] [address] 04/15/2024 14:27:30 04/15/2024 16:28:43 Gastroesophageal reflux disease 568987452 K21.9 only take omeprazole as needed, like with late large meals and prn rarely Adult heal th examination 912314040 Z00.00 Health Risk Assessment collected and reviewed Benign ess ential hypertension 0565072 I10 stable today, has a huge stock pile of metoprolol and doesn't need any. Screening for malignant neoplasm of prostate 512315275 Z12.5 sees urology PSA 3.3, will get urology records, Dr. Arnold at [facility] Pre-surger y evaluation 966976185 Z01.[address] Senior last June was fine. Hyperlipid emia screening 907441453 Z13.220 Ate today, cholestero l is unbelievab ly low. Administra tion of influenza vaccine 05462026 Z23 Family his tory of malignant neoplasm of pancreas 261654731 Z80.0 requests yearly CEAs and sed rate for FH GI cancers. [id number] Verona Turner MD [facility] [address] [facility] [address] [place] [address] 12/14/2024 09:40:18 12/15/2024 10:29:00 Diarrhea 22706837 R19.7 51184824 Black feces 781197404 K9 2.1 731336 intermitte ntly with history of anemia, will check FIIT test and labs, if anemia or iron deficiency has worsened will refer for EGD and colonoscop y. Will start daily metamucil and probiotic, avoid gas and diarrhea producing foods. [id number] Verona Turner MD [facility] [address] [facility] [address] [place] [address] 05/24/2025 10:43:21 05/24/2025 16:05:49 Adult health examination 332284627 Z00.00 Health Risk Assessment collected and reviewed. FIT test negative in November 2024 and colonoscop y with [facility] normal 2015 he declines further colorectal cancer screening, tetanus 12/05, zostavax completed, needs updated prevnar and influenza, recommende d seasonal covid and rsv. Hep C screening complete 06/19/21, offered AAA screening. Screening for malignant neoplasm of prostate 925834289 Z12.5 575750 sees urology PSA 3.3 last reported, will get urology records, Dr. Arnold at [facility] 3.1 this year. REceived records Benign ess ential hypertension 0960554 I10 stable today, has a huge stock pile of metoprolol and doesn't need any. Gastroesop hageal reflux disease 098473238 K21.9 Having pretty consistent dyspepsia where he has very bloated full feeling in his epigastriu m after lunch or dinner, gets relief with TUMS, also with this ST with soda and intermitte nt hoarseness . Agrees to EGD. Influenza vaccination given 8339976739 9109 Z23 65996648 Requires v accination against Streptococcus pneumoniae 6890847203 Z23 372317 Nausea 234188001 R11.0 Abdominal aortic aneurysm screening 383524256 Z13.6 673757 Family his tory of malignant neoplasm of pancreas 375302452 Z80.0 689688 requests yearly CEAs and sed rate for FH GI cancers. Will add this year a Ca 19-9 as well. Hoarse 28599032 R49.0 752322 with off and on ST rena with carbonatio n likely. EGD will cover the vocal cord visualizat ion Recurrent bleeding of nose 0925115214 102 R04.0 53245512 3 days in row two weeks ago, then once last week, none since then. Left side. Resolved after 10 minutes max. Saline NS daily recommende d, exam normal today. Impacted c erumen in left ear 3773688344 638562 H61.22 1640217 successful ear wash. Health Concerns Section Related Observation LastModified by Organization Detai ls LastModified Time None Recorded Concern Status LastModified by Organization Details LastModified Time None Recorded Advance Directives Directive Y: Payers Insurance Date Sequence Insurance Name Policy Number Policy Mckeon Covered Member ID Mckeon Member ID Guarantor Name 05/21/2025 [place] - [place] - [facility] Ponce Gibson [id number] Ponce Gibson 12/15/2024 1 HARRIET ESCALANTE - MEDICARE-[facility] (MEDICARE) Ponce Gibson [id number] Ponce Gibson 05/21/2025 1 [facility] (MEDICARE REPLACEMENT/A DVANTAGE - PPO) [id number] Ponce Gibson [id number] Ponce Gibson 12/15/2024 2 [employer] (MEDICARE SUPPLEMENT) Ponce Gibson [id number] Ponce Gibson 12/15/2024 1 [place] [employer] - MEDICARE-[address] [address] [facility] (MEDICARE) Ponce Gibson [id number] Ponce Gibson 12/15/2024 2 [place]: [facility] Ponce Gibson [id number] Ponce Gibson 12/15/2024 1 [place] [employer] - MEDICARE-[address] [facility] (MEDICARE) Ponce Gibson [id number] Ponce Gibson Notes Date Note Type [...] the HPI MIKE Soto Attn: Accounting[address] [place], [address], [facility] 04/29/2023 14:01:19 3 text/html FatigueReported [...] pneumonia diagnosis. MIKE Soto Attn: Accounting,[address], [place], [address], [place] [facility] 05/29/2023 11:27:33 4 text/html Generic HPI TemplateReported by Patientneeds updated H&P for podiatric surgery with Dr. gelacio Mack at [facility]. Saw cardiology last year 07/12 and had stress test at [facility] with Dr. Senior. MAW 2Reported by PatientSocial/Behavioral HistoryFor diet and [...] in the home.ROS as noted in the [facility] MIKE Soto Attn: Accounting,[address] [facility], [place], [address], [facility] 04/15/2024 15:30:21 5 text/html DiarrheaReported by PatientHPIFor [...] pill on occasion.ROS as noted in the [facility] MIKE Soto Attn: Accounting,[address] [facility], [place], [address], [facility] 12/14/2024 16:38:17 5 text/html MAW 2Reported by [...] the HPI MIKE Soto Attn: Accounting[address] [place], [address], [facility] - [facility] 05/24/2025 14:10:12
== END 2025-06-20 14:39 | disposition home or self-care (01) ==
PROVIDERS: PCP Physician Assistant; Visit Provider Physician Assistant
DX: R19.06 Epigastric swelling, mass or lump (principal); D64.9 Anemia, unspecified; R17 Unspecified jaundice; R10.13 Epigastric pain; R97.8 Other abnormal tumor markers; K40.90 Unilateral inguinal hernia, without obstruction or gangrene, not specified as recurrent; N40.0 Benign prostatic hyperplasia without lower urinary tract symptoms
CPT/HCPCS: 74177; Q9967

== ENCOUNTER 2025-07-15 13:20 | Emergency (ER) | payer MEDICARE, SELFPAY ==
[2025-07-15] VITALS (11 sets, daily range): BP systolic 91–145; BP diastolic 7–86; PULSE 59–90; RESP 13–20; TEMP 36.8; O2SAT 98–100
--- OUTSIDE RECORDS SUMMARY | 2025-07-15 13:21 | XMS_ITS | Clinical Summary ---
Author Organization [facility] Address [facility] [place] [address] Care Team Providers Care Blue Crabber Name Role Phone ParentGuadalupe Primary Care Provider [phone] Allergies No known active allergies Medications metoprolol [...] patient's age to complete this topic Insurance [facility] MEDICARE Advance Directives * Full Code (Latest Code Status on File) Date Activated Date Inactivated Comments 04/27/2024 10:05 AM 04/27/2024 12:05 PM Care Teams Blue Crabber Relationship Specialty Start Date End Date ParentGuadalupe PA PCP - General FAMILY PRACTICE 04/27/24
--- NOTE | 2025-07-15 15:23 | ECG_ITS ---
Test Date: 2025-07-15 15:39:02 Measurements Intervals [place] Rate: 59 P: -1 CT: 138 QRS: 24 QRSD: 93 T: 63 QT: 409 QTc: 406 Interpretive Statements SINUS BRADYCARDIA MINIMAL Q WAVES- HIGH LATERAL LEADS BORDERLINE T WAVE ABNORMALITY- ANTERIOR LEADS BASELINE ARTIFACT- I, II, AVR, AVL BORDERLINE ECG No previous ECG available for comparison Electronically Signed On 07-15-2025 19:42:35 [employer] OPER[employer] HELPER by Kelvin Shafer D.O.
[2025-07-15 15:33] LABS: Hematocrit 34.6 % (42.0-52.0); Hemoglobin 11.8 g/dL (14.0-18.0); Immature Granulocyte Percent A 0.4 % (0-0.5); Lymphocytes Absolute Auto 1.40 K/mm3 (0.9-3.2); Mean Corpuscular HGB Conc 34.1 g/dl (32-36); Mean Corpuscular Hemoglobin 32.3 pg (26-34); Mean Corpuscular Volume 94.8 fl (80-100); Nucleated Red Blood Cells Absolute Auto 0.000 K/mm3 (0.0-0.012); Nucleated Red Blood Cells Perc 0.0 % (0.0-0.2); Platelet Count Result 277 k/mm3 (150-375); Red Blood Count 3.65 M/mm3 (4.6-6.20); White Blood Count 6.7 K/mm3 (4.5-10.0)
[2025-07-15] MEDS: SODIUM CHLORIDE 0.9% IV 1,000 ML 999 ML IV CONT ×2 (15:47→17:17)
[2025-07-15 15:52] LABS: Alanine Aminotransferase 12 U/L (6-50); Albumin Level 3.8 g/dL (3.5-5.1); Alkaline Phosphatase 81 U/L (38-126); Anion Gap 3 mmol/L (4-12); Aspartate Amino Transferase 24 U/L (17-59); Bilirubin,Total 0.7 mg/dL (0.2-1.3); Blood Urea Nitrogen 17 mg/dL (9-20); Calcium 9.0 mg/dL (8.4-10.2); Carbon Dioxide 23 mmol/L (22-30); Chloride 110 mmol/L (98-107); Estimated CRCL calculation 66 ml/min; Estimated Glomerular Filt Rate > 60; Glucose 93 mg/dL (65-110); Potassium 3.8 mmol/L (3.4-5.0); Sodium 136 mmol/L (137-145); Total Protein 6.5 g/dL (6.3-8.2)
--- OUTSIDE RECORDS SUMMARY | 2025-07-15 15:54 | XMS_ITS | Clinical Summary ---
Author Organization [facility] Address [facility] [place] [address] Care Team Providers Care Sales Force Administrator Name Role Phone ParentGuadalupe Primary Care Provider [phone] Allergies No known active allergies Medications metoprolol [...] patient's age to complete this topic Insurance [facility] MEDICARE Advance Directives * Full Code (Latest Code Status on File) Date Activated Date Inactivated Comments 04/27/2024 10:05 AM 04/27/2024 12:05 PM Care Teams Sales Force Administrator Relationship Specialty Start Date End Date ParentGuadalupe PA PCP - General FAMILY PRACTICE 04/27/24
[2025-07-15 16:09] LABS: INR 1.2; Prothrombin Time 15.1 Seconds (11.1-14.7)
[2025-07-15 16:10] LABS: Partial Thromboplastin Time 34.9 Seconds (22.3-36.8)
--- NOTE | 2025-07-15 17:32 | ED.GENADULT ---
HPI - General Adult General Chief complaint: Weakness Stated complaint: not feeling good Time Seen by Provider: 07/15/25 15:13 History of Present Illness HPI narrative: Patient is a 72-year-old male who presents ER with weakness and fatigue. Patient reports over the last week and a half he has been having bloody stools related to hemorrhoids. He bleeds for about 10 minutes once a day when he has bowel movement. The last time this occurred was 2 days ago. He is not on any blood thinning medication. Patient also is currently being evaluated for possible gastritis that caused him to have early satiety the sleeping to him not being able to eat or drink much food or water he does not feel like he has been doing a good job keeping up with his output over last few days. Feels weak with exertion. He gets slightly lightheaded when he stands up. No chest pain or chest pressure. No abdominal pain. Patient does not use stool softeners to soak bite them being recommended. He is concerned he may have severe diarrhea that he cannot control Related Data Home Medications ?Medication ?Instructions ?Recorded ?Confirmed ?Last Taken ?Type metoprolol succinate 25 mg 25 mg PO DAILY 04/12/21 07/05/25 05/06/21 History tablet,extended release 24 hr omeprazole 40 mg capsule,delayed 40 mg PO DAILY 04/12/21 07/05/25 05/06/21 History release Allergies Allergy/AdvReac Type Severity Reaction Status Date / Time No Known Allergies Allergy Verified 07/15/25 13:22 Review of Systems Review of Systems: All systems reviewed & are unremarkable except as noted in HPI and below Constitutional: Constitutional: Reports no additional constitutional complaints ENT: Reports system reviewed and no additional complaints, except as documented Cardiovascular: Cardiovascular: Reports no additional cardiovascular complaints Respiratory: Respiratory: Reports no additional respiratory complaints Gastrointestinal: Gastrointestinal: Reports no additional gastrointestinal complaints [facility] Past Medical History Medical History (Updated 07/15/25 @ 17:37 by Sunil Alvarez MD) Chronic constipation Internal bleeding hemorrhoids Hypertension GERD (gastroesophageal reflux disease) Family History Family History Other Family history of malignant neoplasm Hypertension Social History Social History Smoking status: Never smoker Alcohol intake: never Substance use: never Living arrangements: with family Spiritual care concerns: No Exam Narrative: GENERAL: Well-appearing, well-nourished, and in no acute distress. HEAD: Normocephalic, atraumatic. ENT: Mucous membranes moist. CHEST: Clear to auscultation. No respiratory distress. HEART: Regular rate and rhythm. Normal peripheral pulses. ABDOMEN: Soft, nontender, nondistended. Rectal exam with multiple nonthrombosed nonbleeding external hemorrhoids. There does appear to be 1 hemorrhoid that is located on the inner aspect of the rectum that appears to have been blood previously and is firm mildly tender. No active hemorrhage or gross blood present. EXTREMITIES: Normal range of motion. No edema. SKIN: Warm, dry, no rash. NEURO: Alert and oriented x3. PSYCH: Normal mood and affect. Course Course Emergency Course: Initially orthostatic. Received 1 L IV fluid and blood pressures are improving and he is asymptomatic but he still has some mild drop in blood pressure. Blood work shows no anemia the patient is likely volume down. He has not bled for several days so his had time to equilibrate to their been acute blood loss. Recommend stool softeners, rectal suppositories to help with inflamed hemorrhoids, and follow-up with GI outpatient. Patient verbalized understanding treatment plan and feels comfortable. Vital Signs Vital signs: Vital Signs Temperature 98.2 F 07/15/25 13:53 Pulse Rate 84 07/15/25 13:53 Respiratory Rate 16 07/15/25 13:53 Blood Pressure 91/62 L 07/15/25 13:53 Pulse Oximetry 99 07/15/25 13:53 Temperature 98.2 F 07/15/25 13:53 Pulse Rate 77 07/15/25 18:13 Respiratory Rate 19 07/15/25 18:12 Blood Pressure 140/69 07/15/25 18:13 Pulse Oximetry 100 07/15/25 18:12 [facility] Differential Diagnosis Differential Diagnosis: Upper GI bleed, lower GI bleed, bleeding hemorrhoids, anemia Lab Data [facility] Lab Attestation statement: I personally reviewed the patient's lab results. 07/15/25 15:28 07/15/25 15:28 Labs: Lab Results 07/15/25 07/15/25 Range/Units 15:27 15:28 WBC 6.7 (4.5-10.0) K/mm3 RBC 3.65 L (4.6-6.20) M/mm3 Hgb 11.8 L (14.0-18.0) g/dL Hct 34.6 L (42.0-52.0) % MCV 94.8 (80-100) fl MCH 32.3 (26-34) pg MCHC 34.1 (32-36) g/dl RDW 13.8 (11.5-14.5) % Plt Count 277 (150-375) k/mm3 MPV 8.8 (7.4-10.4) fl Immature Gran % (Auto) 0.4 (0-0.5) % Neut % (Auto) 65.1 (45.5-73.1) % Lymph % (Auto) 20.9 (18.3-44.2) % [place] % (Auto) 10.7 H (2.6-8.5) % Eos % (Auto) 2.2 (0-4.4) % Baso % (Auto) 0.7 (0.2-1.2) % Lymph # (Auto) 1.40 (0.9-3.2) K/mm3 [place] # (Auto) 0.7 H (0.1-0.6) K/mm3 Eos # (Auto) 0.2 (0-0.3) K/mm3 Baso # (Auto) 0.1 (0.0-0.1) K/mm3 Abs Immat Gran (auto) 0.03 (0.00-0.031) K/mm3 Absolute Neuts (auto) 4.4 (1.3-6.7) K/mm3 Absolute Nucleated RBC 0.000 (0.0-0.012) K/mm3 Nucleated RBC % 0.0 (0.0-0.2) % PT 15.1 H (11.1-14.7) Seconds INR 1.2 APTT 34.9 (22.3-36.8) Seconds Sodium 136 L (137-145) mmol/L Potassium 3.8 (3.4-5.0) mmol/L Chloride 110 H (98-107) mmol/L Carbon Dioxide 23 (22-30) mmol/L Anion Gap 3 L (4-12) mmol/L BUN 17 (9-20) mg/dL Creatinine 0.82 (0.7-1.3) mg/dL Estim Creat Clear Calc 66 ml/min Estimated GFR > 60 (59 - ) Glucose 93 (65-110) mg/dL Calcium 9.0 (8.4-10.2) mg/dL Total Bilirubin 0.7 (0.2-1.3) mg/dL AST 24 (17-59) U/L ALT 12 (6-50) U/L Alkaline Phosphatase 81 (38-126) U/L Total Protein 6.5 (6.3-8.2) g/dL Albumin 3.8 (3.5-5.1) g/dL Blood Type O Negative Antibody Screen Negative ECG Data EKG #1: ECG completion date: 07/15/25 ECG completion time: 15:39 bradycardia (59), sinus rhythm, normal QRS, normal QT and NL axis Discharge Plan Discharge Clinical Impression: Orthostasis, Hemorrhoids Patient Disposition: Home Condition: Stable Instructions: Hemorrhoids (ED) Additional Instructions: Return to the emergency department if you develop severe abdominal pain, severe nausea and vomiting to the point where you are unable to keep down fluids, if you develop chest pain or difficulty breathing, blood in your stool, dizziness or fainting, or if you develop any other new or concerning symptoms as these could be signs of more serious medical illness. Try to stay well hydrated. Patient Language: Citizen [place] Prescriptions: New hydrocortisone acetate [Anusol-HC] 25 mg suppository 25 mg RECTAL BID Qty: 12 0RF docusate sodium [Colace] 100 mg capsule 100 mg PO BID Qty: 14 0RF No Action metoprolol succinate 25 mg tablet extended release 24 hr 25 mg PO DAILY omeprazole 40 mg capsule,delayed release(DR/EC) 40 mg PO DAILY ondansetron 4 mg tablet,disintegrating 4 mg PO DAILY PRN (Reason: nausea and vomiting) 5 Days Qty: 14 0RF Follow-up/Referrals: Orion Jeong MD [Physician, Gastroenterology] - 1 Week Parent,MIKE Nava [Primary Care Provider, Unknown]
== END 2025-07-15 18:40 | disposition home or self-care (01) ==
PROVIDERS: Emergency Provider Emergency Medicine; PCP Physician Assistant
DX: K64.4 Residual hemorrhoidal skin tags (principal); I95.1 Orthostatic hypotension; I10 Essential (primary) hypertension; K21.9 Gastro-esophageal reflux disease without esophagitis; R94.31 Abnormal electrocardiogram [ECG] [EKG]; R00.1 Bradycardia, unspecified
CPT/HCPCS: 36415; 80053; 85025; 85610; 85730; 86850; 86900; 86901; 93005; 96360; 96361; 99284; J7030